=== PATIENT | female | born 1965 | race Caucasian/White ===

== ENCOUNTER 2016-04-26 06:41 | Outpatient (CLI) | payer MEDICARE ==
[~2016-04-26] VITALS: Ht 167.6 cm; Wt 62.7 kg
--- NOTE | ~2016-04-26 | HEMODYNAMI ---
PATIENT:BRENDA LUZ MEDICAL RECORD: [id number] : 61 LOCATION:D.CAT ADMISSION DATE: 04/26/16 Generatedon:04/26/20169:27 Patient name: BRENDA LUZ Patient #: [id number] SSN: : 1965 Date of study: 04/26/2016 Page: Of Hemodynamic Procedure Report Patient Data Patient Demographics Procedure consent was obtained First Name: BRENDA Gender: Female Last Name: NATTY : 1965 [facility] Initial: D Age: 51 year(s) Patient #: [id number] Race: Additional ID: [id number] Contact details [address]: [address] [place] [address] [place] State: [place] City: [place] Zip code: [address] Past Medical History History of disease Date Diagnosis Comments CAD Allergies Allergen Reaction Date Comments Reported Other allergy 04/21/2015 Morphine, PCN, Stadol Other allergy 04/26/2016 stadol,pcn,morphine Admission Admission Data Admission Date: 04/26/2016 Admission Time: 6:41 Height (in.): 66 BSA: 1.71 (m2) Height (cm.): 167.64 BMI: 22.43 (kg/m2) Weight (lbs.): 139 Weight (kg.): 63.05 Current Diagnosis Diagnosis Description Stable angina Lab Results Lab Result Date: 04/26/2016 Lab Result Time: 0:00 Biochemistry Name Units Result Min Max BUN mg/dl 6 -*(----)-- 7 18 Creatinine mg/dl 1.1 --(--*-)-- 0.6 1.3 CBC Name Units Result Min Max Hemoglobin g/dl 15.3 --(-*--)-- 13.5 17.5 Procedure Procedure Types Cath Procedure Diagnostic Procedure [facility] w/Coronaries FFR/IVUS Intra-Coronary IVUS Initial PCI Procedure Coronary Stent Initial x2 Miscellaneous Procedures Moderate Sedation up to 30 minutes Procedure Description Procedure Date Procedure Date: 04/26/2016 Procedure Start Time: 8:59 Procedure End Time: 9:27 Procedure Staff Name Function Jc Rice MD Performing Physician Carly Leon RT Scrub Liv Landry RN Nurse Claudia Quinones RT Monitor Saqib Juárez RT Photo Journalist Procedure Data Cath Procedure Fluoroscopy Diagnostic fluoroscopy Total fluoroscopy Time: 8.3 time: 8.3 min min Diagnostic fluoroscopy Total fluoroscopy dose: 534 dose: 534 mGy mGy Contrast Material Contrast Material Type Amount (ml) Isovue 300 128 Entry Location Entry Primary Successful Side Size Upsize Upsize Entry Closure Succes sful Closure Location (Fr) 1 (Fr) 2 (Fr) Remarks Device Remarks Femoral Right 5 Fr Exoseal artery Estimated blood loss: 10 ml Diagnostic catheters Device Type Used For End Catheter Placement Cordis 5Fr Pigtail LV Angiography Catheter (MP) Cordis 5Fr JL 4.0 Left Coronary Catheter (MP) Angiography Cordis 5Fr 3DRC Catheter Right Coronary (MP) Angiography Diagnostic Infinity 5Fr Right Coronary AR 2 MOD catheter Angiography Diagnostic Infinity 5Fr Right Coronary AL 1 catheter Angiography Procedure Complications No complications Procedure Medications Medication Administration Route Dosage Oxygen NC 2 l/min Lidocaine 2% added to field 20 Heparin Flush Bag added to field 2 bags (1000units/500ml NS) 0.9% NaCl I.V. 100 ml/hr Zofran I.V. 4 mg Versed I.V. 1 mg Fentanyl I.V. 50 mcg Versed I.V. 1 mg Fentanyl I.V. 50 mcg Versed I.V. 1 mg Fentanyl I.V. 50 mcg Heparin Bolus I.V. 4000 units Versed I.V. 1 mg Fentanyl I.V. 50 mcg Versed I.V. 1 mg Fentanyl I.V. 50 mcg 0.9% NaCl I.V. bolus 500 ml Fentanyl I.V. 50 mcg Hemodynamics Rest BSA: 1.71 (m2) HGB: 15.3 (g/dl) O2 Consumption: Estimated: 170.11 (ml/min) O2 Co nsumption indexed: Estimated:99.48 (ml/min/m) Heart Rate: 77 (bpm) Snapshots Pre Cath Intra NCS Post Cath Vital Signs Time Heart Resp SPO2 etCO2 TH0uoic NIBP (mmHg) Rhythm Pain Sedation Rate (ipm) (%) (mmHg) (mmHg) Status Level (bpm) 8:42:25 74 19 100 0 0 116/74(100) NSR 0 (11) 10(A) , No pain 8:46:31 73 16 100 0 0 106/73(94) NSR 0 (11) 10(A) , No pain 8:50:35 78 16 100 0 0 115/70(102) NSR 0 (11) 10(A) , No pain 8:54:45 73 17 100 0 0 98/62(80) NSR 0 (11) 10(A) , No pain 8:58:50 73 15 99 0 0 91/55(76) NSR 0 (11) 10(A) , No pain 9:02:50 71 17 98 0 0 108/67(89) NSR 0 (11) 10(A) , No pain 9:06:58 81 17 95 0 0 99/61(75) NSR 0 (11) 10(A) , No pain 9:11:04 79 16 95 0 0 91/53(69) NSR 0 (11) 10(A) , No pain 9:15:09 83 16 97 0 0 85/49(65) NSR 0 (11) 10(A) , No pain 9:19:11 80 15 99 0 0 89/50(68) NSR 0 (11) 10(A) , No pain 9:23:15 80 17 100 0 0 89/54(72) NSR 0 (11) 10(A) , No pain 9:27:17 76 11 99 0 0 84/56(68) NSR 0 (11) 10(A) , No pain Medications Time Medication Route Dose Verified Delivered Reason Notes Effectiveness by by 8:44:59 Oxygen NC 2 Jc Peck used for l/min Krystal Landry RN procedure 8:45:05 Lidocaine 2% added 20ml Jc Jc for local to vial Krystal Rice MD anesthetic field 8:45:12 Heparin Flush added 2 Jc Greene used for Bag to bags Krystal Rice MD procedure (1000units/500ml field NS) 8:45:20 Zofran I.V. 4 mg Jc Peck Per physician pt Krystal Landry RN states nausea 8:45:20 0.9% NaCl I.V. 100 Jc Buffie Per physician ml/hr Krystal Landry RN 8:56:35 Versed I.V. 1 mg Jc Buffie for sedation Krystal Landry RN 8:56:41 Fentanyl I.V. 50 Jc Buffie for sedation mcg Krystal Landry RN 9:00:58 Versed I.V. 1 mg Jc Buffie for sedation Krystal Landry RN 9:01:02 Fentanyl I.V. 50 Jc Buffie for sedation mcg Krystal Landry RN 9:03:53 Versed I.V. 1 mg Jc Buffie for sedation Krystal Landry RN 9:03:57 Fentanyl I.V. 50 Jc Buffie for sedation mcg Krystal Landry RN 9:07:00 Fentanyl I.V. 50 Jc Buffie for sedation mcg Krystal Landry RN 9:07:56 Versed I.V. 1 mg Jc Buffie for sedation Krystal Landry RN 9:11:47 Heparin Bolus I.V. 4000 Jc Buffie for verifie d units Krystal Landry RN anticoagulation rodrigo rice 9:12:28 Versed I.V. 1 mg Jc Buffie for sedation Krystal Landry RN 9:12:32 Fentanyl I.V. 50 Jc Buffie for sedation mcg Krystal Landry RN 9:15:29 0.9% NaCl I.V. 500 Jc Leviie Per physician bolus ml Krystal Landry RN 9:18:21 Fentanyl I.V. 50 Jc Buffie for sedation mcg Krystal Landry RN Procedure Log Time Note 8:29:42 ACC Patient presents with Stable Angina CCS Anginal Class 2--Slight limitation of ordinary activity. 8:29:44 Diagnostic Cath status Elective 8:29:47 Jan Fairbanks RT(R) sent for patient. Start room use. 8:29:51 Time tracking: Regular hours 8:29:56 Plan of Care:Hemodynamics will remain stable., Cardiac rhythm will remain stable., Comfort level will be maintained., Respiratory function will remain adequate., Patient/ family verbilizes understanding of procedure., Procedure tolerated without complication., Recovers from procedure without complications.. 8:30:46 Lab Result : Hemoglobin 15.3 g/dl 8:30:46 Lab Result : Creatinine 1.1 mg/dl 8:30:46 Lab Result : BUN 6 mg/dl 8:34:47 Patient Height : 66 inches 8:34:50 Patient Weight : 139 lbs 8:34:54 Current Diagnosis : Stable angina 8:35:36 Patient received from Pre/Post Procedure Room to CCL 1 Alert and oriented. Tansferred to table in Supine position. 8:35:37 Warm blankets applied, and terese hugger turned on for patient comfort. 8:35:38 Correct patient and procedure confirmed by team. 8:35:39 Signed procedure consent form obtained from patient. 8:35:40 ECG and BP/O2 sat monitors applied to patient. 8:41:25 Vital chart was started 8:42:17 Full Disclosure recording started 8:42:20 Rhythm: sinus rhythm 8:42:26 H&P Date Dictated: 04/24/2016 Within 30 days and on chart., H&P Addendum completed by physician on day of procedure. (MUST COMPLETE FOR ALL OUTPATIENTS). 8:42:27 Pre-procedure instructions explained to patient. 8:42:27 Pre-op teaching completed and patient verbalized understanding. 8:42:28 Family in waiting room. 8:42:32 Patient NPO since Midnight. 8:43:20 Patient allergic to Other allergystadol,pcn,morphine 8:43:22 Is the patient allergic to Iodine/contrast media? No. 8:43:28 Is patient on blood thinner?Yes 8:43:30 ACC The patient was administered the following blood thiners within the last 24 hours: ACCPlavix 8:43:54 Patient diabetic? No. 8:43:56 Previous problem with sedation/anesthesia? No ? 8:44:08 Snore? Yes 8:44:09 Sleep apnea? No 8:44:10 Deviated septum? No 8:44:10 Opens mouth fully? Yes 8:44:11 Sticks out tongue? Yes 8:44:13 Airway obstruction? No ? 8:44:15 Dentures? No ? 8:44:22 Pre procedure: right dorsailis pedis pulse 2+ Normal; easily identifiable; not easily obliterated 8:44:24 Patient pain scale 0/10 ?. 8:44:38 IV patent on arrival in left hand with 0.9% NaCl at O. 8:44:51 Lab results completed and on chart. 8:44:56 Right groin area was prepped with chlora-prep and draped in sterile fashion 8:44:57 Alarms reviewed by R. N. 8:44:57 Sharps counted by scrub and verified by R.N. 8:44:59 Oxygen 2 l/min NC was given by Liv Landry RN; used for procedure; 8:45:05 Lidocaine 2% 20ml vial added to field was given by Jc Rice MD; for local anesthetic; 8:45:12 Heparin Flush Bag (1000units/500ml NS) 2 bags added to field was given by Jc Rice MD; used for procedure; 8:45:20 Zofran 4 mg I.V. was given by Liv Landry RN; Per physician; pt states nausea 8:45:20 0.9% NaCl 100 ml/hr I.V. was given by Liv Landry RN; Per physician; 8:46:25 Use device set Femoral Dx 8:46:26 Acist Syringe opened to sterile field. 8:46:27 Bag Decanter opened to sterile field. 8:46:28 Medline Cath Pack opened to sterile field. 8:46:28 Terumo 5Fr [place] Sheath opened to sterile field. 8:46:29 St Lamine 260cm J .035 wire opened to sterile field. 8:46:30 Acist Hand Control opened to sterile field. 8:46:31 Acist Manifold opened to sterile field. 8:46:32 Diagnostic Infinity 5Fr Multipack catheter opened to sterile field. 8:46:33 Tegaderm 4 x 4 opened to sterile field. 8:50:51 Baseline sample Acquired. 8:52:46 Physician paged 8:54:00 Zero performed for pressure channel P1 8:55:31 Final Timeout: patient, procedure, and site verified with staff and physician. All members of the team are in agreement. 8:55:33 Right groin site verified by team. 8:55:37 Physical assessment completed. ASA score P 2 - A patient with mild systemic disease as per Jc Rice MD. 8:55:40 Sedation plan: IV Moderate Sedation Versed, Fentanyl 8:56:35 Versed 1 mg I.V. was given by Liv Landry RN; for sedation; 8:56:41 Fentanyl 50 mcg I.V. was given by Liv Landry RN; for sedation; 8:58:26 Procedure started. 8:59:45 Local anesthetic to right femoral artery with Lidocaine 2% by Jc Rice MD.INITIAL ACCESS ONLY 9:00:37 A 5 Fr sheath was inserted into the Right Femoral artery 9:00:58 Versed 1 mg I.V. was given by Liv Landry RN; for sedation; 9:01:02 Fentanyl 50 mcg I.V. was given by Liv Landry RN; for sedation; 9:01:35 A Cordis 5Fr Pigtail Catheter (MP) was advanced over the wire and used for LV Angiography. 9:01:38 Catheter removed. 9:02:11 A Cordis 5Fr JL 4.0 Catheter (MP) was advanced over the wire and used for Left Coronary Angiography. 9:02:45 Curtis Whisper J 300cm 0.014 guide wire opened to sterile field. 9:02:46 Comuto BasixCompak Inflation Kit opened to sterile field. 9:02:59 Terumo 6Fr [place] Sheath opened to sterile field. 9:03:43 Catheter removed. 9:03:48 A Cordis 5Fr 3DRC Catheter (MP) was advanced over the wire and used for Right Coronary Angiography.removed; unable to cannulate. 9:03:53 Versed 1 mg I.V. was given by Liv Landry RN; for sedation; 9:03:57 Fentanyl 50 mcg I.V. was given by Liv Landry RN; for sedation; 9:04:58 A Diagnostic Infinity 5Fr AR 2 MOD catheter was advanced over the wire and used for Right Coronary Angiography.removed; unable to cannulate. 9:06:36 Palringotronic Launcher 6Fr HS I guide catheter opened to sterile field. 9:06:47 6 Fr HS 1 guide catheter was inserted over the wire 9:07:00 Fentanyl 50 mcg I.V. was given by Liv Landry RN; for sedation; 9:07:56 Versed 1 mg I.V. was given by Liv Landry RN; for sedation; 9:09:11 Guide Catheter removed. unable to cannulate vessel. 9:09:40 A Diagnostic Infinity 5Fr AL 1 catheter was advanced over the wire and used for Right Coronary Angiography. 9:10:56 Catheter removed. 9:11:08 [place] IVUS Catheter opened to sterile field. 9:11:47 Heparin Bolus 4000 units I.V. was given by Liv Landry RN; for anticoagulation; verified rodrigo rice 9:11:57 Cordis 6FR XBLAD 3.5 guide catheter opened to sterile field. 9:12:10 6 Fr XBLAD 3.5 guide catheter was inserted over the wire 9:12:18 Whisper wire advanced. 9:12:28 Versed 1 mg I.V. was given by Liv Landry RN; for sedation; 9:12:31 IVUS catheter advanced over wire. 9:12:32 Fentanyl 50 mcg I.V. was given by Liv Landry RN; for sedation; 9:13:36 IVUS pass to Circ lesion performed. 9:15:23 IVUS catheter removed over wire. 9:15:29 0.9% NaCl 500 ml I.V. bolus was given by Liv Landry RN; Per physician; 9:17:01 Inflation Number: 1 A Medtronic Resolute 3.0 X 15 stent was prepped and advanced across the Mid CX. The stent was deployed at 13 SHERRI for 0:09 (min:sec). 9:17:19 Wire redirected to LAD. 9:17:47 Inflation number: 1 The stent balloon was then re-inflated across the Prox LAD to 21 SHERRI for 0:11 (min:sec). 9:18:05 Stent catheter was removed intact over wire. 9:18:21 Fentanyl 50 mcg I.V. was given by Liv Landry RN; for sedation; 9:19:50 Inflation Number: 2 A Medtronic Resolute 3.5 X 12 stent was prepped and advanced across the Prox LAD. The stent was deployed at 17 SHERRI for 0:07 (min:sec). 9:20:23 Stent catheter was removed intact over wire. 9:20:24 Wire removed. 9:20:24 Guide catheter removed. 9:20:31 Sheath removed intact; hemostasis achieved with Exoseal to the Right Femoral artery. 9:20:35 Procedure ended.(Physican Out) 9:21:12 Fluoroscopy time 08.30 minutes. 9:21:15 Fluoroscopy dose: 534 mGy 9:21:15 Flurop Dose total: 534 9:21:19 Contrast amount:Isovue 300 128ml. 9:21:20 Sharps counted by scrub and verified by R.N. 9:21:28 Insertion/operative site no bleeding no hematoma. 9:21:35 Post-op/insertion site Right Femoral artery dressed using a 4 x 4 and Tegaderm. 9:21:39 Post right femoral artery:stable, clean and dry 9:21:40 Post Procedure Pulses reassessed and unchanged 9:21:44 Post-procedure physical assessment completed. ASA score P 2 - A patient with mild systemic disease as per Jc Rice MD. 9:21:46 Post procedure rhythm: unchanged. 9:22:02 Estimated blood loss: 10 ml 9:22:04 Post procedure instruction explained to patient.Patient verbalizes understanding. 9:22:04 Patient needs reinforcement of post procedure teaching. 9:22:18 Procedure type changed to Cath procedure, Diagnostic procedure, LHC, LHC w/Coronaries, FFR/IVUS, Intra-Coronary IVUS Initial, PCI procedure, Coronary Stent Initial x2, Miscellaneous Procedures, Moderate Sedation up to 30 minutes 9:22:24 Procedure Complication : No complications 9:22:36 See physician's report for complete and final results. 9:23:51 Cordis 6Fr Exoseal opened to sterile field. 9:24:20 Procedure and supply charges have been captured, reviewed, submitted and are correct. 9:26:54 Vital chart was stopped 9:26:55 Report given to Pre/Post Procedure Room. 9:26:58 Patient transfered to Pre/Post Procedure Room with Stretcher. 9:27:06 Procedure ended. 9:27:06 Full Disclosure recording stopped 9:27:37 End room use (Document Last) Intervention Summary Intervention Notes Time ActionType Lesion and Equipment Action# Pressure Duration Attributes Used 9:17:01 Place stent Mid CX Medtronic 1 13 00:09 Resolute 3.0 X 15 stent 9:17:47 Reinflate Prox LAD Medtronic 1 21 00:11 stent Resolute balloon 3.0 X 15 stent 9:19:50 [address] stent Prox LAD Medtronic 2 17 00:07 Resolute 3.5 X 12 stent Device Usage Item Name Manufacture Quantity Catalog Hospital Part Current Minimal Lot# / Number Charge Number Stock Stock Serial# Code Donte Kent 1 16265 [id number] 979681 062034 20 Syringe Medical [employer] Bag Microtek 1 2002S 135107 45200 123572 5 Retention Education. Medline Cardinal 1 [id number] 177278 69224 630583 5 Cath Pack Health Terumo 5Fr Terumo 1 KPC162 206404 052261 086014 [address] Lamine St Lamine 1 536576 383929 885320 424760 30 260cm J .035 wire Acist Hand Acist 1 66318 744384 321538 745630 5 Control Medical Systems Inc Acist Acist 1 34376 806489 069028 408786 5 [facility] Medical Systems Inc Diagnostic Cardinal 1 RA0100 438224 [address] Labs Health 5Fr Multipack catheter Tegaderm 4 3M 1 1626W 200212 008733 080640 5 x 4 Cordis 5Fr Cardinal 1 856819 5 Pigtail Health Catheter (MP) Cordis 5Fr Cardinal 1 010684 5 JL 4.0 Health Catheter (MP) Curtis Curtis 1 [id number] 765589 061651 101866 5 Whisper J Vascular 300cm 0.014 guide wire Merit Merit 1 [id number] 258628 853375 949041 15 InstallMonetizer Medical Inflation Kit Terumo 6Fr Terumo 1 CAY360 988082 708382 617136 40 [place] Sheath Cordis 5Fr Cardinal 1 540924 5 3DRC Health Catheter (MP) Diagnostic Cardinal 1 [id number] 813476 590594 963830 20 ePAC Technologies 5Fr AR 2 MOD catheter Medtronic Medtronic 1 [id number] 425957 34571 283169 1 Launcher 6Fr HS I guide catheter Diagnostic Cardinal 1 [id number] 265822 801982 062369 15 ePAC Technologies 5Fr AL 1 catheter [place] 1 [id number] 621495 532581 734371 8 [place] Eagleye IVUS Catheter Cordis 6FR Cardinal 1 [id number] 423833 333111 342235 10 XBLAD 3.5 Health guide catheter Medtronic Medtronic 1 [id number] 189442 185917 1 [id number] Resolute 3.0 X 15 stent Medtronic Medtronic 1 [id number] 249280 780581 6 [id number] Resolute 3.5 X 12 stent Cordis 6Fr Cardinal 1 EX600 519052 308775 703632 10 INBEP Signature Audit [place] Stage Time Signature Unsigned Intra-Procedure 04/26/2016 Claudia 9:27:48 AM Counts RT(R) Signatures Monitor : Claudia Signature : Counts RT Date : Time : [facility] [address] [facility] [place] [address]
[~2016-04-26 06:41] MED LIST: ARMOUR THYROID30 MG PO; ASPIRIN 81 MG E81 MG PO; NORCO 10/325 TA1 TA1 PO; NUCYNTA100 MG PO; PLAVIX75 MG PO; PRAVACHOL40 MG PO; VITAMIN D250000 UNIT; VIVELLE-DO1 PATCH.B1 TD; XANAX0.5 MG PO; ZIAC 5/6.25 MG1 TAB PO; ZOCOR20 MG PO
[2016-04-26 07:00] VITALS: BP 113/75; Ht 167.6 cm; Wt 62.7 kg
[2016-04-26 07:22] LABS: BASOPHILS 0.1 % (0.0-2.0); EOSINOPHILS 0.5 % (0-7); HEMATOCRIT 44.3 % (36.0-48.0); HEMOGLOBIN 15.3 g/dL (12-16); IMMATURE GRANULOCYTES 0.1 % (0-5); LYMPHOCYTES 33.2 % (15-50); MCH 32.9 pg (26.0-34.0); MCHC 34.5 g/dL (31.0-37.0); MCV 95.3 fL (80.0-100.0); MEAN PLATELET VOLUME 10.4 fL (7.4-10.4); MONOCYTES 5.4 % (2-11); NEUTROPHILS 60.7 % (40-80); PLATELET COUNT 183 10x3/uL (130-400); RBC 4.65 10x6/uL (4.00-5.40); RDW 12.8 % (11.5-14.5); WBC 7.3 10x3/uL (4.8-10.8)
[2016-04-26 07:23] LABS: ANION GAP 13.5 mmol/L (8-16); CALCIUM 9.1 mg/dL (8.5-10.1); CARBON DIOXIDE 27.5 mmol/L (21.0-32.0); CREATININE - SERUM 1.1 mg/dL (0.6-1.3)
--- NOTE | 2016-04-26 09:55 | NUR ---
PATIENT C/O BACK PAIN. NORCO 10MG/325PO GIVEN PER ORDER. 20MG ORDERED PER DR. HIRSCH BUT PATIENT REQUESTED ON LY 10MG. ALL VITALS REMAIN WNL. NSR RATE 67 W NO C/O CHEST PAIN. PULSES PALP X 4. R GROIN 6F EXOSEAL C/D/I WITH NO HEMATOMA OR BLEEDING. BROTHER AT BEDSIDE.
--- NOTE | 2016-04-26 11:21 | NUR ---
PATIENT C/O BACK PAIN 10/17, WILL NOT TAKE ANOTHER NORCO STATES "ITS LIKE TAKING WATER!" CALLED JOYCELYN IN LAB. T/O FOR DILAUDID 2MG IV NOW. WILL MONITOR FOR EFFECTIVENESS. R GROIN REMAINS C/D/I WITH NO HEMATOMA OR BLEEDING.
--- NOTE | 2016-04-26 12:03 | NUR ---
DILAUDID AND ZOFRAN BOTH GIVEN IV PER ORDER. WILL MONITOR FOR EFFECTIVENESS. ALL VITALS WNL. R GROIN REMAINS C/D/I WITH NO HEMATOMA OR BLEEDING.
--- NOTE | 2016-04-26 12:27 | NUR ---
VSS WITH CHEST PAIN DENIED HR 68 6FR EXOSEAL R/GROIN CDI NO BLEEDING NO HEMATOMA NOTED WILL MONITOR
--- NOTE | 2016-04-26 12:53 | NUR ---
HOB ELEVATED, WILL MONITOR R GROIN FOR BLEEDING.
--- NOTE | 2016-04-26 13:23 | NUR ---
PIV REMOVED FROM LEFT ARM WITH DRESSING APPLIED CHEST PAIN IS DENIED WITH VSS. DRESSING TO R GROIN CHANGED. TEGADERM AND 2X2 APPLIED. UP FROM BED TO DRESS.
--- NOTE | 2016-04-26 13:30 | NUR ---
AMBULATED TO BATHROOM TO VOID. D/C INSTRUCTIONS DISCUSSED WITH PATIENT AND FAMILY AT BEDSIDE. WHEELED OUT BY GARBAGE COLLECTOR DRIVER TEAM. R GROIN REMAINS C/D/I WITH NO HEMATOMA OR BLEEDING.
--- NOTE | 2016-05-03 08:46 | OP ---
PATIENT NAME: BRENDA LUZ MEDICAL RECORD: [id number] :61 LOCATION:D.CAT ADMISSION DATE: SURGEON: LAURA HIRSCH MD DATE OF OPERATION: 04/26/2016 PROCEDURES: 1. PTCA stent of the LAD. 2. PTCA stent of the left circumflex. 3. Intravascular ultrasound ____ circumflex. 4. Left heart catheterization. 5. Selective coronary angiography. 6. Left ventriculogram. INDICATION: Angina and coronary artery disease. DESCRIPTION OF THE PROCEDURE: After informed consent was obtained, after detailed explanation of risks, benefits as well as alternative therapies, the patient elected to proceed with angiogram and angioplasty. The right femoral area was prepped and draped in a normal sterile fashion. Right femoral artery was cannulated via modified Seldinger technique with placement of 6-Welsh sheath. All catheters exchanged through this sheath. FINDINGS: The left ventriculogram was performed in the standard 30-degree AMANDA view reveals good cardiac wall motion throughout all segments. Overall ejection fraction estimated 50%. SELECTIVE CORONARY ANGIOGRAPHY: 1. Left main showed no significant angiographic disease. 2. Left anterior descending has previously placed stent with greater than 70% in-stent restenosis proximally, otherwise the LAD and its branches have mild irregularities, but no flow-limiting stenosis. 3. The left circumflex has a 65% to 70% stenosis proximally confirmed by intravascular ultrasound. 4. The right coronary has previously placed stent. This is widely patent. There is no disease elsewise throughout the RCA or its branches throughout. PERCUTANEOUS TRANSLUMINAL CORONARY ANGIOPLASTY STENT OF THE LEFT ANTERIOR DESCENDING AND CIRCUMFLEX: The circumflex was addressed with a 3.0 x 15 mm Resolute, the LAD with a 3.5 x 12 mm Resolute. Result was 0% residual stenosis. OVERALL IMPRESSION: Successful percutaneous transluminal coronary angioplasty stent of the left anterior descending and circumflex, both going from 65% to 70% initial stenosis to 0% residual. TRANSINT:[id number] Voice Confirmation ID: [id number] DOCUMENT ID: [id number] LAURA HIRSCH MD at 0846 CC: [id number] DICTATION DATE: 04/26/16 0924 MEDICAL BILLER CODER: 04/26/16 1810 DEP CLI 04/26/16 [facility] [address] [place] [address]
== END 2016-04-26 13:34 | disposition home or self-care (01) ==
LOC: D.CATH 06:41
PROVIDERS: Internal Medicine Interventional Cardiology
DX: I25.119 Atherosclerotic heart disease of native coronary artery with unspecified angina pectoris (principal); T82.855A Stenosis of coronary artery stent, initial encounter
CPT/HCPCS: 92978; 93458; C9600 ×2

== ENCOUNTER 2016-06-25 15:32 | Emergency (ER) | payer MEDICARE ==
[2016-04-26 07:00] VITALS: BMI 22.3
[2016-06-25 16:27] LABS: BASOPHILS 0.1 % (0.0-2.0); EOSINOPHILS 0.2 % (0-7); HEMATOCRIT 42.4 % (36.0-48.0); HEMOGLOBIN 14.3 g/dL (12-16); LYMPHOCYTES 29.7 % (15-50); MCH 33.3 pg (26.0-34.0); MCHC 33.7 g/dL (31.0-37.0); MCV 98.8 fL (80.0-100.0); MEAN PLATELET VOLUME 10.2 fL (7.4-10.4); MONOCYTES 3.4 % (2-11); NEUTROPHILS 66.6 % (40-80); PLATELET COUNT 211 10x3/uL (130-400); RBC 4.29 10x6/uL (4.00-5.40); RDW 13.1 % (11.5-14.5)
[2016-06-25 16:34] LABS: APPEARANCE CLEAR (CLEAR); BILIRUBIN NEGATIVE (NEGATIVE); COLOR YELLOW (YELLOW); GLUCOSE NEGATIVE (NEGATIVE); KETONE NEGATIVE (NEGATIVE); LEUKOCYTE ESTERASE NEGATIVE (NEGATIVE); NITRITE NEGATIVE (NEGATIVE); PROTEIN NEGATIVE (NEGATIVE); UROBILINOGEN NORMAL (NORMAL)
[2016-06-25 16:43] LABS: ALBUMIN 3.7 g/dL (3.4-5.0); BILIRUBIN - TOTAL 0.35 mg/dL (0.2-1.3); CARBON DIOXIDE 33.6 mmol/L (21.0-32.0); CREATININE - SERUM 1.2 mg/dL (0.6-1.3); POTASSIUM - SERUM 3.6 mmol/L (3.5-5.1); PROTEIN - SERUM 7.7 g/dL (6.4-8.2)
== END 2016-06-25 19:06 | disposition home or self-care (01) ==
LOC: D.ER 15:32
PROVIDERS: Emergency Medicine
DX: R10.9 Unspecified abdominal pain (principal); I25.10 Atherosclerotic heart disease of native coronary artery without angina pectoris

== ENCOUNTER 2016-11-08 07:44 | Outpatient (CLI) | payer MEDICARE ==
[~2016-11-08] VITALS: Ht 167.6 cm; Wt 60.9 kg
--- NOTE | ~2016-11-08 | HEMODYNAMI ---
PATIENT:BRENDA LUZ MEDICAL RECORD: [id number] : 61 LOCATION:D.CAT ADMISSION DATE: 11/08/16 Generatedon:11/08/201610:31 Patient name: BRENDA LUZ Patient #: [id number] SSN: : 1965 Date of study: 11/08/2016 Page: Of Hemodynamic Procedure Report Patient Data Patient Demographics Procedure consent was obtained First Name: BRENDA Gender: Female Last Name: NATTY : 1965 [facility] Initial: D Age: 51 year(s) Patient #: [id number] Race: Additional ID: [id number] Contact details [address]: [address] [place] [address] [place] State: [place] City: [place] Zip code: [address] Past Medical History History of disease Date Diagnosis Comments CAD Allergies Allergen Reaction Date Comments Reported Other allergy 04/21/2015 Morphine, PCN, Stadol Other allergy 04/26/2016 stadol,pcn,morphine Penicillins 11/08/2016 Morphine 11/08/2016 Admission Admission Data Admission Date: 11/08/2016 Admission Time: 7:44 Lab Results Lab Result Date: 11/08/2016 Lab Result Time: 0:00 Biochemistry Name Units Result Min Max Creatinine mg/dl 1.3 --(---*)-- 0.6 1.3 CBC Name Units Result Min Max Hemoglobin g/dl 14.1 --(*---)-- 13.5 17.5 Procedure Procedure Types Cath Procedure Diagnostic Procedure LHC LHC w/Coronaries PCI Procedure PTCA Initial Miscellaneous Procedures Moderate Sedation up to 30 minutes Procedure Description Procedure Date Procedure Date: 11/08/2016 Procedure Start Time: 10:01 Procedure End Time: 10:31 Procedure Staff Name Function Jc Rice MD Performing Physician Liv Landry RN Nurse Claudia Quinones RT Monitor Jan Fairbanks RT Scrub Regina Butler RT Scrub Procedure Data Cath Procedure Fluoroscopy Diagnostic fluoroscopy Total fluoroscopy Time: 9.4 time: 9.4 min min Diagnostic fluoroscopy Total fluoroscopy dose: 368 dose: 368 mGy mGy Contrast Material Contrast Material Type Amount (ml) Isovue 300 131 Entry Location Entry Primary Successful Side Size Upsize Upsize Entry Closure Succes sful Closure Location (Fr) 1 (Fr) 2 (Fr) Remarks Device Remarks Femoral Right 5 Fr 6 Fr artery Short Estimated blood loss: 10 ml Diagnostic catheters Device Type Used For End Catheter Placement Cordis 5Fr Pigtail LV Angiography Catheter (MP) Cordis 5Fr JL 4.0 Left Coronary Catheter (MP) Angiography Cordis 5Fr 3DRC Catheter Right Coronary (MP) Angiography Procedure Complications No complications Procedure Medications Medication Administration Route Dosage Oxygen NC 2 l/min Lidocaine 2% added to field 20 Heparin Flush Bag added to field 2 bags (1000units/500ml NS) 0.9% NaCl I.V. 100 ml/hr Versed I.V. 2 mg Fentanyl I.V. 100 mcg Heparin Bolus I.V. 4000 units Versed I.V. 2 mg Fentanyl I.V. 100 mcg Versed I.V. 2 mg Fentanyl I.V. 100 mcg Hemodynamics Rest HGB: 14.1 (g/dl) Heart Rate: 71 (bpm) Snapshots Pre Cath Intra NCS Post Cath Vital Signs Time Heart Resp SPO2 etCO2 [id number] NIBP Rhythm Pain Sedation Rate (ipm) (%) (mmHg) (mmHg) (mmHg) Status Level (bpm) 9:27:17 65 20 99 0 0 112/70(83) NSR 0 (11) 10(A) , No pain 9:31:24 62 20 100 0 0 104/64(79) NSR 0 (11) 10(A) , No pain 9:35:28 66 17 99 0 0 107/68(93) NSR 0 (11) 10(A) , No pain 9:39:36 65 15 99 0 0 90/61(73) NSR 0 (11) 10(A) , No pain 9:43:40 66 15 97 0 0 88/56(67) NSR 0 (11) 10(A) , No pain 9:47:42 70 17 97 0 0 90/56(70) NSR 0 (11) 10(A) , No pain 9:51:43 71 14 97 0 0 88/56(66) NSR 0 (11) 10(A) , No pain 9:55:45 72 15 98 0 0 90/53(69) NSR 0 (11) 10(A) , No pain 9:59:47 76 16 96 0 0 88/63(73) NSR 0 (11) 10(A) , No pain 10:03:48 76 16 93 0 0 77/58(66) NSR 0 (11) 10(A) , No pain 10:07:48 79 15 94 0 0 82/52(60) NSR 0 (11) 9(A) , No pain 10:11:52 82 15 94 0 0 79/44(58) NSR 0 (11) 9(A) , No pain 10:15:51 82 15 94 0 0 92/53(67) NSR 0 (11) 9(A) , No pain 10:19:55 82 14 93 0 0 84/54(65) NSR 0 (11) 9(A) , No pain 10:23:57 83 15 93 0 0 85/47(65) NSR 0 (11) 9(A) , No pain 10:27:56 80 15 97 0 0 89/56(67) NSR 0 (11) 10(A) , No pain Medications Time Medication Route Dose Verified Delivered Reason Notes Effectiveness by by 9:35:28 Oxygen NC 2 Jc Buffie used for l/min Krystal Landry RN procedure 9:35:39 Lidocaine 2% added 20ml Jc Jc for local to vial Krystal Rice MD anesthetic field 9:35:45 Heparin Flush added 2 Jc Jc used for Bag to bags Krystal Rice MD procedure (1000units/500ml field NS) 9:35:54 0.9% NaCl I.V. 100 Jc Buffie Per physician ml/hr Krystal Landry RN 10:00:39 Versed I.V. 2 mg Jc Buffie for sedation Krystal Landry RN 10:00:54 Fentanyl I.V. 100 Jc Buffie for sedation mcg Krystal Landry RN 10:05:31 Versed I.V. 2 mg Jc Buffie for sedation Krystal Landry RN 10:05:36 Fentanyl I.V. 100 Jc Buffie for sedation mcg Krystal Landry RN 10:07:24 Heparin Bolus I.V. 4000 Jc Buffie for verifi ed units Krystal Landry RN anticoagulation with dr rice 10:14:25 Versed I.V. 2 mg Jc Peck for sedation Krystal Landry RN 10:14:32 Fentanyl I.V. 100 cJ Peck for sedation mcg Krystal Landry RN Procedure Log Time Note 9:15:15 Liv Landry RN sent for patient. Start room use. 9:19:16 Time tracking: Regular hours 9:19:22 Plan of Care:Hemodynamics will remain stable., Cardiac rhythm will remain stable., Comfort level will be maintained., Respiratory function will remain adequate., Patient/ family verbilizes understanding of procedure., Procedure tolerated without complication., Recovers from procedure without complications.. 9:21:27 Patient received from Pre/Post Procedure Room to CCL 1 Alert and oriented. Tansferred to table in Supine position. 9:21:28 Warm blankets applied, and terese hugger turned on for patient comfort. 9:21:29 Correct patient and procedure confirmed by team. 9:21:30 Signed procedure consent form obtained from patient. 9:21:31 ECG and BP/O2 sat monitors applied to patient. 9:21:32 Full Disclosure recording started 9:26:14 Vital chart was started 9:26:53 Rhythm: sinus rhythm 9:27:59 H&P Date Dictated: 11/04/2016 Within 30 days and on chart., H&P Addendum completed by physician on day of procedure. (MUST COMPLETE FOR ALL OUTPATIENTS). 9:28:01 Pre-procedure instructions explained to patient. 9:28:01 Pre-op teaching completed and patient verbalized understanding. 9:28:04 Family in patients room. 9:28:06 Patient NPO since Midnight. 9:28:20 Patient allergic to Penicillins 9:28:27 Patient allergic to Morphine 9:28:30 Is the patient allergic to Iodine/contrast media? No. 9:28:32 Is patient on blood thinner?Yes 9:28:34 ACC The patient was administered the following blood thiners within the last 24 hours: ACCPlavix 9:28:50 Patient diabetic? No. 9:28:54 Previous problem with sedation/anesthesia? No ? 9:28:56 Snore? Yes 9:28:57 Sleep apnea? No 9:28:59 Deviated septum? No 9:28:59 Opens mouth fully? Yes 9:29:00 Sticks out tongue? Yes 9:29:02 Airway obstruction? No ? 9:29:05 Dentures? No ? 9:30:35 Pre procedure: right dorsailis pedis pulse 2+ Normal; easily identifiable; not easily obliterated 9:30:37 Patient pain scale 0/10 ?. 9:30:44 IV patent on arrival in left hand with 0.9% NaCl at [facility]. 9::48 Lab Result : Creatinine 1.3 mg/dl 9::48 Lab Result : Hemoglobin 14.1 g/dl 9:31:52 Lab results completed and on chart. 9::55 Right groin area was prepped with chlora-prep and draped in sterile fashion 9::56 Alarms reviewed by R. N. 9::56 Sharps counted by scrub and verified by R.N. 9:32:01 Use device set Femoral Dx 9:32:02 Acist Syringe opened to sterile field. 9:32:03 Bag Decanter opened to sterile field. 9:32:03 Medline Cath Pack opened to sterile field. 9:32:04 Terumo 5Fr [place] Sheath opened to sterile field. 9:32:04 St Lamine 260cm J .035 wire opened to sterile field. 9:32:05 Acist Hand Control opened to sterile field. 9:32:06 Acist Manifold opened to sterile field. 9:32:06 Diagnostic Infinity 5Fr Multipack catheter opened to sterile field. 9:32:07 Tegaderm 4 x 4 opened to sterile field. 9:35:02 Baseline sample Acquired. 9:35:28 Oxygen 2 l/min NC was administered by Liv Landry RN; used for procedure; 9:35:39 Lidocaine 2% 20ml vial added to field was administered by Jc Rice MD; for local anesthetic; 9:35:45 Heparin Flush Bag (1000units/500ml NS) 2 bags added to field was administered by Jc Rice MD; used for procedure; 9:35:54 0.9% NaCl 100 ml/hr I.V. was administered by Liv Landry RN; Per physician; 9:37:41 Zero performed for pressure channel P1 9:38:08 Physician paged 9:59:25 Final Timeout: patient, procedure, and site verified with staff and physician. All members of the team are in agreement. 9:59:31 Right groin site verified by team. 9:59:34 Physical assessment completed. ASA score P 2 - A patient with mild systemic disease as per Jc Rice MD. 9:59:37 Sedation plan: IV Moderate Sedation Versed, Fentanyl 10:00:36 Procedure started. 10:00:39 Versed 2 mg I.V. was administered by Liv Landry RN; for sedation; 10:00:54 Fentanyl 100 mcg I.V. was administered by Liv Landry RN; for sedation; 10:01:48 Local anesthetic to right femoral artery with Lidocaine 2% by Jc Rice MD.INITIAL ACCESS ONLY 10:02:23 A 5 Fr sheath was inserted into the Right Femoral artery 10:03:00 A Cordis 5Fr Pigtail Catheter (MP) was advanced over the wire and used for LV Angiography. 10:03:21 LV gram done using AMANDA 10:03:25 Injector settings: Ml/sec: 10, Volume: 20, 10:03:33 EF : 50 % 10:04:02 Catheter removed. 10:04:17 A Cordis 5Fr JL 4.0 Catheter (MP) was advanced over the wire and used for Left Coronary Angiography. 10:05:09 Quanttus BasixCompak Inflation Kit opened to sterile field. 10:05:10 Curtis Whisper J 300cm 0.014 guide wire opened to sterile field. 10:05:11 Terumo 6Fr [place] Sheath opened to sterile field. 10:05:13 Catheter removed. 10:05:21 A Cordis 5Fr 3DRC Catheter (MP) was advanced over the wire and used for Right Coronary Angiography.removed, unable to cannulate. 10:05:31 Versed 2 mg I.V. was administered by Liv Landry RN; for sedation; 10:05:36 Fentanyl 100 mcg I.V. was administered by Liv Landry RN; for sedation; 10:07:06 Catheter removed. 10:07:24 Heparin Bolus 4000 units I.V. was administered by Liv Landry RN; for anticoagulation; verified with dr rice 10:07:26 Threat Stacktronic Launcher 6Fr AR 2.0 guide catheter opened to sterile field. 10:08:33 Sheath upsized to a 6 Fr Short. 10:08:39 6 Fr AR 2.0 guide catheter was inserted over the wire 10:08:45 Guide Catheter removed. unable to cannulate vessel. 10:08:58 Medtronic Launcher 6Fr HS I guide catheter opened to sterile field. 10:09:07 6 Fr HS I guide catheter was inserted over the wire 10:10:08 RCA angiography performed. 10:11:50 Medtronic Launcher 6Fr 3DRIGHT guide catheter opened to sterile field. 10:12:25 Guide Catheter removed. unable to cannulate vessel. 10:12:34 6 Fr 3DRIGHT guide catheter was inserted over the wire 10:12:44 Cordis 6FR XBLAD 3.5 guide catheter opened to sterile field. 10:14:25 Versed 2 mg I.V. was administered by Liv Landry RN; for sedation; 10:14:32 Fentanyl 100 mcg I.V. was administered by Liv Landry RN; for sedation; 10:15:01 Guide Catheter removed. unable to cannulate vessel. 10:15:33 6 Fr XBLAD 3.5 guide catheter was inserted over the wire 10:16:32 Whisper wire advanced. 10:18:17 Inflation number: 1 A Mozec Rx 3.5 x 20 balloon was prepped and advanced across the Mid LAD, then inflated to 5 SHERRI for 0:10 (min:sec). 10:18:37 Inflation number: 2 The Mozec Rx 3.5 x 20 balloon was reinflated across the Mid LAD, to 6 SHERRI for 0:13 (min:sec). 10:19:04 Balloon removed over the wire. 10:23:12 Inflation number: 3 A [place] Sci Flextome Cutting 3.5 x 10 balloon was prepped and advanced across the Mid LAD, then inflated to 13 SHERRI for 1:57 (min:sec). 10:25:28 Inflation number: 4 The [place] Sci Flextome Cutting 3.5 x 10 balloon was reinflated across the Mid LAD, to 13 SHERRI for 2:04 (min:sec). 10:25:52 Balloon removed over the wire. 10:25:53 Wire removed. 10:25:53 Guide catheter removed. 10:26:08 Cordis 6Fr Exoseal opened to sterile field. 10:26:11 Procedure ended.(Physican Out) 10:26:21 Fluoroscopy time 09.40 minutes. 10:26:25 Flurop Dose total: 368 10:: Fluoroscopy dose: 368 mGy 10::28 Contrast amount:Isovue 300 131ml. 10::29 Sharps counted by scrub and verified by R.N. 10::31 Insertion/operative site no bleeding no hematoma. 10:26:34 Post-op/insertion site Right Femoral artery dressed using a 4 x 4 and Tegaderm. 10::38 Post right femoral artery:stable, clean and dry 10::40 Post Procedure Pulses reassessed and unchanged 10:28:06 Post-procedure physical assessment completed. ASA score P 2 - A patient with mild systemic disease as per Jc Rice MD. 10:28:09 Post procedure rhythm: unchanged. 10::19 Estimated blood loss: 10 ml 10:28:20 Post procedure instruction explained to patient.Patient verbalizes understanding. 10:28:21 Patient needs reinforcement of post procedure teaching. 10::33 Procedure type changed to Cath procedure, Diagnostic procedure, LHC, LHC w/Coronaries, PCI procedure, PTCA Initial, Miscellaneous Procedures, Moderate Sedation up to 30 minutes 10::38 Procedure Complication : No complications 10::39 See physician's report for complete and final results. 10:29:39 Procedure and supply charges have been captured, reviewed, submitted and are correct. 10:31:13 Vital chart was stopped 10::14 Report given to Pre/Post Procedure Room. 10::33 Patient transfered to Pre/Post Procedure Room with Stretcher. 10::40 Procedure ended. 10::40 Full Disclosure recording stopped 10::44 End room use (Document Last) Intervention Summary Intervention Notes Time ActionType Lesion and Equipment Action# Pressure Duration Attributes Used 10:18:17 Inflate Mid LAD Mozec Rx 1 5 00:10 balloon 3.5 x 20 balloon 10:18:37 Reinflate Mid LAD Mozec Rx 2 6 00:13 balloon 3.5 x 20 balloon 10:23:12 Inflate Mid LAD [place] 3 13 01:57 balloon Sci Flextome Cutting 3.5 x 10 balloon 10:25:28 Reinflate Mid LAD [place] 4 13 02:04 balloon Sci Flextome Cutting 3.5 x 10 balloon Device Usage Item Name Manufacture Quantity Catalog Number Hospital Part Current Mini mal Lot# / Charge Number Stock Stock Serial# Code Acist Acist 1 [id number] 165524 791435 010042 20 Syringe Medical Systems Inc Bag Microtek 1 [id number] 257079 88850 387613 5 Atieva Inc. Medline Cardinal 1 [id number] 335267 70904 276240 5 Cath Pack Health Terumo 5Fr Terumo 1 [id number] 588209 932953 101781 [address] Lamine St Lamine 1 100906 649162 104808 369695 30 260cm J .035 wire Acist Hand Acist 1 48512 728636 818461 936475 5 Control Medical Systems Inc Acist Acist 1 41765 110132 212211 700328 5 Fabkids Medical Systems Inc Diagnostic Cardinal 1 [id number] 565038 41083 171305 30 Infinity Health 5Fr Multipack catheter Tegaderm 4 3M 1 1626W 477976 841004 772035 5 x 4 Cordis 5Fr Cardinal 1 730896 5 Pigtail Health Catheter (MP) Cordis 5Fr Cardinal 1 348422 5 JL 4.0 Health Catheter (MP) [facility] Merit 1 [id number] 622262 365731 608899 15 BasixCompak Medical Inflation Kit Curtis Curtis 1 [id number] 036114 679873 837115 5 Whisper J Vascular 300cm 0.014 guide wire Terumo 6Fr Terumo 1 [id number] 666273 863098 641098 40 [place] Sheath Cordis 5Fr Cardinal 1 244012 5 3DRC Health Catheter (MP) Medtronic Medtronic 1 [id number] 209340 00011 788770 1 Launcher 6Fr AR 2.0 guide catheter Medtronic Medtronic 1 [id number] 114288 09391 935805 1 Launcher 6Fr HS I guide catheter Medtronic Medtronic 1 [id number] 289743 026172 086144 1 Launcher 6Fr 3DRIGHT guide catheter Cordis 6FR Cardinal 1 [id number] 209192 397821 414870 10 XBLAD 3.5 Health guide catheter Mozec Rx Cardinal 1 [id number] 245942 80244 632440 5 UMOA76 3.5 x 20 Health balloon [place] Sci [place] 1 [id number] 464817 485212 7586575 1 Flextome Scientific Cutting 3.5 x 10 balloon Cordis 6Fr Cardinal 1 EX600 885526 529417 484924 10 [facility] Health Signature Audit [place] Stage Time Signature Unsigned Intra-Procedure 11/08/2016 Claudia 10:31:54 AM Counts RT(R) Signatures Monitor : Claudia Signature : Counts RT Date : Time : [id number] [place] [address]
[2016-11-08 08:07] VITALS: BP 103/68; Ht 167.6 cm; Wt 60.9 kg
[2016-11-08] MEDS ORDERED: NAC600 MG PO (08:12)
[2016-11-08 08:13] LABS: BASOPHILS 0.1 % (0-2); EOSINOPHILS 0.6 % (0-7); HEMATOCRIT 41.3 % (36.0-48.0); HEMOGLOBIN 14.1 g/dL (12-16); IMMATURE GRANULOCYTES 0.1 % (0-5); LYMPHOCYTES 30.9 % (15-50); MCH 32.6 pg (26.0-34.0); MCHC 34.1 g/dL (31.0-37.0); MCV 95.6 fL (80.0-100.0); MONOCYTES 5.6 % (2-11); NEUTROPHILS 62.7 % (40-80); PLATELET COUNT 178 10x3/uL (130-400); RBC 4.32 10x6/uL (4.00-5.40); RDW 13.2 % (11.5-14.5); WBC 6.8 10x3/uL (4.8-10.8)
[2016-11-08 08:21] LABS: ANION GAP 10.4 mmol/L (8-16); CALCIUM 8.6 mg/dL (8.5-10.1); CARBON DIOXIDE 28.2 mmol/L (21.0-32.0); CREATININE - SERUM 1.3 mg/dL (0.6-1.3); POTASSIUM - SERUM 3.6 mmol/L (3.5-5.1)
--- NOTE | 2016-11-08 10:45 | NUR ---
1045 RECIEVED TO ROOM VIA STRETCHER FROM CHANNEL PROCESS PLANT OPERATOR WITH 6 FR EXOSEAL R/GROIN CDI NO BLEEDING NO HEMATOMA NOTED. PULSES PRESENT AND MARKED. CHEST PAIN IS DENIED VSS AT THIS TIME. INSTRUCTED PATIENT TO KEEP HEAD FLAT ON PILLOW WITH RLE STRAIGHT
--- NOTE | 2016-11-08 11:03 | NUR ---
6 FR EXOSEAL R/GROIN CDI NO BLEEDING NO HEMATOMA NOTED INSTRUCTED PATIENT TO KEEP HEAD FLAT ON PILLOW WITH RLE STRAIGHT
--- NOTE | 2016-11-08 11:38 | NUR ---
RESTING QUIETLY WITH NO DISTRESS. 6 FR EXOSEAL R/GROIN CDI NO BLEEDING NO HEMATOMA NOTED. FAMILY AT SIDE
--- NOTE | 2016-11-08 12:03 | NUR ---
NO CHANGE IN ASSESSMENT RESTING QUIETLY
--- NOTE | 2016-11-08 12:22 | NUR ---
6 FR EXOSEAL R/GROIN CDI NO BLEEDING NO HEMATOMA NOTED. VSS WITH CHEST PAIN DENIED
--- NOTE | 2016-11-08 12:47 | NUR ---
PATIENT COMPLAINS OF BACK PAIN AND REQUEST PAIN MEDICATION DR HIRSCH NOTIFIED WITH ORDERS RECIEVED FOR DILUADID 1 MG X ONE. MEDICATION GIVEN ORDERED
--- NOTE | 2016-11-08 13:08 | NUR ---
PATIENT SLEEPING QUIETLY NO DISTRESS NOTED VSS
--- NOTE | 2016-11-08 13:52 | OP ---
PATIENT NAME: BRENDA LUZ MEDICAL RECORD: [id number] :61 LOCATION:D.CAT ADMISSION DATE: SURGEON: LAURA HIRSCH MD DATE OF OPERATION: 11/08/2016 PROCEDURES: 1. PTCA, LAD. 2. Cutting balloon LAD. 3. Left heart catheterization. 4. Selective coronary angiography. 5. Left ventriculogram. INDICATION: Angina and coronary artery disease. PROCEDURE IN DETAIL: After informed consent was obtained and after a detailed explanation of risks, benefits as well as alternative therapies, the patient elected to proceed with angiogram and angioplasty. The right femoral area is prepped and draped in normal sterile fashion. The right femoral artery was cannulated via modified Seldinger technique with placement of 6-Somali sheath. All catheters exchanged through this sheath. FINDINGS: The left ventriculogram was performed in standard 30-degree AMANDA view, reveals good cardiac wall motion throughout all segments. Overall ejection fraction estimated at 60%. SELECTIVE CORONARY ANGIOGRAPHY: 1. Left main showed no significant angiographic disease. 2. Left anterior descending has previously placed stents. There is 80% in-stent restenosis in the mid vessel. 3. The left circumflex has moderate irregularities, but no flow-limiting stenosis. 4. The right coronary has previously placed stent. This is widely patent with no significant restenosis. No disease elsewise throughout the RCA or its branches. PTCA STENT OF THE LAD: There were already two stents in this area, we addressed it with a 3.5 balloon and then a 3.5 cutting balloon. Result was 0% residual stenosis. OVERALL IMPRESSION: Successful cutting balloon and percutaneous transluminal coronary angioplasty for in-stent restenosis of the left anterior descending going from 80% initial stenosis to 0% residual stenosis. TRANSINT:[id number] Voice Confirmation ID: [id number] DOCUMENT ID: [id number] LAURA HIRSCH MD at 1352 CC: [id number] DICTATION DATE: 11/08/16 1029 CAUSE ANALYST: 11/08/16 1154 [facility] [address] [id number]
--- NOTE | 2016-11-08 14:00 | NUR ---
PIV REMOVED WITH DRESSING APPLIED. 6 FR EXOSEAL R/GROIN CDI NO BLEEDING NO HEMATOMA NOTED. CHEST PAIN IS DENIED. PATIENT UP TO GET DRESSED FOR DISCHARGE HOME
--- NOTE | 2016-11-08 14:13 | NUR ---
DISCHARGE INSTRUCTIONS GONE OVER WITH PATIENT R/GROIN CDI NO BLEEDING NOTED. CHEST PAIN IS DENIED. LEFT VIA WC TO [facility] FOR TRANSPORT HOME
== END 2016-11-08 14:14 ==
LOC: D.CATH 07:44
PROVIDERS: Internal Medicine Interventional Cardiology
DX: I25.119 Atherosclerotic heart disease of native coronary artery with unspecified angina pectoris (principal); R00.2 Palpitations; I10 Essential (primary) hypertension; E78.5 Hyperlipidemia, unspecified; F17.200 Nicotine dependence, unspecified, uncomplicated; Z01.812 Encounter for preprocedural laboratory examination

== ENCOUNTER 2017-01-20 07:33 | Outpatient (CLI) | payer MEDICARE ==
[~2017-01-20] VITALS: Ht 167.6 cm; Wt 59.5 kg
--- NOTE | ~2017-01-20 | HEMODYNAMI ---
PATIENT:BRENDA LUZ MEDICAL RECORD: [id number] : 61 LOCATION:D.CAT ADMISSION DATE: 01/20/17 Generatedon:01/20/201712:08 Patient name: BRENDA LUZ Patient #: [id number] SSN: : 1965 Date of study: 01/20/2017 Page: Of Hemodynamic Procedure Report Patient Data Patient Demographics Procedure consent was obtained First Name: BRENDA Gender: Female Last Name: NATTY : 1965 [facility] Initial: D Age: 51 year(s) Patient #: [id number] Race: Additional ID: [id number] Contact details Address: [address] [place] [address] [place] State: [place] City: [place] Zip code: [address] Past Medical History History of disease Date Diagnosis Comments CAD Allergies Allergen Reaction Date Comments Reported Other allergy 04/21/2015 Morphine, PCN, Stadol Other allergy 04/26/2016 stadol,pcn,morphine Penicillins 11/08/2016 Morphine 11/08/2016 Other allergy 01/20/2017 morphine, pcn, stadol Admission Admission Data Admission Date: 01/20/2017 Admission Time: 7:33 Lab Results Lab Result Date: 01/20/2017 Lab Result Time: 7:55 Biochemistry Name Units Result Min Max BUN mg/dl 12 --(-*--)-- 7 18 Creatinine mg/dl 1.3 --(---*)-- 0.6 1.3 CBC Name Units Result Min Max Hematocrit % 44.6 --(*---)-- 42 54 Hemoglobin g/dl 15.3 --(-*--)-- 13.5 17.5 Procedure Procedure Types Cath Procedure Diagnostic Procedure LHC LHC w/Coronaries Miscellaneous Procedures Moderate Sedation up to 15 minutes Procedure Description Procedure Date Procedure Date: 01/20/2017 Procedure Start Time: 11:52 Procedure End Time: 12:06 Procedure Staff Name Function Jc Rice MD Performing Physician Claudia Quinones RT Scrub Christofer Sanchez RT Monitor Akil Hicks RN Monitor Procedure Data Cath Procedure Fluoroscopy Diagnostic fluoroscopy Total fluoroscopy Time: 2.3 time: 2.3 min min Diagnostic fluoroscopy Total fluoroscopy dose: dose: 151.08 mGy 151.08 mGy Contrast Material Contrast Material Type Amount (ml) Isovue 300 110 Entry Location Entry Primary Successful Side Size Upsize Upsize Entry Closure Succes sful Closure Location (Fr) 1 (Fr) 2 (Fr) Remarks Device Remarks Femoral Right 6 Fr Exoseal artery Short Estimated blood loss: 5 ml Diagnostic catheters Device Type Used For End Catheter Placement Diagnostic Infinity 5Fr Procedure Pigtail catheter Diagnostic Infinity 5Fr Procedure JL 4.0 catheter Procedure Complications No complications Procedure Medications Medication Administration Route Dosage Oxygen NC 2 l/min Heparin Flush Bag added to field 2 bags (1000units/500ml NS) 0.9% NaCl I.V. 100 ml/hr Fentanyl I.V. 100 mcg Versed I.V. 2 mg Fentanyl I.V. 100 mcg Versed I.V. 2 mg Fentanyl I.V. 50 mcg Hemodynamics Rest HGB: 15.3 (g/dl) Heart Rate: 81 (bpm) Snapshots Pre Cath Intra NCS Post Cath Vital Signs Time Heart Resp SPO2 etCO2 NIBP (mmHg) Rhythm Pain Sedation Rate (ipm) (%) (mmHg) Status Level (bpm) 11:38:51 76 18 98 0 128/80(112) NSR 0 (11) 10(A) , No pain 11:43:38 77 18 98 0 133/78(116) NSR 0 (11) 10(A) , No pain 11:47:50 79 16 88 0 119/76(98) NSR 0 (11) 10(A) , No pain 11:52:01 75 16 98 0 104/64(90) NSR 0 (11) 9(A) , No pain 11:56:09 82 16 87 0 110/66(91) NSR 0 (11) 9(A) , No pain 12:00:15 82 19 97 0 105/70(91) NSR 0 (11) 9(A) , No pain 12:04:25 84 8 97 0 102/67(85) NSR 0 (11) 9(A) , No pain Medications Time Medication Route Dose Verified Delivered Reason Notes Effec tiveness by by 11:44:18 Oxygen NC 2 Jc Akil Per l/min Krystal Hicks RN physician 11:44:26 Heparin Flush added 2 Jc Akil used for Bag to bags Krystal Hicks crawler tractor operator (1000units/500ml field NS) 11:44:35 0.9% NaCl I.V. 100 Jc Rebollary Per ml/hr Krystal Hicks RN physician 11:46:57 Fentanyl I.V. 100 Jc Akil for mcg Krystal Hicks RN sedation 11:47:02 Versed I.V. 2 mg Jc Akil for Krystal Hicks RN sedation 11:49:22 Fentanyl I.V. 100 Jc Akil for mcg Krystal Hicks RN sedation 11:49:27 Versed I.V. 2 mg Jc Akil for Krystal Hicks RN sedation 11:53:43 Fentanyl I.V. 50 Jc Akil for courtney Hicks RN sedation Procedure Log Time Note 11:17:06 Informed consent obtained and on chart 11:17:11 Diagnostic Cath Status : Elective 11:18:25 Christofer Sanchez RT(R) sent for patient. Start room use. 11:18:27 Time tracking: Regular hours 11:18:32 Plan of Care:Hemodynamics will remain stable., Cardiac rhythm will remain stable., Comfort level will be maintained., Respiratory function will remain adequate., Patient/ family verbilizes understanding of procedure., Procedure tolerated without complication., Recovers from procedure without complications.. 11:30:15 Patient received from Pre/Post Procedure Room to [facility] 3 Alert and oriented. Tansferred to table in Supine position. 11:30:17 Warm blankets applied, and terese hugger turned on for patient comfort. 11:30:17 Correct patient and procedure confirmed by team. 11:30:18 ECG and BP/O2 sat monitors applied to patient. 11:37:48 Vital chart was started 11:37:49 Full Disclosure recording started 11:43:08 Baseline sample Acquired. 11:43:10 Rhythm: sinus rhythm 11:43:22 H&P Date Dictated: 01/02/2017 Within 30 days and on chart., H&P Addendum completed by physician on day of procedure. (MUST COMPLETE FOR ALL OUTPATIENTS). 11:43:23 Pre-procedure instructions explained to patient. 11:43:23 Pre-op teaching completed and patient verbalized understanding. 11:43:24 Family in patients room. 11:43:25 Patient NPO since Midnight. 11:43:38 Patient allergic to Other allergymorphine, pcn, stadol 11:43:40 Is the patient allergic to Iodine/contrast media? No. 11:43:41 Is patient on blood thinner?Yes 11:43:43 ACC The patient was administered the following blood thiners within the last 24 hours: ACCPlavix 11:43:44 Patient diabetic? No. 11:43:47 Previous problem with sedation/anesthesia? No ? 11:43:47 Snore? Yes 11:44:05 Patient not . Patient has had hysterectomy. 11:44:06 Sleep apnea? No 11:44:07 Deviated septum? No 11:44:08 Opens mouth fully? Yes 11:44:09 Sticks out tongue? Yes 11:44:10 Airway obstruction? No ? 11:44:12 Dentures? No ? 11:44:14 Pre procedure: right dorsailis pedis pulse 2+ Normal; easily identifiable; not easily obliterated 11:44:16 Patient pain scale 0/10 ?. 11:44:18 Oxygen 2 l/min NC was administered by Akil Hicks RN; Per physician; 11:44:23 Patient pain scale 3/10 Left arm paain. 11:44:26 Heparin Flush Bag (1000units/500ml NS) 2 bags added to field was administered by Akil Hicks RN; used for procedure; 11:44:33 IV patent on arrival in left wrist with 0.9% NaCl at O. 11:44:35 0.9% NaCl 100 ml/hr I.V. was administered by Akil Hicks RN; Per physician; 11:45:10 Lab results completed and on chart. 11:45:13 Right groin area was prepped with chlora-prep and draped in sterile fashion 11:45:14 Alarms reviewed by R. N. 11:45:14 Sharps counted by scrub and verified by R.N. 11:45:16 Use device set Femoral Dx 11:45:18 Tegaderm 4 x 4 opened to sterile field. 11:45:18 Acist Manifold opened to sterile field. 11:45:18 Acist Hand Control opened to sterile field. 11:45:19 Acist Syringe opened to sterile field. 11:45:20 Bag Decanter opened to sterile field. 11:45:20 Medline Cath Pack opened to sterile field. 11:45:21 Terumo 5Fr [place] Sheath opened to sterile field. 11:45:22 St Lamine 260cm J .035 wire opened to sterile field. 11:46:10 Lab Result : Hemoglobin 15.3 g/dl 11:46:10 Lab Result : Creatinine 1.3 mg/dl 11:46:10 Lab Result : BUN 12 mg/dl 11:46:10 Lab Result : Hematocrit 44.6 % 11:46:15 Physician arrived 11:46:15 --------ALL STOP TIME OUT------ 11:46:15 Final Timeout: patient, procedure, and site verified with staff and physician. All members of the team are in agreement. 11:46:17 Right groin site verified by team. 11:46:19 Physical assessment completed. ASA score P 2 - A patient with mild systemic disease as per Jc Rice MD. 11:46:21 Sedation plan: IV Moderate Sedation Versed, Fentanyl 11:46:57 Fentanyl 100 mcg I.V. was administered by Akil Hicks RN; for sedation; 11:47:02 Versed 2 mg I.V. was administered by Akil Hicks RN; for sedation; 11:49:22 Fentanyl 100 mcg I.V. was administered by Akil Hicks RN; for sedation; 11:49:27 Versed 2 mg I.V. was administered by Akil Hicks RN; for sedation; 11:49:49 Terumo 6Fr [place] Sheath opened to sterile field. 11:49:54 Procedure started. 11:49:56 Zero performed for pressure channel P1 11:50:36 PERCUTANEOUS ENTRY 19GA needle opened to sterile field. 11:52:11 Local anesthetic to right femoral artery with Lidocaine 2% by Jc Rice MD.INITIAL ACCESS ONLY 11:52:17 A 6 Fr Short sheath was inserted into the Right Femoral artery 11:52:30 A Diagnostic Infinity 5Fr Pigtail catheter was advanced over the wire and used for Procedure. 11:52:36 LV gram done using AMANDA 11:52:40 Injector settings: Ml/sec: 10, Volume: 20, 11:52:50 EF : 50 % 11:53:00 Catheter removed. 11:53:07 A Diagnostic Infinity 5Fr JL 4.0 catheter was advanced over the wire and used for Procedure. 11:53:35 LCA angiography performed. 11:53:43 Fentanyl 50 mcg I.V. was administered by Akil Hicks RN; for sedation; 11:54:22 Medtronic Launcher 6Fr HS II guide catheter opened to sterile field. 11:54:28 Catheter removed. 11:54:40 6 Fr HS II guide catheter was inserted over the wire 11:55:44 RCA angiography performed. 11:56:41 Medtronic Launcher 6Fr HS I guide catheter opened to sterile field. 11:56:44 Catheter removed. 11:56:55 6 Fr HS 1 guide catheter was inserted over the wire 11:58:39 RCA angiography performed. 11:58:45 Cordis 6Fr Exoseal opened to sterile field. 11:58:52 Sheath removed intact; hemostasis achieved with Exoseal to the Right Femoral artery. 11:58:53 Procedure ended.(Physican Out) 12:00:54 Fluoroscopy time 02.30 minutes. 12:03:54 Fluoroscopy dose: 151.08 mGy 12:03:54 Flurop Dose total: 151.08 12:03:59 Contrast amount:Isovue 300 110ml. 12:04:00 Sharps counted by scrub and verified by R.N. 12:04:01 Insertion/operative site no bleeding no hematoma. 12:04:03 Post-op/insertion site Right Femoral artery dressed using a 4 x 4 and Tegaderm. 12:04:07 Post right femoral artery:stable, soft, clean and dry 12:04:08 Post Procedure Pulses reassessed and unchanged 12:04:10 Post-procedure physical assessment completed. ASA score P 2 - A patient with mild systemic disease as per Jc Rice MD. 12:04:12 Post procedure rhythm: unchanged. 12:04:14 Estimated blood loss: 5 ml 12:04:15 Post procedure instruction explained to patient.Patient verbalizes understanding. 12:04:15 Patient needs reinforcement of post procedure teaching. 12:04:55 Procedure type changed to Cath procedure, Diagnostic procedure, LHC, LHC w/Coronaries, Miscellaneous Procedures, Moderate Sedation up to 15 minutes 12:05:19 Procedure and supply charges have been captured, reviewed, submitted and are correct. 12:05:21 Procedure Complication : No complications 12:05:22 Vital chart was stopped 12:05:56 See physician's report for complete and final results. 12:05:57 Report given to Pre/Post Procedure Room. 12:05:59 Patient transfered to Pre/Post Procedure Room with Stretcher. 12:06:02 Procedure ended. 12:06:02 Full Disclosure recording stopped 12:06:11 End room use (Document Last) Device Usage Item Name Manufacture Quantity Catalog Hospital Part Current Minimal Lot# / Number Charge Number Stock Stock Serial# Code Tegaderm 4 x 3M 1 [id number] [id number] 074723 394241 5 4 Acist Acist 1 39646 285585 803181 000277 5 Manifold Medical Systems [place] Acist Hand Acist 1 51531 350917 703141 349352 5 Control Medical Systems [place] Acist Acist 1 86875 336578 743315 104079 20 Syringe Medical Systems Inc Bag Decanter Microtek 1 2002S 332607 07888 720241 5 Medical Inc. Medline Cath Cardinal 1 [id number] 290622 80566 450917 5 Pack Health Terumo 5Fr Terumo 1 [id number] 627358 055717 032935 [address] Lamine St Lamine 1 660523 794699 494861 559594 30 260cm J .035 wire Terumo 6Fr Terumo 1 [id number] 389478 395107 992058 40 [place] Sheath PERCUTANEOUS [employer] 1 Y93990 535796 620806 5 ENTRY 19GA needle Diagnostic Cardinal 1 [id number] 245167 332325 459957 5 Infinity 5Fr Health Pigtail catheter Diagnostic Cardinal 1 [id number] 021652 322999 799916 10 Infinity 5Fr Health JL 4.0 catheter Medtronic Medtronic 1 [id number] 450756 94209 386272 1 Launcher 6Fr HS II guide catheter Medtronic Medtronic 1 [id number] 943913 85151 038273 1 Launcher 6Fr HS I guide catheter Cordis 6Fr Cardinal 1 EX600 946653 540763 334407 10 Booklr Signature Audit [place] Stage Time Signature Unsigned Intra-Procedure 01/20/2017 Christofer Sanchez 12:08:10 PM RT(R) Signatures Monitor : Christofer Sanchez RT Signature : Date : Time : Monitor : Akil Hicks Signature : RN Date : Time : [place] [address] [place] [address]
[~2017-01-20 07:33] MED LIST changes: +NAC600 MG PO
[2017-01-20] MEDS ORDERED: FOLIC ACID1 MG PO (07:47)
[2017-01-20 08:03] VITALS: BP 127/80; Ht 167.6 cm; Wt 59.5 kg
[2017-01-20 08:15] LABS: ANION GAP 11.5 mmol/L (8-16); CALCIUM 8.9 mg/dL (8.5-10.1); CREATININE - SERUM 1.3 mg/dL (0.6-1.3); POTASSIUM - SERUM 3.5 mmol/L (3.5-5.1)
[2017-01-20 09:19] LABS: BASOPHILS 0.1 % (0-2); EOSINOPHILS 0.3 % (0-7); HEMATOCRIT 44.6 % (36.0-48.0); HEMOGLOBIN 15.3 g/dL (12-16); IMMATURE GRANULOCYTES 0.1 % (0-5); LYMPHOCYTES 27.8 % (15-50); MCH 33.4 pg (26.0-34.0); MCHC 34.3 g/dL (31.0-37.0); MCV 97.4 fL (80.0-100.0); MEAN PLATELET VOLUME 10.7 fL (7.4-10.4); MONOCYTES 4.5 % (2-11); NEUTROPHILS 67.2 % (40-80); RBC 4.58 10x6/uL (4.00-5.40); RDW 12.6 % (11.5-14.5); WBC 7.5 10x3/uL (4.8-10.8)
[2017-01-20 09:20] LABS: PLATELET COUNT 214 10x3/uL (130-400)
--- NOTE | 2017-01-20 10:35 | NUR ---
1035 DILAUDID 1 MG VGIVEN IV PER ORDERS, ASKED PT TO RATE PAIN ON 1-10 SCALE AND PT STATES "HONESTLY, IT IS A 27. I LIVE THERE, IN SEVERE PAIN ALL THE TIME."
--- NOTE | 2017-01-20 10:42 | NUR ---
1030 PT STATES HER CHRONIC BACK PAIN IS A 10/10, REQUESTS PAIN MEDICATION. STATES SHE DOES NOT WANT PAIN MEDICATION BY MOUTH 'IT IS A WASTE FOR ME, I WANT THE IV MEDICATION". STATES TOOK HER HOME PAIN MED OF [place] AT [address] HIRSCH NOTIFIED AND ORDER FOR DILAUDID IV RECEIVED.
--- NOTE | 2017-01-20 10:56 | NUR ---
1055 PAIN REASSESSMENT. PT RATES PAIN A 5-6/10. STATES IS TOLERABLE AND STATES "NO MATTER WHAT I GET, ITS NEVER GOING TO BE GONE COMPLETELY." IS SITTING UP IN BED, USING PHONE. DENIES ANY OTHER C/O AT THIS TIME. FAMILY AT BEDSIDE AND CALL LIGHT IN REACH.
--- NOTE | 2017-01-20 12:30 | NUR ---
1220 RECEIVED PT FROM [facility] COMMISSIONER. PT IS DROWSY. DENIES ANY C/O CHEST PAIN OR NAUSEA. EXOSEAL TO RIGHT GROIN IS CDI, AREA IS SOFT AND NONTENDER. PEDAL PULSES PALPABLE. FOOT WARM, CAP REFILL IS BRISK. IV PATENT AND INFUSING PER ORDERS. NSR, RATE OF 77. CALL LIGHT IN REACH. PT INSTRUCTED TO KEEP RIGHT LEG STRAIGHT AND HEAD TO PILLOW AND VERBALIZES UNDERSTANDING.
--- NOTE | 2017-01-20 12:34 | NUR ---
1235 DR HIRCSH HAS ROUNDED ON PT. DRESSING TO RIGHT GROIN IS CDI, AREA IS SOFT AND NONTENDER. PEDAL PULSES PALPABLE. DENIES ANY C/O CHEST PAIN. FRIEND AT BEDSIDE, CALL LIGHT IN REACH. VSS.
--- NOTE | 2017-01-20 13:00 | NUR ---
1300 KEELEY PO FLUIDS WITH NO C/O NAUSEA. DRESSING CDI RIGHT GROIN, PEDAL PULSES PALPABLE. CALL LIGHT IN REACH.
--- NOTE | 2017-01-20 13:30 | NUR ---
1330 PT DENIES ANY C/O. VSS, DRESSING RIGHT GROIN IS CDI, PEDAL PULSES PALPABLE. CALL LIGHT IN REACH.
--- NOTE | 2017-01-20 13:58 | NUR ---
1350 VANCE OFFERED, PT REFUESES. IS KEELEY PO FLUIDS WITH NO C/O NAUSEA. DRESSING R GROIN IS CDI. HOB ELEVATED. IV DC'D WITH CATH INTACT.
--- NOTE | 2017-01-20 14:00 | NUR ---
ESCORTED PT TO THE BATHROOM, PT VOIDED QS. DC INSTRUCTIONS HAVE BEEN REVIEWED AND PT VERBALIZES UNDERSTANDING. PT DENIES ANY C/O UPON DC. PT ESCORTED TO PRIVATE AUTO VIA WC BY NURSE WTIH FRIEND DRIVING HER HOME. PT HAS DC INSTRUCTIONS AND ALL PERSONAL BELONGINGS FROM ROOM.
--- NOTE | 2017-01-24 14:14 | OP ---
PATIENT NAME: BRENDA LUZ MEDICAL RECORD: [id number] :61 LOCATION:D.CAT ADMISSION DATE: SURGEON: LAURA HIRSCH MD DATE OF OPERATION: 01/20/2017 PROCEDURES: 1. Left heart catheterization. 2. Selective coronary angiography. 3. Left ventriculogram. PROCEDURE IN DETAIL: After informed consent was obtained and after a detailed explanation of risks, benefits as well as alternative therapies, the patient elected to proceed with angiogram and angioplasty. The right femoral area was prepped and draped in normal sterile fashion. Right femoral artery was cannulated via modified Seldinger technique with placement of 5-Citizen Of [place] sheath. All catheters exchanged through this sheath. FINDINGS: The left ventriculogram was performed in the standard 30-degree AMANDA view reveals preserved cardiac wall motion, ejection fraction 50%. SELECTIVE CORONARY ANGIOGRAPHY: 1. Left main showed no significant angiographic disease. 2. Left anterior descending has multiple previously placed stents. There is a greater than 70% in-stent restenosis. 3. Left circumflex has mild irregularities, no flow-limiting stenosis. Previously placed stent is widely patent. 4. The right coronary has previously placed stent and the ostium has greater than 70% in-stent restenosis. OVERALL IMPRESSION: Aggressive restenosis of the LAD and RCA, evaluate for coronary bypass graft surgery. TRANSINT:[id number] Voice Confirmation ID: [id number] DOCUMENT ID: [id number] LAURA HIRSCH MD at 1414 CC: [id number] DICTATION DATE: 01/20/17 1205 STUDENT SUPPORT SERVICES DIRECTOR: 01/20/17 1253 DEP CLI 01/20/[address] [address]
== END 2017-01-20 14:00 | disposition home or self-care (01) ==
LOC: D.CATH 07:33
PROVIDERS: Internal Medicine Interventional Cardiology
DX: I25.119 Atherosclerotic heart disease of native coronary artery with unspecified angina pectoris (principal); R00.2 Palpitations; R06.09 Other forms of dyspnea; F17.200 Nicotine dependence, unspecified, uncomplicated; E78.5 Hyperlipidemia, unspecified; Z01.812 Encounter for preprocedural laboratory examination

== ENCOUNTER 2017-01-24 08:35 | Inpatient (IN) | payer MEDICARE ==
[~2017-01-24] VITALS: Ht 167.6 cm; Wt 70.0 kg
[2017-01-24] VITALS (17 sets, daily range): BP systolic 111–136; BP diastolic 65–98; BMI 21.1
[~2017-01-24 08:35] MED LIST changes: +FOLIC ACID1 MG PO
[2017-01-24 09:49] LABS: HEMOGLOBIN 13.6 g/dL (12-16); MCH 32.9 pg (26.0-34.0); MCV 96.6 fL (80.0-100.0); MEAN PLATELET VOLUME 9.9 fL (7.4-10.4); RBC 4.14 10x6/uL (4.00-5.40); RDW 12.6 % (11.5-14.5); WBC 7.2 10x3/uL (4.8-10.8)
[2017-01-24 09:58] LABS: APTT 28.9 SECONDS (22.8-39.4); INR 0.95 (0.85-1.17); PROTIME 12.5 SECONDS (11.6-15.0)
[2017-01-24 10:00] LABS: ANION GAP 11.5 mmol/L (8-16); CALCIUM 8.6 mg/dL (8.5-10.1); CARBON DIOXIDE 28.9 mmol/L (21.0-32.0); CREATININE - SERUM 1.1 mg/dL (0.6-1.3); POTASSIUM - SERUM 3.4 mmol/L (3.5-5.1)
[2017-01-24] MEDS ORDERED: VITAMIN D250000 UNIT PO (10:23)
[2017-01-24] MEDS ORDERED: ZOFRAN ODT4 MG/UDTAB PO (10:24)
--- NOTE | 2017-01-24 16:22 | HP ---
PATIENT: BRENDA LUZ MEDICAL RECORD: [id number] ACCOUNT: [id number] LOCATION:[facility].CV02 : 61 ADMISSION DATE: 01/24/17 HISTORY AND PHYSICAL EXAMINATION NameBRENDA LUZ (51yo, F) ID# [id number]. Date/Time01/21/2017 03:76EAAFO[address] Dept.NP_[facility] ClinicProviderEDBARI LUIS MDInsuranceMed Primary: [place] Insurance # : [id number] Referring Provider Name : PEE SMITH Employer Name : [employer] Secondary: [place]) Insurance # : [id number] Employer Name : [id number] [employer] [employer] [address] Prescription: ESI1 - Member is eligible. Prescription: [facility] MEDICAID ADMINISTRATION - Member is eligible. Chief Complaint Coronary artery disease eval for CABG Patient's Care Team Referring Provider (): PEE SMITH: [address] [place] [address] [place] [phone], , Referring Provider: YO FREDERICK JR MD: [address] [place] [address], , Patient's Pharmacies [id number] ([place]): [address] [facility] [address], , Vitals BP:120/80 sitting R arm 01/21/2017 03:41 pmBP Cuff Size:adult 01/21/2017 03:41 pmHR:88,reg 01/21/2017 03:41 pmHt:5 ft 6 in 01/21/2017 03:40 pmWt:131 lbs 01/21/2017 03:42 pmNotes:3 week hx of chest/arm/jaw pain 01/21/2017 03:42 pmBMI:21.1 01/21/2017 03:42 pmAllergies Reviewed Allergies MORPHINEPENICILLINSSTADOLMedications Reviewed Medications ALPRAZolam 0.5 mg tablet Take 1 tablet(s) 3 times a day by oral route.01/21/17 [facility],delayed release Take 1 tablet(s) every day by oral route.01/21/17 [facility] Huybisoprolol 2.5 mg-hydrochlorothiazide 6.25 mg akzllq27/06/17 filledMEDCOclopidogrel 75 mg qyvuvt62/06/17 filledMEDCOestradiol 0.1 mg/24 hr semiweekly transdermal patch01/18/17 filledMEDCOfolic acid01/21/17 [facility] HuyHYDROcodone 10 mg-acetaminophen 325 mg tablet start [facility] HuyNucynta 100 mg jiexau37/11/17 filledMEDCOsimvastatin 20 mg dvntia03/06/17 filledMEDCOtriamcinolone acetonide 0.1 % topical cream02/14/16 filledMEDCOProblems Reviewed Problems Chronic kidney disease stage 3 - Onset: 01/21/2017 Chronic pain syndrome - Onset: 01/21/2017 Coronary arteriosclerosis - Onset: 01/21/2017 Family History Discussed Family History Father- Diabetes mellitus - Coronary atherosclerosis - Stented artery - Coronary HISTORY AND PHYSICAL [id number] BRENDA LUZ artery bypass graft - Kidney disease ( age: 67)Mother- Cerebrovascular accidentSocial History Discussed Social History Cardiology Family history of heart disease?: Y Smoking Status: Current every day smoker Smoker (1/2 PPD) High Cholesterol: Y High blood pressure: Y Overweight: Y Diabetes: Y Alcohol intake: None Occupation: disabled Surgical History Reviewed Surgical History Angioplasty cardiac cath PTCA/stenting 06/25/12, 10/14/12, 04/15/14, 04/21/15, 11/08/16 breast 2009, gallbladder, hysterectomy, botello glands, 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 HPI Coronary Artery Disease F/U Reported by patient. Severity: chest discomfort with household activities/yard work Context: smoker Associated Symptoms: chest pain with exertion; neck pain with exertion; left arm pain with exertion; dyspnea with exertion in-stent restenosis coronary artery ROS Patient reports exercise intolerance but reports no fever, no night sweats, no significant weight gain, and no significant weight loss. She reports chest pain on exertion, arm pain on exertion, and shortness of breath when walking but reports no shortness of breath when lying down, no palpitations, and no known heart murmur. She HISTORY AND PHYSICAL [id number] BRENDA LUZ reports shortness of breath but reports no cough, no wheezing, and no coughing up blood. She reports muscle aches, muscle weakness, and back pain (severe) but reports no arthralgias/joint pain and no swelling in the extremities. She reports no dry eyes, no irritation, and no vision change. She reports no difficulty hearing and no ear pain. She reports no frequent nosebleeds an d no nose/sinus problems. She reports no sore throat, no bleeding gums, no snoring, no dry mouth, no mouth ulcers, no oral abnormalities, and no teeth problems. She reports no jugular vein distension and no swollen glands. She reports no abdominal pain, n o vomiting, normal appetite, no diarrhea, not vomiting blood, no nausea, and no constipation. She reports no incontinence, no difficulty urinating, no hematuria, and no increased frequency. She reports no abnormal mole, no jaundice, and no rashes. She repo r ts no loss of consciousness, no weakness, no numbness, no seizures, no dizziness, and no headaches. She reports no depression, no sleep disturbances, feeling safe in relationship, and no alcohol abuse. She reports no fatigue. She reports no swollen glands and no bruising. She reports no runny nose, no sinus pressure, no itching, no hives, and no frequent sneezing. ROS as noted in the HPI Physical Exam Patient is a 51-year-old female. Constitutional: General Appearance healthy-appearing and thin. Level of Distress chronically ill. Ambulation limited ambulation. Cardiovascular: Apical Impulse not displaced or no thrill. Heart Auscultation normal s1 and s2; no murmurs, rubs, or gallops; and RRR. Arterial Pulses no abdominal aorta bruits, femoral bruits, or popliteal bruits and 2+ bilateral, carotid 2+ bilateral, femoral 2+ bilateral, popliteal 2+ bilateral, and dorsalis pedis 2+ bilateral. Edema no edema or varicosities. Lungs: Repiratory Effort no dyspnea. Percussion no dullness or flatness and hyperresonance . Auscultation no wheezing, rhonchi, or rales / crackles and breathing sounds normal, good air movement, and CTA except as noted. Abdomen: Bowl Sounds normal. Inspection and Palpation no ten derness, guarding, masses, or rebound tenderness and soft and non-distended. Liver non-tender and no hepatomegaly. Spleen non-tender and no splenomegaly. Hernia none palpable. Musculoskeletal System: Gait And Stance irregular gait and stance. Digits and Nails normal nails and no cyanosis. Joints, Bones, and Muscles limited ROM. Neurologic: Cranial Nerves grossly intact. Reflexes DTRs 2+ bilaterally throughout. Sensation grossly intact. Lymph Nodes: Lymph Nodes no cervical LAD, supraclavicular LAD, axillary LAD, or inguinal LAD. Eyes: Lids and Conjunctivae no discharge or pallor and non-injected. Pupils PERRLA. Cornea grossly intact. EOM EOMI. Lens clear. Sclera non-icteric. Neck: Neck no masses, enlarged lymph nodes, or carotid bruits and supple and trachea midline. Thyroid no enlargement or nodules and non-tender. Skin: Inspection and Palpation no rash, lesions, ulcers, jaundice, or abnormal nevi. Assessment / Plan severe occlusive coronary disease with in-stent restenosis HISTORY AND PHYSICAL [id number] BRENDA LUZ 1. Coronary arteriosclerosis I25.118: Atherosclerotic heart disease of [place] coronary artery with other forms of angina pectoris 2. Chronic pain syndrome G89.4: Chronic pain syndrome 3. Chronic kidney disease stage 3 N18.3: Chronic kidney disease, stage 3 (moderate) Discussion Notes severe in-stent restenosis in 6 weeks. I have discussed her disease process with her and her in detail as well as the alternative of treatment. We discussed coronary artery bypass including the expected benefits and risks which include bleeding, infection, stroke, , and the imponderables. We also discussed chronic pain syndrome and pain postoperatively. pain is difficult to control postoperatively when she has used significant pain medications preo perative. She understands all of the above and wishes to proceed with planned surgery She will need a heparin bridge to surgery due to Plavix and severe in-stent restenosis. 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
--- NOTE | 2017-01-24 17:40 | NUR ---
0845-ADMITTED TO CV2-L PERIPHERAL IV WITH 20G STARTED -LAB DRAWN - ORDERED AND SITE SALINE LOCKED-NOTED SKIN TO BACK-SHOWN TO Gerson CORTEZ-Jeff GROIN SITE SOFT TO TOUCH-NO HEMATOMA 6195-TYX-ZNSNVYFT-HEP 2000UNITS IV PUSH AND HEP GTT 800UNIS/H STARTED IN L IV SITE 1330-NO CHANGE TO SKIN ON BACK-PT STATES FROM HEATING PAD-REQUIRES CHRONIC-FOR SEVERE BACK PAIN-NYCUNTA TABLETS PT OWN SUPPLY SENT TO PHARMACY-31 TABS-FOR BAR CODING 1600-PTT DRAWN [id number] FOR 30MIN- 1715-HEPARIN INFUSING AT 700UNITS /H PT AMBULATING AT [facility]
--- NOTE | 2017-01-24 18:35 | NUR ---
1800-PT CALLED NURSE STATED NTG OINT CAUSING PALPITATIONS-INSISTED TO BE REMOVED-WOULD NOT ACCEPT PURPOSE OF NTG OINT TO DILATE ARTERIES TO HEART RESPIRATORY THERAPY REVIEWED INTUBATION AND EXTUBATION PROCESS WITH PT-PT EXPRESSING STRONG APREHENSION REGARDING TUBES IN MOUTH- REASSURED PT WILL NOT BE ALONE DURING THIS TIME.-PT RECALLED TIME WHEN OWN FATHER REQUIRED THIS SURGERY AND HAD NO MEMORY OF ET TUBE AND OGT- 1830-FURTHER TEACHING AND ENCOURAGEMENT BY HEART TEAM NURSE FOR BEST COMPLIANCE FOR BEST RESULTS
--- NOTE | 2017-01-24 19:00 | NUR ---
SHIFT ASSESSMENT COMPLETE, PATIENT SITTING UP IN BED, A&O X4. DENIES PAIN AT THIS TIME. NSR ON MONITOR WITH RATE OF 65. BP STABLE. ROOM AIR WITH O2 SAT 95%. RR EVEN AND NON-LABORED, DENIES SOB. BOWEL SOUNDS ACTIVE X4. GETS UP TO BATHROOM WHEN NEEDING TO VOID. AMBULATES INDEPENDENTLY, INSTRUCTED TO CALL NURSE FOR HELP AMBULATING. REPORTS UNDERSTANDING. SCD'S ON, PERIPHERAL PULSES +2, BILATERAL. R AC PIV INFUSING HEPARIN. SEE FLOWSHEET. LOWER/MID BACK HAS BRUISES/CAPPS, PATIENT REPORTS FROM CHRONIC USE OF HEATING PAD FOR BACK. ALSO HAD PREVIOUS STENT PLACEMENT FRIDAY. ENTERED R GROIN, SITE IS WNL AND WITHOUT HEMATOMA FORMATION. PATIENT STATES SHE'S ANXIOUS ABOUT UPCOMING CABG FRIDAY, SPOKE AT LENGTH WITH HER AND STATES SHE HAS A BETTER FEELING ABOUT IT. VSS. CL IN REACH. WILL MONITOR.
--- NOTE | 2017-01-24 20:00 | NUR ---
DAUGHTER HERE FOR VISITATION. QUESTIONS ANSWERED.
--- NOTE | 2017-01-24 20:30 | NUR ---
NIGHT MEDS GIVEN, DENIES PAIN AT THIS TIME.
--- NOTE | 2017-01-24 21:30 | NUR ---
LAB AT BEDSIDE TO DRAW PTT.
--- NOTE | 2017-01-24 22:00 | NUR ---
EKG COMPLETE PER RT, PLACED ON CHART.
--- NOTE | 2017-01-24 22:31 | NUR ---
PTT LAB RECEIVED, 71.7, REQUIRES NO CHANGE.
--- NOTE | 2017-01-24 23:00 | NUR ---
REASSESSMENT COMPLETE, NO ACUTE CHANGES. VSS. DENIES NEED AT THIS TIME. CL IN REACH.
[2017-01-25] VITALS (24 sets, daily range): BP systolic 100–128; BP diastolic 40–83
--- NOTE | 2017-01-25 01:00 | NUR ---
RESTING WITH EYES CLOSED. VSS.
--- NOTE | 2017-01-25 03:00 | NUR ---
REASSESSMENT COMPLETE, NO CHANGE. VSS.
--- NOTE | 2017-01-25 03:45 | NUR ---
PATIENT REFUSING NITRO TREATMENT. EDUCATION TAUGHT, PATIENT VERBALIZES UNDERSTANDING AND KNOWS SHE NEEDS TO TAKE IT, BUT STATES "IT CAUSES PALPATATIONS, AND MAKES ME FEEL LIKE I DID WHEN I FLATLINED FOR 9 MINUTES". VSS, WILL MONITOR.
[2017-01-25 05:14] LABS: HEMATOCRIT 39.6 % (36.0-48.0); HEMOGLOBIN 13.3 g/dL (12-16); MCH 32.4 pg (26.0-34.0); MCHC 33.6 g/dL (31.0-37.0); MCV 96.6 fL (80.0-100.0); MEAN PLATELET VOLUME 9.8 fL (7.4-10.4); RBC 4.1 10x6/uL (4.00-5.40); RDW 12.8 % (11.5-14.5); WBC 6.5 10x3/uL (4.8-10.8)
--- NOTE | 2017-01-25 05:31 | NUR ---
PTT REVEIWED, REQUIRES NO CHANGE. WILL CONTINUE @ 700 U/HR
--- NOTE | 2017-01-25 08:00 | NUR ---
PATIENT STATES SHE IS A LITTLE NAUSEATED AND REQUESTING SOMETHING FOR IT. ZOFRAN GIVEN PO PER ORDER.
--- NOTE | 2017-01-25 08:57 | NUR ---
PATIENT STATES HER BACK IS HURTING AND IS REQUESTING PAIN MED. PATIENT STATES PAIN IS 27 ON PAIN SCALE OF 1-10. PATIENTS OWN PAIN MED GIVEN PER MD ORDER.
--- NOTE | 2017-01-25 09:45 | NUR ---
DR. LUIS IN TO SEE PATIENT.
--- NOTE | 2017-01-25 09:55 | NUR ---
DR. LUIS IN TO SEE PATIENT.
[2017-01-25 12:10] LABS: HEPATITIS C ANTIBODY <0.1 (0.0-0.9)
--- NOTE | 2017-01-25 12:48 | NUR ---
PTT LAB RESULTS IS 74.1 NO CHANGES IN HEPARIN WILL REPEAT PTT AT SPECIFIED TIME.
--- NOTE | 2017-01-25 13:12 | NUR ---
PATIENT SITTING UP IN BED PLAYING GAMES ON PHONE. PATIENT DENIES ANY NEEDS AT THIS TIME. CALL LIGHT WITHIN REACH, BED IN LOW POSITION.
--- NOTE | 2017-01-25 14:42 | NUR ---
PATIENT IS COMPLAINING OF PAIN IN BACK AND REQUESTING PAIN MED AT THIS TIME. PAIN MED GIVEN PER ORDERS.
--- NOTE | 2017-01-25 15:16 | NUR ---
PATIENT REFUSES NTG PATCH. STATES IT MAKES HER HEART RACE AND SHE WILL LET THE NURSES KNOW IF SHE STARTS TO HAVE PAIN.
--- NOTE | 2017-01-25 17:40 | NUR ---
PATIENT RESTING QUIETLY AT THIS TIME. CALL LIGHT WITHIN REACH, BED IN LOW POSITION.
--- NOTE | 2017-01-25 19:00 | NUR ---
SHIFT ASSESSMENT COMPLETE, PATIENT LAYING IN BED PLAYING ON HER PHONE. STATES SHE HAS HAD A GOOD DAY. DENIES PAIN AT THIS TIME. S1S2, NSR ON MONITOR WITH HR OF 60. RR EVEN AND NON LABORED. O2 SAT 95% ON ROOM AIR. BOWEL SOUNDS ACTIVE. DENIES DIFFICULTY VOIDING. PERIPHERAL PULSES +2. LAC PIV INFUSING HEPARIN @ 700U/HR. SITE WITHOUT SWELLING/REDNESS. PATIENT USING HEATING PAD FOR BACK PAIN. COKE GIVEN PER REQUESTS. DENIES FURTHER NEED. CL IN REACH.
--- NOTE | 2017-01-25 19:45 | NUR ---
ASSISSTED TO BATHROOM, VOIDED 600CC OF URINE.
--- NOTE | 2017-01-25 21:00 | NUR ---
DAUGHTER AT BEDSIDE.
--- NOTE | 2017-01-25 23:00 | NUR ---
REASSESSMENT COMPLETE, NO ACUTE CHANGE. SEE FLOWSHEET FOR COMPLETE DETAILS. DENIES NEED. CL IN REACH.
[2017-01-26] VITALS (25 sets, daily range): BP systolic 98–129; BP diastolic 58–76
--- NOTE | 2017-01-26 | NUR ---
URINE SAMPLE CUP PLACED IN ROOM. PATIENT STATES UNDERSTANDING OF CLEAN CATCH URINE SAMPLE.
--- NOTE | 2017-01-26 03:00 | NUR ---
REASSESSMENT COMPLETE, SEE FLOWSHEET. DENIES NEED AT THIS TIME.
--- NOTE | 2017-01-26 03:50 | NUR ---
LAB BEING DRAWN, APTT WITHIN THERAPEUTIC RANGE. NO CHANGES NEEDED.
[2017-01-26 04:01] LABS: HEMATOCRIT 37.5 % (36.0-48.0); HEMOGLOBIN 12.7 g/dL (12-16); MCH 32.8 pg (26.0-34.0); MCHC 33.9 g/dL (31.0-37.0); MCV 96.9 fL (80.0-100.0); MEAN PLATELET VOLUME 9.8 fL (7.4-10.4); RBC 3.87 10x6/uL (4.00-5.40); RDW 12.6 % (11.5-14.5); WBC 6.8 10x3/uL (4.8-10.8)
--- NOTE | 2017-01-26 05:00 | NUR ---
BACK FROM XRAY, TOLERATED WELL. PLACED ON MONITOR, NSR, VSS.
[2017-01-26 06:11] LABS: APPEARANCE CLEAR (CLEAR); BILIRUBIN NEGATIVE (NEGATIVE); COLOR STRAW (YELLOW); GLUCOSE NEGATIVE (NEGATIVE); KETONE NEGATIVE (NEGATIVE); NITRITE NEGATIVE (NEGATIVE); PROTEIN NEGATIVE (NEGATIVE); UROBILINOGEN NORMAL (NORMAL)
[2017-01-26 08:13] LABS: BASOPHILS 0.3 % (0-2); EOSINOPHILS 0.4 % (0-7); HEMATOCRIT 40.8 % (36.0-48.0); HEMOGLOBIN 13.8 g/dL (12-16); IMMATURE GRANULOCYTES 0.1 % (0-5); MCH 32.9 pg (26.0-34.0); MCHC 33.8 g/dL (31.0-37.0); MCV 97.1 fL (80.0-100.0); MONOCYTES 4.2 % (2-11); PLATELET COUNT 217 10x3/uL (130-400); RDW 12.7 % (11.5-14.5); WBC 6.7 10x3/uL (4.8-10.8)
[2017-01-26 08:22] LABS: PLT FUNCT.(P2Y12) PLAVIX 207 PRU (194-418)
[2017-01-26 08:24] LABS: HEMOGLOBIN A1C 5.2 % (4.8-6.0)
[2017-01-26 08:33] LABS: ALBUMIN 3.3 g/dL (3.4-5.0); BILIRUBIN - TOTAL 0.24 mg/dL (0.2-1.3); CALCIUM 8.8 mg/dL (8.5-10.1); CARBON DIOXIDE 31.9 mmol/L (21.0-32.0); CREATININE - SERUM 1.1 mg/dL (0.6-1.3); PHOSPHOROUS 3.7 mg/dL (2.5-4.9); POTASSIUM - SERUM 3.9 mmol/L (3.5-5.1); PROTEIN - SERUM 7.1 g/dL (6.4-8.2); T4 THYROXIN - FREE 1.03 ng/dL (0.76-1.46); THYROID STIMULATING HORMONE 1.77 uIU/mL (0.36-3.74); URIC ACID 4.5 mg/dL (2.6-7.2)
--- NOTE | 2017-01-26 09:31 | NUR ---
PATIENT DENIES ANY NEEDS AT THIS TIME. CALL LIGHT WITHIN REACH, BED IN LOW POSITION.
[2017-01-26 10:51] LABS: COLD SCREEN ROOM TEMP NEGATIVE (NEGATIVE)
[2017-01-26 10:52] LABS: COLD SCREEN @ 4 DEGREES 2+ (NEGATIVE)
--- NOTE | 2017-01-26 10:58 | NUR ---
PTT IS 76.6 NO CHANGES IN HEPARIN PER PROTOCOL AT THIS TIME.
--- NOTE | 2017-01-26 12:45 | NUR ---
DR. LUIS HERE IN TO SEE PATIENT.
--- NOTE | 2017-01-26 14:49 | NUR ---
PATIENT IS REQUESTING PAIN MED FOR HER BACK PAIN. 10 ON PAIN SCALE OF 1-10. PATIENT STATES IT IS ACHING.
--- NOTE | 2017-01-26 15:55 | NUR ---
PATIENT RESTING QUIETLY AT THIS TIME, DENIES ANY NEEDS, AND STATES PAIN IS BETTER.
[2017-01-26 16:44] LABS: INR 0.97 (0.85-1.17); PROTIME 12.7 SECONDS (11.6-15.0)
[2017-01-26 16:45] LABS: APTT 68.2 SECONDS (22.8-39.4)
--- NOTE | 2017-01-26 16:47 | NUR ---
PATIENT STATES SHE IS NAUSEATED AND DOES NOT WANT HER MEAL AT THIS TIME. ZOFRAN 4MG GIVEN PER ORDER. CALL LIGHT WITHIN REACH, BED IN LOW POSITION.
--- NOTE | 2017-01-26 17:56 | NUR ---
PATIENT WALKED 2 LAPS AROUND ICU AND DELI BAKERY CLERK WAITING, TOLERATED WELL. CALL LIGHT WITHIN REACH, BED IN LOW POSITION.
--- NOTE | 2017-01-26 19:00 | NUR ---
REPORT RECIEVED, SHIFT ASSESSMENT COMPLETE, PLEASE SEE FLOW SHEETS FOR DETAILS. AWAKE AND LAERT, ORIENTED X4. DENIES PAIN ATT. LUNG SOUNDS CLEAR, RR EVEN AND UNLABORED, ON ROOM AIR AND SPO2 95%. S1S2 HEARD AND NSR NOTED ON MONITOR AT 66, PPP +2. BOWEL SOUNDS ACTIVE X4 QUADRANTS. DISCOLORATIONS ON BACK NOTED, PATIENT STATED IT WAS FROM HER HEATING PAD USE FOR SO MANY YEARS. MOVES EXTREMEMTIES WITH NO WEAKNESS NOTED. GETS UP OOB AD.NIESHA.. L AC PIV INFUSING HEPARIN @ 700 UNITS/HR, SITE TENDER TO TOUCH WITH NO SIGNS OF REDNESS OR SWELLING NOTED, DRESSING CDI. REQUESTED A COKE WITH CUP OF ICE, THIS WAS PROVIDED. DEVELOPED PLAN FOR HIBICLEANSE BATH BEFORE SHE GOES TO SLEEP TONIGHT AND THIS WAS AGREED UPON. BED LOW AND LOCKED, CALL LIGHT IN REACH. WILL CPOC.
--- NOTE | 2017-01-26 21:00 | NUR ---
TOLERATED MEDS WELL, DENIES PAIN/NEEDS ATT. BED LOW AND LOCKED, CALL LIGHT IN REACH. VSS, WILL CPOC.
--- NOTE | 2017-01-26 22:40 | NUR ---
PT CLIPPED AND HIBICLEANSE BATH GIVEN PER PRE-OP ORDERS. PT TOLERATED WELL. FULL LINEN CHANGE PROVIDED. VSS, BED LOW AND LOCKED, CALL LIGHT IN REACH. WILL CPOC.
--- NOTE | 2017-01-26 22:57 | NUR ---
REASSESSMENT COMPLETE, PLEASE SEE FLOW SHEETS FOR COMPLETE DETAILS. C/O PAIN IN BACK, GAVE HOME MED PER REQUEST AND PER ORDERS. NO OTHER NEEDS ATT. BED LOW AND LOCKED, CALL LIGHT IN REACH. WILL CPOC.
--- NOTE | 2017-01-26 23:04 | NUR ---
APPT 62.4, INCREASED HEPARIN 100 UNITS/HR FROM 700 UNITS/HR TO 800 UNITS/HR PER ORDERS.
[2017-01-27] VITALS (51 sets, daily range): BP systolic 98–138; BP diastolic 55–75; Ht 167.6 cm; Wt 70.0 kg
--- NOTE | 2017-01-27 01:00 | NUR ---
RESTING ATT, NO S&S OF ACUTE DISTRESS NOTED. VSS, BED LOW AND LOCKED, CALL LIGHT IN REACH. WILL CPOC.
[2017-01-27 01:52] LABS: HEMATOCRIT 37.3 % (36.0-48.0); HEMOGLOBIN 12.5 g/dL (12-16); MCH 32.7 pg (26.0-34.0); MCHC 33.5 g/dL (31.0-37.0); MCV 97.6 fL (80.0-100.0); MEAN PLATELET VOLUME 9.9 fL (7.4-10.4); RBC 3.82 10x6/uL (4.00-5.40); RDW 12.8 % (11.5-14.5)
[2017-01-27 01:55] LABS: WBC 8.6 10x3/uL (4.8-10.8)
--- NOTE | 2017-01-27 03:00 | NUR ---
REASSESSMENT COMPLETE, PLEASE SEE FLOW SHEETS FOR DETAILS. DENIES PAIN/NEEDS ATT. NO CHANGES FROM PREVIOUS ASSESSMENTS. DC'D HEPARIN PER ORDERS, STARTED NS @ 10ML/HR (KVO). VSS, BED LOW AND LOCKED, CALL LIGHT IN REACH. WILL CPOC.
--- NOTE | 2017-01-27 05:00 | NUR ---
RESTING, DENIES PAIN/NEEDS ATT, BED LOW AND LOCKED, CALL LIGHT IN REACH. WILL CPOC.
--- NOTE | 2017-01-27 06:35 | NUR ---
PREOP COMPLETE. PT COMPLAINED OF NAUSEA, DR BRITTNY SAHNI.
--- NOTE | 2017-01-27 06:39 | NUR ---
FAMILY TAKING PHONE WITH EQUIPMENT MAN AND TABLET WHILE PT GOES TO OR. PT WANTS FAMILY TO TAKE GLASSESS RIGHT BEFORE SHE LEAVES FOR OR WELL.
--- NOTE | 2017-01-27 06:45 | NUR ---
PATIENT WAS ESCORTED TO OR BY HOSPITAL STAFF VIA BED.
[2017-01-27 08:17] LABS: PLT FUNCT.(P2Y12) PLAVIX 273 PRU (194-418)
--- NOTE | 2017-01-27 13:29 | NUR ---
1304 ARRIVED TO CVICU VIA BED WITH HEART TEAM AT BEDSIDE. APPLIED TO REFERENCE SERVICES HEAD, VENTILATOR APPLIED AT 60%. ALL VITALS WNL. ERIC HUGGER APPLIED FOR TEMPERATURE. OGT AUSCULATED FOR PLACEMENT AND ATTACHED TO LIS. CHEST TUBES ATTATCHED TO SUCTION. RESTRAINTS APPLIED AND HEELS BRIDGED. WILL MONITOR CLOSELY. 1334 DR. LUIS AT BEDSIDE TO DISCUSS SURGERY WITH FAMILY.
--- NOTE | 2017-01-27 13:50 | NUR ---
FI02 DECREASED TO 40% PER RT.
--- NOTE | 2017-01-27 14:34 | NUR ---
PT PLACED ON SIMV PER RT.
--- NOTE | 2017-01-27 15:05 | NUR ---
PT WAKING FROM ANESTHESIA, KICKING FEET. NODS HEAD APPROPRIATELY IN RESPONSE TO QUESTIONS, DRIFTS BACK TO SLEEP WHEN STIMULATION IS REMOVED. VSS, ST ON CM. 1:1 NURSING CARE IN PROGRESS.
--- NOTE | 2017-01-27 15:30 | NUR ---
REASSESSMENT VIA FLOWSHEET, SEE FOR DETAILS.
--- NOTE | 2017-01-27 16:05 | NUR ---
PT'S FAMILY AT BEDSIDE, UPDATE PROVIDED.
--- NOTE | 2017-01-27 16:35 | NUR ---
DR LUIS AT BEDSIDE, NEW ORDERS RECEIVED. TPM CHANGED TO VVI 70.
--- NOTE | 2017-01-27 16:44 | NUR ---
VENT CHANGE TO RATE OF 8 PER RT.
--- NOTE | 2017-01-27 17:22 | NUR ---
VENT RATE DECREASED TO 6 PER RT.
--- NOTE | 2017-01-27 18:23 | NUR ---
PT ANXIOUS, TAPPING SIDE RAILS WITH HANDS AND KICKING FEET. PT INFORMED SHE IS OUT OF OR AND DOING WELL. RESPONDS TO DIRECTION TO TAKE SLOW DEEP BREATHS. 1:1 CARE.
[2017-01-27 18:29] LABS: MCH 31.9 pg (26.0-34.0); MCV 96.8 fL (80.0-100.0); MEAN PLATELET VOLUME 9.7 fL (7.4-10.4); RDW 12.8 % (11.5-14.5)
[2017-01-27 18:32] LABS: WBC 11.7 10x3/uL (4.8-10.8)
[2017-01-27 18:34] LABS: HEMATOCRIT 17.9 % (36.0-48.0); HEMOGLOBIN 5.9 g/dL (12-16); RBC 1.85 10x6/uL (4.00-5.40)
--- NOTE | 2017-01-27 18:40 | NUR ---
DR LUIS UPDATED REGARDING PT STATUS.
--- NOTE | 2017-01-27 18:45 | NUR ---
INITIATED INFUSION #1 UNIT OF 2 PRBC PER STANDING ORDER.
--- NOTE | 2017-01-27 19:20 | NUR ---
REC'D PT ON VENT VIA 8.0 ETT TAPED SECURELY AT 21CM LIPLINE, SEE FLOW SHEET FOR VENT SETTINGS, PT AWAKE AND ALERT ON VENT, FOLLOWING COMMANDS AND NODDING APPROPRIATELY TO [place], DARSHAN HERNANDEZ SITTING AT APPROX 45CM, DRSG CDI WITH MANNIFOLD TO PROXIMAL INFUSION WITH PLASMALYTE @ 100CC/HR, DOPAMINE @ 3MCG/KG/MIN, INSULIN AT 0.5 UNITS/HR TO DISTAL LUMEN, LDLSCL DRSG CDI WITH BURETROL INFUSING @ 40CC/HR AND NITROGLYCERIN ON HOLD, MIDSTERNAL DRSG CDI, LEFT RADIAL SAEED WITH FLEXION BOARD IN USE, LINES LEVELED AND ZEROED WITH RETURN OF APPROPRIATE WAVEFORM NOTED, SUBSTERNAL DRSG CDI, CT'S X 3 TO 20CM H2O SUCTION, NO AIR LEAK NOTED, DRSG CDI, EXTERNAL P/M VVI 70 VMA 10 CM-ST @ 103, P/M SENSING, RIGHT LEG COBAN DRSG CDI, HASMUKH DRAIN COMPRESSED WITH BLOODY DRAINAGE, CRITICORE GAMEZ PATENT DRAINING CLEAR YELLOW URINE, SCD AND LAYSIA TO LEFT LEG, PPP, BILAT SOFT WRIST RESTRAINTS INTACT, SR UP X 2, 1:1 NURSE AT BS.
--- NOTE | 2017-01-27 19:25 | NUR ---
PT EXTUBATED TO 4L NC, BILAT SOFT WRIST RESTRAINTS REMOVED AFTER INSTRUCTIONS GIVEN TO NOT PULL AT LINES OR TUBES, PT NODDING IN UNDERSTANDING, OGT DC'D, ORAL CARE PROVIDE AND FACE WASHED, O2 SAT 100%.
--- NOTE | 2017-01-27 19:55 | NUR ---
DEMEROL TRAINING SPECIALIST SET UP AND INSTRUCTIONS FOR USE GIVEN, DEMEROL 1OMG Q10MIN WITH 240MG Q4HR LOCKOUT, PT RATING PAIN "10" ON 0-10 PAIN SCALE AT THIS TIME, PT REPOSITIONED IN BED FOR COMFORT
--- NOTE | 2017-01-27 20:00 | NUR ---
FAMILY AT BS, UPDATE GIVEN AND QUESTIONS ANSWERED, PT COMPLAINS OF DRY MOUTH, FEW ICE CHIPS GIVEN AT THIS TIME
--- NOTE | 2017-01-27 22:30 | NUR ---
RT AT BS FOR BREATHING TX, PART OF SUBSTERNAL DRSG SATURATED WITH SANGUINOUS DRAINAGE, DRSG REMOVED, ALL CT'S PATENT, SM AMOUNT OF BLEEDING NOTED AROUND ANTERIOR INSERTION SITE, SITE CLEANED WITH CHLORAPREP AND BETADINE, 4X4'S APPLIED AND COVERED WITH LARGE TEGADERM, PARTIAL BATH GIVEN WITH CHOLRAHEXIDINE WIPES, PT REPOSITIONED UP IN BED FOR COMFORT.
--- NOTE | 2017-01-27 23:00 | NUR ---
REASSESSMENT COMPLETED, PT CONTINUES TO COMPLAIN OF PAIN REMINDED PT OF TECHNOLOGY INTERNSHIP BUTTON AND INSTRUCTIONS FOR USE, 120CC SANGUINOUS DRAINAGE FROM ANTERIOR CT, SANGUINOUS DRAINAGE NOTED TO SUBSTERNAL DRSG, WILL MONITOR CLOSELY FOR CHANGES.
[2017-01-28] VITALS (84 sets, daily range): BP systolic 90–117; BP diastolic 40–66
--- NOTE | 2017-01-28 01:20 | NUR ---
180CC DRAINAGE FROM ANTERIOR CT, SATURATED WITH SANGUINOUS DRAINAGE, HEMOGRAM, PT AND PTT ORDERED AT THIS TIME.
[2017-01-28 01:31] LABS: HEMATOCRIT 25.4 % (36.0-48.0); HEMOGLOBIN 8.7 g/dL (12-16); MCHC 34.3 g/dL (31.0-37.0); MCV 93.4 fL (80.0-100.0); RBC 2.72 10x6/uL (4.00-5.40); RDW 13.9 % (11.5-14.5); WBC 11.7 10x3/uL (4.8-10.8)
[2017-01-28 01:41] LABS: INR 1.34 (0.85-1.17); PROTIME 16.5 SECONDS (11.6-15.0)
[2017-01-28 01:42] LABS: APTT 38.1 SECONDS (22.8-39.4)
--- NOTE | 2017-01-28 02:00 | NUR ---
DR LUIS CALLED REGARDING OUTPUT FROM CHEST TUBE, LAB VALUES PROVIDED, NO NEW ORDERS AT THIS TIME.
--- NOTE | 2017-01-28 03:30 | NUR ---
PT CONTINUES TO COMPLAIN OF PAIN, PT USING VINYL INSTALLER FREQUENTLY, SBP TRENDING LOW 90'S, SUBSTERNAL DRSG SATURATED WITH SANGUINOUS DRAINAGE, DRSG CHANGED AT THIS TIME, PT COMPLAINS OF CT SITES BURNING AND STINGING, AREAS BELOW CT INSERTION SITES CLEANED WITH CHLORIHEXIDINE WIPES, COVERED WITH 4X4'S AND TEGADERMS, PARTIAL LINEN CHANGE GIVEN, PT REPOSITIONED FOR COMFORT, ICE WATER PROVIDED, NO COMPLAINTS OF NAUSEA.
--- NOTE | 2017-01-28 05:30 | NUR ---
SBP MID 80'S, PT RESTING EYES CLOSED, RESP EVEN AND UNLABORED, RT NOTIFIED OF NEED FOR ABG.
--- NOTE | 2017-01-28 05:45 | NUR ---
HGB 7.1 AND HCT 21, 1ST OF 2 UNITS PRBC BEGUN AT THIS TIME, WILL MONITOR FOR CHANGES.
--- NOTE | 2017-01-28 06:37 | NUR ---
ORAL CARE DONE WITH PERIDEX
--- NOTE | 2017-01-28 06:40 | NUR ---
PRBC'S COMPLETED, AM LAB DRAWN AND SENT TO LAB, NO VISITORS IN AT THIS TIME.
[2017-01-28 07:00] LABS: HEMATOCRIT 29.5 % (36.0-48.0); MCH 31.4 pg (26.0-34.0); MCHC 33.9 g/dL (31.0-37.0); MCV 92.8 fL (80.0-100.0); MEAN PLATELET VOLUME 10.3 fL (7.4-10.4); RBC 3.18 10x6/uL (4.00-5.40); RDW 13.7 % (11.5-14.5); WBC 13.2 10x3/uL (4.8-10.8)
[2017-01-28 07:03] LABS: PLATELET COUNT 62 10x3/uL (130-400)
[2017-01-28 07:20] LABS: PLATELET ESTIMATE DECREASED
[2017-01-28 07:24] LABS: ALBUMIN 3.2 g/dL (3.4-5.0); BILIRUBIN - TOTAL 1.3 mg/dL (0.2-1.3); CALCIUM 7.8 mg/dL (8.5-10.1); CARBON DIOXIDE 27.6 mmol/L (21.0-32.0)
[2017-01-28 07:26] LABS: ANION GAP 12.3 mmol/L (8-16); POTASSIUM - SERUM 4.9 mmol/L (3.5-5.1); PROTEIN - SERUM 4.9 g/dL (6.4-8.2)
--- NOTE | 2017-01-28 07:50 | NUR ---
DR. LUIS AT BEDSIDE. CT DRESSING SATURATED WITH BLOODY DRAINAGE. DRESSING REMOVED AND DR. LUIS INJECTED ANTERIOR CT SITE (MIDDLE) WITH LIDOCAINE WITH EPI. PT TOLERATED WELL. NEW DRESSING APPLIED PER MD ORDERS. PACER WIRES INTACT AND SECURED. NO ACUTE BLEEDING NOTED AT MIDDLE CT SITE. WILL CONTINUE TO MONITOR.
[2017-01-28 08:07] LABS: INR 1.5 (0.85-1.17)
[2017-01-28 08:08] LABS: APTT 38.5 SECONDS (22.8-39.4)
--- NOTE | 2017-01-28 08:59 | NUR ---
PRESSURE BAGS CHANGED OUT TO NS AND HEPARIN BAGS REMOVED PER ORDER.
--- NOTE | 2017-01-28 09:29 | NUR ---
PLATELETS STARTED TO RIGHT IJ CORDIS.
--- NOTE | 2017-01-28 09:34 | NUR ---
FIRST OF 2 UNITS FFP STARTED TO RIGHT IJ CORDIS. PT TOLERATING WELL. NO S/S OF DISTRESS NOTED. VSS AT THIS TIME. WILL CONTINUE TO MONITOR.
--- NOTE | 2017-01-28 11:20 | NUR ---
PT RESTING COMFORTABLY. NO NEEDS AT THIS TIME.
--- NOTE | 2017-01-28 13:30 | NUR ---
ENCOURAGED TO DEEP BREATHE/COUGH.
[2017-01-28 13:46] LABS: HEMOGLOBIN 7.6 g/dL (12-16)
--- NOTE | 2017-01-28 14:05 | NUR ---
RECHECKED H & H ON BLOOD DRAW. RESULTS CALLED TO MADELINE CORTEZ RN. COVERING WITH 2 UNITS PRBC PER MD ORDERS. FIRST UNIT PRBC STARTED TO RIGHT IJ CORDIS. PT TOLERATING WELL. NO S/S OF REACTION NOTED. WILL CONTINUE TO MONITOR.
--- NOTE | 2017-01-28 14:50 | NUR ---
ALL BLOOD PRODUCTS HAVE BEEN INFUSED. PT TOLERATED WELL. RIGHT IJ PORT FLUSHED AND SALINE LOCKED. NO S/S OF REACTION NOTED.
--- NOTE | 2017-01-28 15:30 | NUR ---
PT HAD COMPLETE BATH AND LINEN CHANGE. GAMEZ CARE GIVEN WITH SURE STEP GAMEZ WIPES. RIGHT LEG KOBAN DRESSING CHANGED PER MD ORDERS. INCISIONS X 3 INTACT WITH JOSE E. NO S/S OF INFECTION NOTED.
--- NOTE | 2017-01-28 16:44 | NUR ---
PT'S FAMILY AT BEDSIDE. UPDATED ON PT'S STATUS.
--- NOTE | 2017-01-28 18:33 | NUR ---
ORAL CARE PROVIDED WITH PERIDEX
--- NOTE | 2017-01-28 19:15 | NUR ---
REPORT REC'D AND CARE ASSUMED, REC'D PT ON O2 @ 2 LITERS VIA NC, AWAKE, ALERT, AND ORIENTED, RIOscar HERNANDEZ DRSG CDI WITH PLASMALYTE @ 10CC, LDLSCL DRSG CDI WITH BURETROL @ 20CC/HR AND DEMEROL TRAFFIC ATTENDANT 10MG Q10MIN WITH 240MG Q4H LOCKOUT, PT RATING PAIN "5" ON 0-10 PAIN SCALE, MIDSTERNAL DRSG CDI, LEFT RADIAL SAEED WITH FLEXION BOARD IN USE, LEVELED AND ZEROED WITH RETURN OF APPROPRIATE WAVEFORM, SUBSTERNAL DRSG WITH CT'S X 3, ALL TO 20CM H2O SUCTION, NO AIR LEAK NOTED, RIGHT LEG HARVEST SITES DRSGS CDI, HASMUKH COMPERSSED WITH SEROSANGUINOUS DRAINAGE, CRITICORE GAMEZ PATENT DRAINING CLEAR YELLOW URINE, BILAT TEDS AND SCDS OFF FOR A BREAK, PPP, EXTERNAL P/M VVI 70 VMA 10, CM- SR @ 91, P/M SENSING, PT REQUESTING ICE WATER, PROVIDED AT THIS TIME, PT DENIES FURTHER NEEDS.
--- NOTE | 2017-01-28 20:00 | NUR ---
JEAN CLAUDE AT BS, UPDATE GIVE AND QUESTIONS ANSWERED.
--- NOTE | 2017-01-28 20:35 | NUR ---
EVENING MEDS GIVEN ORDERED, PT COMPLAINS OF INCISIONAL DISCOMFORT, RATING PAIN "7-8" ON PAIN SCALE, 15MG TORADOL GIVEN SLOW IVP, VSS.
--- NOTE | 2017-01-28 23:00 | NUR ---
RT AT BS TO PLACE PT ON BREATHING TX, PT PULLED TREATMENT OFF AFTER A FEW MINUTES AND STATES "IT GETTING ME ALL WET", EXPLAINED TO PT IT WAS THE MEDICINE THAT WAS COMING OUT IN THE FORM OF A MIST, PT REFUSES TO PLACE BREATHING TX BACK ON, AGREEABLE TO HOLD MASK IN FRONT OF FACE.
--- NOTE | 2017-01-28 23:15 | NUR ---
BREATHING TX COMPLETED, PT ARGUMENTATIVE NURSE AND RT ABOUT FINISHING BREATHING TX, PT COMPLIANS OF BEING LOPSIDED IN BED AND BACK HURTING TO BAD TO "DO ANYTING ELSE", PT STRAIGHTENED AND PULLED UP IN BED, HOB ELEVATED, PT ABLE TO PULL 1000 X 3 ON IS 750 ON THE REST, PT USING DEMEROL PROVIDER ENGAGEMENT EXECUTIVE FOR PAIN CONTROL.
[2017-01-29] VITALS (33 sets, daily range): BP systolic 99–122; BP diastolic 50–77
--- NOTE | 2017-01-29 01:30 | NUR ---
NO CHANGES IN STATUS, PT RESTING IN BED EYES CLOSED, RESP EVEN AND UNLABORED, VSS.
--- NOTE | 2017-01-29 03:00 | NUR ---
PT ASSISTED TO REPOSITION IN BED, COMPLAINS OF INCISIONAL DISCOMFORT, USING DEMEROL FOREMAN SHIPPING DEPARTMENT, INFORMED PT IT WAS TIME FOR TORADOL IF NEEDED, PT REFUSES AT THIS TIME STATES " I WANT TO WAIT", WILL MONITOR FOR CHANGES.
--- NOTE | 2017-01-29 03:45 | NUR ---
RADIOLOGY AT BS FOR AM CXR
--- NOTE | 2017-01-29 04:20 | NUR ---
LDLSCL DRSG CHANGED PER PROTOCOL, PT RATING PAIN "10" ON 0-10 PAIN SCALE, 15MG TORADOL GIVEN SLOW IVP AT THIS TIME, PILLOWS REPOSITIONED FOR COMFORT, COKE PROVIDED ON REQUEST, PT DENIES FURTHER NEEDS.
--- NOTE | 2017-01-29 06:15 | NUR ---
AM LAB DRAWN FROM CVL AND SENT TO LAB, NO VISITORS IN THIS AM, PT RESTING EYES CLOSED, RESP EVEN AND UNLABORED, VSS.
[2017-01-29 06:58] LABS: MCH 30.7 pg (26.0-34.0); MCHC 33.8 g/dL (31.0-37.0); MCV 90.9 fL (80.0-100.0); MEAN PLATELET VOLUME 10.7 fL (7.4-10.4); RBC 3.39 10x6/uL (4.00-5.40); RDW 15.3 % (11.5-14.5); WBC 10.4 10x3/uL (4.8-10.8)
[2017-01-29 07:12] LABS: BILIRUBIN - TOTAL 0.79 mg/dL (0.2-1.3); CALCIUM 8.3 mg/dL (8.5-10.1); CARBON DIOXIDE 29.4 mmol/L (21.0-32.0); POTASSIUM - SERUM 4.4 mmol/L (3.5-5.1); PROTEIN - SERUM 5.6 g/dL (6.4-8.2)
[2017-01-29 07:26] LABS: HEMATOCRIT 30.8 % (36.0-48.0); HEMOGLOBIN 10.4 g/dL (12-16)
--- NOTE | 2017-01-29 08:30 | NUR ---
DR. LUIS AT BEDSIDE. PULLED BACK SWAN FROM PT'S CORDIS UNTIL REMOVED. PT TOELRATED WELL. PUSHED VERSED 5MG AND D/C'D CT X3. PT TOLERATED WELL. DRESSINGS CHANGED PER MD ORDERS. ALL INCISIONS INTACT. NO S/S OF INFECTION NOTED.
--- NOTE | 2017-01-29 09:00 | NUR ---
RIGHT IJ CORDIS AND LEFT RADIAL A-LINE D/C'D WITH CATH TIP INTACT. RIGHT LEG HASMUKH DRAIN D/C'D. GAMEZ CATH D/C'D PER MD ORDERS. PT TOLERATED WELL.
--- NOTE | 2017-01-29 09:30 | NUR ---
PT HAD COMPLETE BATH AND LINEN CHANGE. TOLERATED WELL. ALL DRESSINGS HAVE BEEN CHANGED PER MD ORDERS. PT UP TO CHAIR WITH MINIMAL ASSIST. CALL LIGHT WITHIN REACH.
--- NOTE | 2017-01-29 10:12 | NUR ---
* Is the patient Alert and Oriented? Yes 0 * How many steps to enter\exit or inside your home? 1 0 * PCP Dr. Shen Rosas 0 * Pharmacy [facility] in [place] 0 * Preadmission Environment Home Alone 0 * ADLs Independent 0 * List name and contact numbers for known caregivers / representatives who currently or will assist patient after discharge: Lenny Betancur [phone] 0 * Additional services required to return to the preadmission environment? No 0 * Can the patient safely return to the preadmission environment? Yes 0 * Has this patient been hospitalized within the prior 30 days at any hospital? No Patient Name: BRENDA LUZ Admission Status: Elective Accout number: [id number] Admission Date: 01-24-2017 : 1965 Admission Diagnosis: Attending: TEJ LUIS Current LOS: 5 Anticipated DC Date: 02-03-2017 Planned Disposition: Home Primary Insurance: MEDICARE A & B Discharge Planning Comments: CM met with patient to assess dc plans/needs. Patient states she lives alone and is independent with all ADL's & IADL's. She denies having DME or having home health services. At dc, she plans to return home. She states her son & other family will help her at home after discharge. No needs identified or verbalized at this time. CM will follow & assist as needed. Marketing Operations Consultant: Emily Turner
--- NOTE | 2017-01-29 10:15 | NUR ---
PT AMBULATED 40 FEET WITH PHYSICAL THERAPY. C/O DIZZYNESS. BP STABLE. HR STABLE. BACK TO CHAIR WITH CALL LIGHT WITHIN REACH.
--- NOTE | 2017-01-29 10:26 | NUR ---
Nutrition Follow Up: Chart reviewed. Pt is POD 1 CABG. Pt is on clear liquid diet. Wt gain noted. +BM 01/26/17. Meds and labs reviewed. Rec advancing NOEMI when medically feasible. RD following.
--- NOTE | 2017-01-29 10:59 | NUR ---
PT'S FAMILY AT BEDSIDE. BROUGHT PT'S GLASSES, CELL PHONE, AND TABLET PER PT'S REQUEST. UPDATED THEM ON PT'S STATUS.
--- NOTE | 2017-01-29 11:42 | NUR ---
PT ASSISTED BACK TO BED. CALL LIGHT WITHIN REACH. STEADY GAIT NOTED.
--- NOTE | 2017-01-29 12:25 | NUR ---
PT C/O NAUSEA. WILL GIVE PROTONIX AND REGLAN ORDERED.
--- NOTE | 2017-01-29 13:46 | NUR ---
PT UP TO RESTROOM. VOIDED WITHOUT DIFFICULTY. AMBULATED BACK TO CHAIR WITHOUT ASSISTANCE. SET UP IN CHAIR. CALL LIGHT WITHIN REACH.
--- NOTE | 2017-01-29 13:54 | NUR ---
PT PULLING [id number] ON INCENTIVE SPIROMETER
--- NOTE | 2017-01-29 14:15 | NUR ---
PT AMBULATED WITH PHSYICAL THERAPY APPOX 125 FT. TOLERATED WELL. PT WALKED ON ROOM AIR. O2 SAT 93%. RESP 13.
--- NOTE | 2017-01-29 16:35 | NUR ---
PT RESTING IN BED WITH EYES CLOSED. RESP EQUAL AND UNLABORED. CALL LIGHT WITHIN REACH.
--- NOTE | 2017-01-29 18:00 | NUR ---
ASSISTED TO BATHROOM. VOIDED 400CC OF CLEAR YELLOW URINE. ASSISTED BACK TO BED WITH NO ISSUES. CALL LIGHT IN REACH. BED IN LOW POSITION.
--- NOTE | 2017-01-29 18:37 | NUR ---
ORAL CARE WITH PERIDEX PROVIDED
--- NOTE | 2017-01-29 19:15 | NUR ---
REPORT RECEIVED CARE ASSUMED. INITIAL SHIFT ASSESSMENT COMPLETED SEE FLOWSHEET. PT CONTINUES TO BE MONITORED PER STANDARD CVICU PROTOCOL WITH ALL ALARMS SET AND VERIFIED. PT DOES HAVE TPM SENSING AT THIS TIME. IVF AND LINES ARE ALL DATED LABELED AND ARE CURRENT AT THIS TIME. PT DENIES NEEDS. CALL LIGHT IN REACH.
--- NOTE | 2017-01-29 20:00 | NUR ---
PT'S NIECE/DAUGHTER HERE TO VISIT. PT ASKED FOR HER SODA IN FRIG, PROVIDED NO FURTHER REQUESTS.
--- NOTE | 2017-01-29 21:30 | NUR ---
HS MEDS GIVEN DOCUMENTED ON MAY. PT WITH NO SWALLOWING DIFFICULTY. PT TEACHING DONE ON INDICATIONS AND EFFECTS OF MEDICATIONS PRIOR TO ADMINISTRATION. PT REFUSED HS SNACK.
--- NOTE | 2017-01-29 22:41 | NUR ---
RT AT BEDSIDE FOR TREATMENT. O2 PUT ON AT 2L/N/C. PT KEEPS DROPPING O2 SATS TO 89-90%. PT ENCOURAGED TO USE HER IMCEMTIVE SPIROMETRY DOING 1000ML
--- NOTE | 2017-01-29 23:00 | NUR ---
SHIFT REASSESSMENT COMPLETED SEE FLOWSHEET. NO SIGNIFICANT CHANGE. PT REMAINS AWAKE. REUFES BATH OR ANY PERSONAL HS CARE STATES SHE WILL TAKE CARE OF THESE THINGS IN THE MORNING. CALL LIGHT LEFT IN REACH
[2017-01-30] VITALS (23 sets, daily range): BP systolic 117–139; BP diastolic 70–91
--- NOTE | 2017-01-30 03:30 | NUR ---
RT AT BEDSIDE FOR TREATMENT
--- NOTE | 2017-01-30 05:00 | NUR ---
PT LEAVING UNIT FOR RADIOLOGY VIA W/C FOR ORDERED PA AND LAT CXR VIA W/C ACCOMPANIED PER STAFF
--- NOTE | 2017-01-30 05:30 | NUR ---
PT RETURNED FROM RADIOLOGY, RECONNECTED TO MONITORS, OFFERED TOILETING AND BATH. PT REFUSED. TRANSFERRED WELL GAIT STEADY.
--- NOTE | 2017-01-30 05:45 | NUR ---
NEW TUBING HUNG WITH PLASMOLYTE
[2017-01-30 06:36] LABS: HEMATOCRIT 31.3 % (36.0-48.0); HEMOGLOBIN 10.5 g/dL (12-16); MCH 30.8 pg (26.0-34.0); MCHC 33.5 g/dL (31.0-37.0); MCV 91.8 fL (80.0-100.0); MEAN PLATELET VOLUME 10.3 fL (7.4-10.4); RBC 3.41 10x6/uL (4.00-5.40); RDW 14.9 % (11.5-14.5); WBC 9.9 10x3/uL (4.8-10.8)
[2017-01-30 07:05] LABS: ALBUMIN 2.7 g/dL (3.4-5.0); ANION GAP 10.7 mmol/L (8-16); BILIRUBIN - TOTAL 0.6 mg/dL (0.2-1.3); CALCIUM 8.2 mg/dL (8.5-10.1); CREATININE - SERUM 1.1 mg/dL (0.6-1.3); PROTEIN - SERUM 5.4 g/dL (6.4-8.2)
[2017-01-30 07:06] LABS: POTASSIUM - SERUM 3.7 mmol/L (3.5-5.1)
--- NOTE | 2017-01-30 07:15 | NUR ---
REPORT RECIEVED FROM DEMOLITION SPECIALIST NURSE. PT RESTING IN BED QUIETLY. SHIFT ASSESSMENT PER FLOWSHEET. REFER FOR DETAILS. CALL LIGHT IN REACH. VSS.
--- NOTE | 2017-01-30 08:00 | NUR ---
CONNECTED TO PORTABLE MONITOR TO AMBULATE WITH PT.
--- NOTE | 2017-01-30 09:15 | NUR ---
MORNING MEDICATIONS ADMINISTERED PER EMAR. RESTING IN RECLINER. FRESH ICE WATER TAKEN. DENIES FURTHER NEEDS. CALL LIGHT IN REACH.
--- NOTE | 2017-01-30 11:00 | NUR ---
REASSESSMENT COMPLETE PER FLOWSHEET. NO CHANGES NOTED AT THIS TIME. VSS. CALL LIGHT IN REACH.
--- NOTE | 2017-01-30 12:37 | OP ---
PATIENT NAME: BRENDA LUZ MEDICAL RECORD: [id number] :61 LOCATION:[facility].CV04 ADMISSION DATE:01/24/17 SURGEON: TEJ CHIANG MD DATE OF OPERATION: 01/27/2017 SURGEON: Tej Chiang MD ANESTHESIA: General endotracheal, Dr. Ruelas. OPERATION PERFORMED: Coronary artery bypass utilizing left internal thoracic, left anterior descending and reverse saphenous vein segment to the distal right coronary artery. PREOPERATIVE DIAGNOSES: Intermediate coronary syndrome, atherosclerosis with in-stent stenosis. POSTOPERATIVE DIAGNOSES: Intermediate coronary syndrome, atherosclerosis with in-stent stenosis. INDICATION FOR OPERATION: Angina pectoris. FINDINGS OF THE OPERATION: The left internal thoracic and right greater saphenous veins were of excellent quality. The target vessels were also of good quality and caliber. ESTIMATED BLOOD LOSS: Cell Saver was used. DESCRIPTION OF PROCEDURE: After informed consent and adequate preoperative medication and evaluation, the patient was brought to the operating room and placed on the table in the supine position. After induction of general endotracheal anesthesia and application of appropriate monitoring devices, the chest, neck, abdomen, and both legs were prepped and draped in a sterile field, utilizing Betadine scrub, alcohol, and Betadine solution. A Betadine-impregnated drape was also used. Saphenous vein was harvested from the right thigh and prepared for reverse saphenous vein grafting. The leg was closed over drains utilizing 3-0 Vicryl and skin chika. A median sternotomy incision was used and dissection carried down to the fascia. Hemostasis was maintained with electrocautery. Sternum was divided. Innominate vein was identified and protected. Left internal thoracic was taken down and prepared for grafting. The patient was given a calculated dose of heparin, cannulated in a standard fashion utilizing 1 aortic, one two-stage cannula in the atrium and inferior vena cava. The patient was placed on cardiopulmonary bypass, cooled to 32 degrees centigrade. A cross clamp was placed just proximal to the aortic cannula and the patient was given cardioplegic solution through the aortic root. The patient was given a cold induction and cold maintenance. The patient was given cold intermittent cardioplegic solution throughout the procedure through the root, through the grafts or a combination of both. The first vessel to be grafted was the distal right coronary artery was grafted end-to-side utilizing a running 7-0 Prolene suture. Grafts were measured back to the aorta and a proximal anastomosis fashioned utilizing running 6-0 Prolene suture. Next, left internal thorax was brought through the hole in pericardium, sutured left anterior descending end-to-side utilizing a running 8-0 Prolene suture. Pedicle was attached to epicardium with 6-0 Prolene suture. All maneuvers to remove trapped air were performed. The patient was given warm cardioplegic reperfusion and controlled reperfusion. The patient rewarmed to 37 degrees centigrade. Two OPERATIVE REPORT [id number] BRENDA LUZ atrial and 2 ventricular pacing wires were placed on the heart and brought out through the epigastric area. The patient was weaned cardiopulmonary bypass. After being stable off bypass, she was given calculated dose of protamine to reverse the heparin. Hemostasis was achieved. A #40 right angle and #36 chest tubes were brought in through the epigastric area and placed in the mediastinum. The chest was again irrigated. Instrument count and sponge count were correct times 2. Chest was closed in layers utilizing #7 wire on the sternum, #2 Vicryl on linea alba and pectoralis fascia. Subcutaneous tissue was approximated with 3-0 Vicryl and skin approximated with 3-0 subcuticular Vicryl. Sterile dressings were applied. The patient tolerated the procedure well and transferred to the CV ICU in satisfactory condition. TRANSINT:[id number] Voice Confirmation ID: [id number] DOCUMENT ID: [id number] TEJ CHIANG MD at 1237 CC: [id number] DICTATION DATE: 01/27/17 1250 FITTER WELDER: 01/27/17 1556 ADM IN [place] [id number] [place] [id number]
--- NOTE | 2017-01-30 15:00 | NUR ---
ASSISTED TO BATHROOM. PT HAD LARGE BM.
--- NOTE | 2017-01-30 16:00 | NUR ---
ASSISTED TO RECLINER FOR DINNER. FRESH ICE WATER AND COKE PER REQUEST. CALL LIGHT IN REACH.
--- NOTE | 2017-01-30 17:30 | NUR ---
PT RESTING IN CHAIR QUIELTY. RESP EQUAL AND UNLABORED. CALL LIGHT WITHIN REACH. WILL CONT TO ASSESS.
--- NOTE | 2017-01-30 18:07 | NUR ---
ORAL CARE PERFORMED WITH PERIDEX ORDERED
--- NOTE | 2017-01-30 19:30 | NUR ---
REPORT RECIEVED. PT REQUESTED TO GO THE RESTROOM. HELPED TO THE RESTRROM AND BACK TO BED. BACK ON ICU MONITORS. ASSESSMENT COMPLETED. SEE FLOW SHEET FOR DEATILS. VSS. PT POSITIONED FOR COMFORT WILL CONTINUE TO MONITOR PT.
--- NOTE | 2017-01-30 21:00 | NUR ---
HS MEDS ADMINISTERED. PT REFUSED THE LOPRESSOR 12.5 MG. EDUCATED HER ON WHAT IT DID AND HOW IT WORKED. PT STILL REFUSED MED. WILL CONTINUE TO MONITOR PT.
--- NOTE | 2017-01-30 23:00 | NUR ---
REASSESSMENT COMPLETED AT THIS TIME. NO ACUTE CHANGES. SEE FLOW SHEET FOR DETAILS. PT AWAKE WATCHING TV. POSITIONED FOR COMFORT, WILL CONTINUE TO MONITOR PT.
[2017-01-31] VITALS (23 sets, daily range): BP systolic 107–134; BP diastolic 62–88
--- NOTE | 2017-01-31 01:00 | NUR ---
PT REQUESTED TO USE THE RESTROOM. HELPED BACK IN BED AND HOOKED BACK TO MONITORS. POSITIONED PT FOR COMFORT WILL CONTINUE TO MONITOR.
--- NOTE | 2017-01-31 03:00 | NUR ---
REASSESSMENT COMPLETED AT THIS TIME. NO ACUTE CHANGES. SEE FLOW SHEET FOR FURTHER DETAILS. WILL CONTINUE TO MONITOR PT.
--- NOTE | 2017-01-31 05:15 | NUR ---
SUBSTERNAL AND RIGHT LEG DRESSING CHANGED PER ORDER. PT IN CHAIR POSITIONED FOR COMFORT. WILL CONTINUE TO MONITOR.
[2017-01-31 06:25] LABS: HEMATOCRIT 29.1 % (36.0-48.0); HEMOGLOBIN 9.7 g/dL (12-16); MCH 31.1 pg (26.0-34.0); MCHC 33.3 g/dL (31.0-37.0); MCV 93.3 fL (80.0-100.0); MEAN PLATELET VOLUME 10.5 fL (7.4-10.4); RBC 3.12 10x6/uL (4.00-5.40); RDW 14.6 % (11.5-14.5); WBC 8.2 10x3/uL (4.8-10.8)
--- NOTE | 2017-01-31 07:15 | NUR ---
REPORT RECIEVED FROM WALKING DRAGLINE OILER NURSE. PT RESTING IN BED QUIETLY. NO S/SX OF ACUTE DISTRESS NOTED AT THIS TIME. SHIFT ASSESSMENT COMPLETE PER FLOWSHEET. REFER FOR DETAILS. CALL LIGHT IN REACH. BED IN LOW POSITION. WILL CONT PLAN OF CARE.
[2017-01-31 07:57] LABS: ALBUMIN 2.6 g/dL (3.4-5.0); ANION GAP 12.9 mmol/L (8-16); BILIRUBIN - TOTAL 0.8 mg/dL (0.2-1.3); CALCIUM 8.2 mg/dL (8.5-10.1); CARBON DIOXIDE 28.6 mmol/L (21.0-32.0); POTASSIUM - SERUM 3.5 mmol/L (3.5-5.1); PROTEIN - SERUM 5.3 g/dL (6.4-8.2)
--- NOTE | 2017-01-31 08:15 | NUR ---
PT AT BEDSIDE TO ASSIST PT WITH A WALK. ATTACHED TO PORTABLE TELE. WILL MONITOR.
--- NOTE | 2017-01-31 08:30 | NUR ---
IN RECLINER FOR BREAKFAST. FRESH ICE WATER AND COKE PROVIDED PER REQUEST. CALL LIGHT IN REACH ALONG WITH MEAL TRAY. DENIES FURTHER NEEDS.
--- NOTE | 2017-01-31 08:44 | NUR ---
NUTRITION F/U PT UP TO CHAIR. NURSING REPORTS PT WITH GOOD PO INTAKE AHA DIET. WILL CONTINUE TO PROVIDE DIET, MONITOR PT PROGRESS. RD FOLLOWING
--- NOTE | 2017-01-31 09:56 | NUR ---
MORNING MEDICATIONS ADMINISTERED PER EMAR.
--- NOTE | 2017-01-31 11:15 | NUR ---
DR. LUIS AT BEDSIDE. SEDATED WITH 5MG OF VERSED. TPM WIRES PULLED. VSS. WILL MONITOR.
--- NOTE | 2017-01-31 12:46 | NUR ---
PT REQUESTED HER NUCYNTA FOR BACK PAIN. ADMINSITERED PER EMAR. WILL REASSESS.
--- NOTE | 2017-01-31 14:00 | NUR ---
FAMILY AT BEDSIDE. UPDATE PROVIDED. VSS.
--- NOTE | 2017-01-31 15:00 | NUR ---
REASSESSMENT COMPLETE PER FLOWSHEET. NO CHANGES NOTED AT THIS TIME. CALL LIGHT IN REACH.
--- NOTE | 2017-01-31 17:10 | NUR ---
NUCYNTA ADMINISTERED FOR PAIN LOCATED IN HER BACK. WILL REASSESS.
--- NOTE | 2017-01-31 18:38 | NUR ---
ORAL CARE PERFORMED WITH PERIDEX ORDERED
--- NOTE | 2017-01-31 19:20 | NUR ---
SHIFT ASSESSMENT COMPLETED. SEE ASSESSMENT FLOWSHEET. EYEGLASSES ON BRIDGE OF NOSE BUT DONE SO NOT STRAIGHT TO SEE HER PHONE. UNABLE TO TELL IF HAVING ANY INCISIONAL PAIN DUE TO CHRONIC BACK PAIN AT THIS TIME. REPORTS SOME RELIEF FROM PAIN MEDS. MIDSTERNAL INCISION CLOSED WITH SKIN GLUE AND OPEN TO AIR WITH MINIMAL BRUISING NOTED. PACER WIRES REMOVED TODAY. REPORTS HAVING AN EPISODE ABOUT AN HOUR AGO WHERE HER O2 SATS DROPPED DID HER B/P. O2 SATS 89-90% CURRENTLY. PLACED BACK ON 2LPM/NC O2. WILL MONITOR.
--- NOTE | 2017-01-31 20:22 | NUR ---
YOUNG WOMAN AT BEDSIDE ASSISTED WITH GETTING UP TO BATHROOM. NOW BACK TO BED AND RECONNECTED CONTINUOUS CARDIAC MONITORING DEVICES. DOES WANT HER PAIN MEDS WITH NIGHT-TIME PILLS. WILL MONITOR.
--- NOTE | 2017-01-31 21:10 | NUR ---
2100 MEDS GIVEN. DID BACTROBAN OINTMENT TO NARES HERSELF. VISITOR AT BEDSIDE. PRN PAIN PILL GIVEN. WILL MONITOR.
--- NOTE | 2017-01-31 21:26 | NUR ---
REPORTING NAUSEA. IV ZOFRAN GIVEN PER REQUEST. WILL MONITOR.
--- NOTE | 2017-01-31 22:30 | NUR ---
REASSESSMENT COMPLETED. SEE ASSESSMENT FLOWSHEET. AWOKEN BY RESP THERAPY TO DO BREATHING TREATMENT AND I.S. ASSISTED WITH DISCONNECTED MONITORS TO GO USE THE BATHROOM. BACK TO BED. RECONNECTED TO MONITORS. DENIES NEEDS AT THIS TIME. WILL MONITOR.
[2017-02-01] VITALS (10 sets, daily range): BP systolic 114–142; BP diastolic 64–93
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
--- NOTE | 2017-02-01 00:40 | NUR ---
IV PROTONIX GIVEN. DOES WANT HER PRN PAIN MEDS WHEN SHE CAN HAVE THEM. REPORTS PAIN A 9/10 TO INCISION, RT LEG AND HER CHRONIC BACK PAIN. WILL GIVE WHEN TIME. WILL MONITOR.
--- NOTE | 2017-02-01 01:01 | NUR ---
PAIN PILL GIVEN. UPON ENTERING EYES CLOSED. AWOKE EASILY. WILL MONITOR.
--- NOTE | 2017-02-01 02:00 | NUR ---
B/P CUFF WOKE HER UP. RETOOK PRESSURE. COKE GIVEN PER REQUEST. INFORMED OF BREATHING TREATMENT TO SOON START. VERBALIZED UNDERSTANDING. WILL MONITOR.
--- NOTE | 2017-02-01 03:09 | NUR ---
REASSESSMENT COMPLETED. SEE ASSESSMENT FLOWSHEET. REPLACED O2 SENSOR ONTO FINGER. NO NEW ACUTE DISTRESS NOTED. WILL MONITOR.
--- NOTE | 2017-02-01 04:20 | NUR ---
PRETTY TECHMahesh AT BEDSIDE TO TAKE TO XRAY DEPT FOR PA & LAT. AMBULATED PER SELF TO WHEELCHAIR. DENIES TO HAVE O2 ON HER AT THIS TIME. LINENS CHANGED TO BEDDING WHILE GONE. ONCE BACK IN ROOM. BACK TO BED AND RECONNECTED TO MONITORING EQUIPMENT. ANOTHER COKE GIVEN PER REQUEST. LEFT ON ROOM AIR BRIEFLY. O2 SATS WAS 87% ON ROOM AIR. PLACED BACK ONTO O2 @ 1LPM/NC. WILL MONITOR.
--- NOTE | 2017-02-01 06:00 | NUR ---
EYES CLOSED. AM LABS DRAWN FROM LEFT SC CVL. HAD TO FLUSH WITH SALINE TO GET IT TO DRAW. ASKED IF I WAS GIVING HER SOMETHING THAT WOULD EFFECT HER HEART. EXPLAINED IT WAS JUST SALINE AND ASKED IF SHE COULD TASTE THE METALLIC TASTE IN HER MOUTH. REPORTED SHE COULD. 0615: OUTPATIENT INTERVIEWING CLERK LIGHT. NEEDING TO GET UP TO USE COMMODE. DISCONNECTED FROM CONTINUOUS CARDIAC MONITORING. BACK FROM BATHROOM AND ATTEMPTED TO RECONNECT AND GOT UP AND SAID " I NEED SOMETHING TO DRINK". ASKED WHAT SHE WOULD LIKE AND CONTINUED TO WALK OUT OF HER PATIENT ROOM INTO THE HALLWAY, FRUSTRATED AND NOT WANTING ME TO TOUCH HER. BACK TO ROOM, WANTING TO GO TO E.R. BECAUSE WE WON'T HELP HER. REPORTS CHEST "CLINCHING". OFFERED EKG. DOES NOT WANT ME TO TOUCH HER. INFORMED HER OF PROTOCOL. NOT HAPPY WITH ANSWER. WILL CALL 911. CHARGE NURSE, ELIZ CALLED FOR REINFORCEMENTS. 0630: SPOKE WITH [id number] AND INFORMED ABOUT CHAIN OF EVENTS. WILL COME UP HERE AFTER GETTING DRESSED. INFORMED PT OF SUCH. ELIZ RN TALKING WITH PATIENT. WANTING PAIN MEDS. PAIN MEDS GIVEN TO ELIZ TO GIVE HER.
[2017-02-01 06:08] LABS: HEMATOCRIT 28.7 % (36.0-48.0); HEMOGLOBIN 9.4 g/dL (12-16); MCH 30.7 pg (26.0-34.0); MCHC 32.8 g/dL (31.0-37.0); MCV 93.8 fL (80.0-100.0); MEAN PLATELET VOLUME 10.4 fL (7.4-10.4); RBC 3.06 10x6/uL (4.00-5.40); RDW 14.6 % (11.5-14.5); WBC 8.6 10x3/uL (4.8-10.8)
[2017-02-01 06:37] LABS: ALBUMIN 2.5 g/dL (3.4-5.0); ANION GAP 7.9 mmol/L (8-16); BILIRUBIN - TOTAL 0.7 mg/dL (0.2-1.3); CALCIUM 8.3 mg/dL (8.5-10.1); CARBON DIOXIDE 32.3 mmol/L (21.0-32.0); CREATININE - SERUM 0.9 mg/dL (0.6-1.3); POTASSIUM - SERUM 3.2 mmol/L (3.5-5.1); PROTEIN - SERUM 5.3 g/dL (6.4-8.2)
--- NOTE | 2017-02-01 07:00 | NUR ---
REPORT GIVEN TO TIMOTHY RECINOS.
--- NOTE | 2017-02-01 07:20 | NUR ---
ORAL CARE DONE WITH PERIDEX
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
[2017-02-01 07:30] LABS: CKMB 3.2 U/L (0.0-3.6); CREATINE KINASE 114 UL (21-215)
[2017-02-01 07:32] LABS: TROPONIN-I 0.425 ng/mL (0.000-0.060)
--- NOTE | 2017-02-01 07:50 | NUR ---
FAMILY AT BEDSIDE REQUESTING UPDATE ON PT. VERBALLY VERIFIED WITH PT CONSENT TO DISCUSS MEDICAL CARE WITH FAMILY. PT AGREES. UPDATE GIVEN.
--- NOTE | 2017-02-01 09:26 | NUR ---
ATTEMPTED TO WEAN PT'S O2 OFF. AT 1L PT O2 SAT 95-96%. WHEN PLACED ON ROOM AIR PT APPEARS TO BE HOLDING HER BREATH UNTIL O2 SAT DECREASES TO 88%. WHEN PT TALKING TO FAMILY ON ROOM AIR O2 SAT IS 92-94% PLACED ON 0.5L O2 NC.
--- NOTE | 2017-02-01 11:10 | NUR ---
PT STARTS YELLING OUT "WHAT DID YOU SAY" WHEN ENTERING ROOM PT PARANOID ABOUT CONVERSATION HAPPENING OUT IN HALLWAY. REASSURED PT THAT CONVERSATION HAS NOTHING TO DO WITH HER.
[2017-02-01] MEDS ORDERED: HEMOCYTE PLUS C1 CAP PO (11:53)
--- NOTE | 2017-02-01 12:11 | NUR ---
PERSONNEL RESEARCH SCIENTIST TRACY DELIVERED HOME PAIN MEDICATION AND RETRIEVED MEDICATIONS FROM [facility]. DR. LUIS WITNESSED DELIVERY OF PT'S HOME MEDICATIONS TO PT.
--- NOTE | 2017-02-01 12:41 | NUR ---
LEFT CVL DC'D PER ORDER. MANUAL PRESSURE APPLIED TIMES 5 MINUTES. CLEAR DRESSING APPLIED. PT INSTRUCTED TO REMAIN WITH HEAD AT 15 DEGREES FOR 15 MINUTES. NO S/SX OF BLEEDING OR HEMATOMA NOTED.
--- NOTE | 2017-02-01 13:10 | NUR ---
DC INSTRUCTIONS REVIEWED WITH PT AND FAMILY. NO QUESTIONS. PAPERWORK SIGNED.
--- NOTE | 2017-02-01 13:15 | NUR ---
PT IN BATHROOM GETTING DRESSED. TAKING HOME PAIN MEDICATIONS WITH ASSISTANCE OF FEMALE FAMILY MEMBER.
--- NOTE | 2017-02-01 13:25 | NUR ---
PT ASSISTED OUT TO CAR VIA WHEELCHAIR WITH ALL PERSONAL BELONGINGS AND ROOM BEING CHECKED BY FAMILY MEMBERS. PT DC'D HOME.
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
== END 2017-02-01 15:16 | disposition home or self-care (01) | DRG 236 ==
LOC: D.CVICU 08:35 → D.SDCHOLD 01-27 07:30 → D.CVICU 01-27 07:51
PROVIDERS: ADMIT Internal Medicine Cardiovascular Disease
PROC: 021009W Bypass Coronary Artery, One Artery from Aorta with Autologous Venous Tissue, Open Approach (ICD-10-PCS; 2017-01-27)
PROC: 06BP0ZZ Excision of Right Saphenous Vein, Open Approach (ICD-10-PCS; 2017-01-27)
PROC: 5A1221Z Performance of Cardiac Output, Continuous (ICD-10-PCS; 2017-01-27)
PROC: B245ZZ4 Ultrasonography of Left Heart, Transesophageal (ICD-10-PCS; 2017-01-27)
PROC: 02100AC Bypass Coronary Artery, One Artery from Thoracic Artery with Autologous Arterial Tissue, Open Approach (ICD-10-PCS; principal; 2017-01-27 07:30)
DX: I25.110 Atherosclerotic heart disease of native coronary artery with unstable angina pectoris (principal); D62 Acute posthemorrhagic anemia; E78.5 Hyperlipidemia, unspecified; G89.4 Chronic pain syndrome; R00.0 Tachycardia, unspecified; N18.3 Chronic kidney disease, stage 3 (moderate); F17.200 Nicotine dependence, unspecified, uncomplicated

== ENCOUNTER 2017-02-05 14:06 | Emergency (ER) | payer MEDICARE ==
[2017-01-27 13:03] VITALS: BMI 22.2
[~2017-02-05 14:06] MED LIST changes: +HEMOCYTE PLUS C1 CAP PO; +VITAMIN D250000 UNIT PO; +ZOFRAN ODT4 MG/UDTAB PO
[2017-02-05 14:41] LABS: BASOPHILS 0.2 % (0-2); EOSINOPHILS 2.6 % (0-7); HEMATOCRIT 31.7 % (36.0-48.0); HEMOGLOBIN 10.6 g/dL (12-16); IMMATURE GRANULOCYTES 0.2 % (0-5); LYMPHOCYTES 19.8 % (15-50); MCH 31.4 pg (26.0-34.0); MCHC 33.4 g/dL (31.0-37.0); MCV 93.8 fL (80.0-100.0); MEAN PLATELET VOLUME 9.6 fL (7.4-10.4); MONOCYTES 7.1 % (2-11); NEUTROPHILS 70.1 % (40-80); RBC 3.38 10x6/uL (4.00-5.40); RDW 14.5 % (11.5-14.5); WBC 8.7 10x3/uL (4.8-10.8)
[2017-02-05 14:46] LABS: PLATELET COUNT 293 10x3/uL (130-400)
[2017-02-05 15:02] LABS: CARBON DIOXIDE 29.7 mmol/L (21.0-32.0); CHLORIDE - SERUM 102 mmol/L (98-107); HDL CHOLESTEROL 34 mg/dL (32-96); SODIUM 139 mmol/L (136-145)
[2017-02-05 15:30] LABS: ALBUMIN 2.4 g/dL (3.4-5.0); ALKALINE PHOSPHATASE 79 U/L (46-116); ALT (SGPT) 23 U/L (10-68); BILIRUBIN - TOTAL 0.45 mg/dL (0.2-1.3); CALC OSMOLALITY 275 mosm/kg (275-300); CALCIUM 7.9 mg/dL (8.5-10.1); CHOL - HDL RATIO 3.4 ratio (2.3-4.1); CHOLESTEROL, TOTAL 117 mg/dL (0-200); CKMB 1.9 U/L (0.0-3.6); CREATINE KINASE 58 UL (21-215); CREATININE - SERUM 0.9 mg/dL (0.6-1.3); GLUCOSE 101 mg/dL (74-106); LDL CHOLESTEROL 65 mg/dL (0-100); LDL-HDL RATIO 1.9 ratio (1.5-3.5); TRIGLYCERIDE 94 mg/dL (30-200); UREA NITROGEN 6 mg/dL (7-18); eGFR NON AFRICAN AMERICAN 69 mL/min (90-120)
[2017-02-05 15:39] LABS: POTASSIUM - SERUM 2.9 mmol/L (3.5-5.1); TROPONIN-I 0.098 ng/mL (0.000-0.060)
== END 2017-02-05 17:44 | disposition home or self-care (01) ==
LOC: D.ER 14:06
PROVIDERS: Emergency Medicine
DX: J18.9 Pneumonia, unspecified organism (principal); D64.9 Anemia, unspecified; E87.6 Hypokalemia; L89.92 Pressure ulcer of unspecified site, stage 2

== ENCOUNTER → 2017-02-20 09:23 | Outpatient (CLI) | payer MEDICARE ==
[2017-01-27 13:03] VITALS: BMI 22.2
[2017-02-20 09:50] LABS: HEMATOCRIT 38.3 % (36.0-48.0); HEMOGLOBIN 12.3 g/dL (12-16); MCHC 32.1 g/dL (31.0-37.0); MCV 96.5 fL (80.0-100.0); MEAN PLATELET VOLUME 10.2 fL (7.4-10.4); RBC 3.97 10x6/uL (4.00-5.40); WBC 7.5 10x3/uL (4.8-10.8)
[2017-02-20 10:16] LABS: ALBUMIN 3.6 g/dL (3.4-5.0); ANION GAP 10.6 mmol/L (8-16); BILIRUBIN - TOTAL 0.3 mg/dL (0.2-1.3); CALCIUM 9.2 mg/dL (8.5-10.1); CARBON DIOXIDE 29.1 mmol/L (21.0-32.0); CREATININE - SERUM 1.2 mg/dL (0.6-1.3); POTASSIUM - SERUM 3.7 mmol/L (3.5-5.1); PROTEIN - SERUM 7.9 g/dL (6.4-8.2)
== END | disposition home or self-care (01) ==
LOC: D.LAB 09:23
PROVIDERS: Internal Medicine Cardiovascular Disease
DX: J91.8 Pleural effusion in other conditions classified elsewhere (principal); D64.9 Anemia, unspecified

== ENCOUNTER → 2017-07-04 08:41 | Outpatient (CLI) | payer MEDICARE ==
[~2017-07-04] VITALS: Ht 167.6 cm; Wt 58.6 kg
--- NOTE | ~2017-07-04 | OP ---
PATIENT NAME: ARTUR LUZ MEDICAL RECORD: [id number] :61 LOCATION:D.CAT ADMISSION DATE: SURGEON: LAURA HIRSCH MD DATE OF OPERATION: 07/04/2017 PROCEDURES: 1. PTCA stent RCA through vein graft. 2. PTCA stent LAD diagonal. 3. Left heart catheterization. 4. Selective coronary angiography. 5. Vein graft angiography. 6. LOW angiography. 7. Intravascular ultrasound. INDICATION: Angina and coronary artery disease. PROCEDURE IN DETAIL: After informed consent was obtained and after detailed explanation of risks, benefits as well as alternative therapies, the patient elected to proceed with angiogram and angioplasty. The right femoral area was prepped and draped in normal sterile fashion. Right femoral artery was cannulated via modified Seldinger technique with placement of 6-Georgian sheath. All catheters exchanged through this sheath. FINDINGS: The left ventriculogram was performed in standard 30-degree AMANDA view, reveals good cardiac wall motion throughout all segments. Overall ejection fraction estimated at 60%. SELECTIVE CORONARY ANGIOGRAPHY: 1. Left main is with no significant angiographic disease. 2. Left anterior descending has previously placed stents, these are widely patent. The diagonal has previously placed stents; however, there is 80% stenosis after the previously placed stents. 3. The left circumflex has moderate irregularities, but no flow-limiting stenosis. 4. Right coronary is totally occluded. 5. Vein graft to the right coronary is widely patent; however, intravascular ultrasound reveals 70% stenosis at the anastomosis which is the distal anastomosis. PTCA stent of the RCA and LAD diagonal: The RCA was addressed with a 3.0 x 12, the LAD diagonal with a 2.5 x 8 both [place] stents. Result was 0% residual stenosis. OVERALL IMPRESSION: Successful PTCA stent of the RCA and LAD diagonal going from 70% to 80% initial stenosis to 0% residual. TRANSINT:[id number] Voice Confirmation ID: [id number] DOCUMENT ID: [id number] OPERATIVE REPORT [id number] LUZARTUR LAURA HIRSCH MD at 1006 CC: [id number] DICTATION DATE: 07/04/17 1325 CABLE SPLICER ASSISTANT: 07/04/17 1353 DEP CLI 07/04/17 [place] [address]
--- NOTE | ~2017-07-04 | HEMODYNAMI ---
PATIENT:ARTUR LUZ MEDICAL RECORD: [id number] : 61 LOCATION:D.CAT ADMISSION DATE: 07/04/17 Generatedon:07/04/201713:16 Patient name: ARTUR LUZ Patient #: [id number] SSN: DO B: 1965 Date of study: 07/04/2017 Page: Of Hemodynamic Procedure Report Patient Data Patient Demographics Procedure consent was obtained First Name: ARTUR Gender: Female Last Name: NATTY : 1965 [facility] Initial: D Age: 52 year(s) Patient #: [id number] Race: Additional ID: [id number] Contact details [address]: [address] [place] [address] [place] State: [place] City: [place] Zip code: [address] Past Medical History History of disease Date Diagnosis Comments CAD Allergies Allergen Reaction Date Comments Reported Other allergy 04/21/2015 Morphine, PCN, Stadol Other allergy 04/26/2016 stadol,pcn,morphine Penicillins 11/08/2016 Morphine 11/08/2016 Other allergy 01/20/2017 morphine, pcn, stadol Other allergy 07/04/2017 MORPHINE, PCN, STADOL Admission Admission Data Admission Date: 07/04/2017 Admission Time: 8:41 Lab Results Lab Result Date: 07/04/2017 Lab Result Time: 0:00 Biochemistry Name Units Result Min Max BUN mg/dl 5 -*(----)-- 7 18 Creatinine mg/dl 1.2 --(---*)-- 0.6 1.3 CBC Name Units Result Min Max Hemoglobin g/dl 14.3 --(*---)-- 13.5 17.5 Procedure Procedure Types Cath Procedure Diagnostic Procedure [facility] w/Coronaries w/Grafts FFR/IVUS Intra-Coronary IVUS Initial PCI Procedure Coronary Stent Coronary Stent Initial AMI/SVG/DATA ENTRY MANAGER PTCA or Stent SVG-BMS/PERI Initial Procedure Description Procedure Date Procedure Date: 07/04/2017 Procedure Start Time: 12:47 Procedure End Time: 13:16 Procedure Staff Name Function Jc Rice MD Performing Physician Jan Fairbanks RT Monitor Regina Butler RT Scrub Tono Bates RN Nurse Procedure Data Cath Procedure Fluoroscopy Diagnostic fluoroscopy Total fluoroscopy Time: 7.4 time: 7.4 min min Diagnostic fluoroscopy Total fluoroscopy dose: 869 dose: 869 mGy mGy Contrast Material Contrast Material Type Amount (ml) Isovue 300 132 Entry Location Entry Primary Successful Side Size Upsize Upsize Entry Closure Succes sful Closure Location (Fr) 1 (Fr) 2 (Fr) Remarks Device Remarks Femoral Right 5 Fr 6 Fr Exoseal artery Short Estimated blood loss: 10 ml Diagnostic catheters Device Type Used For End Catheter Placement MULTIPACK Pigtail 5 Fr Procedure catheter MULTIPACK JL 4.0 5Fr Procedure catheter MULTIPACK 3DRC 5Fr Procedure catheter DIAGNOSTIC AR 2 MOD 5 Fr Procedure catheter ([id number]) Procedure Complications No complications Procedure Medications Medication Administration Route Dosage 0.9% NaCl I.V. 100 ml/hr Oxygen etCO2 Nasal cannula 2 l/min Heparin Flush Bag added to field 2 bags (1000units/500ml NS) Lidocaine 2% added to field 20 Versed I.V. 2 mg Fentanyl I.V. 100 mcg Fentanyl I.V. 100 mcg Versed I.V. 2 mg Versed I.V. 1 mg Heparin Bolus I.V. 4000 units Versed I.V. 1 mg Fentanyl I.V. 50 mcg Plavix P.O. 75 mg Fentanyl I.V. 50 mcg Hemodynamics Rest HGB: 14.3 (g/dl) Heart Rate: 69 (bpm) Pressure Samples Time Site Value (mmHg) Purpose Heart Use Rate(bpm) 12:56 AO 91/44(67) Snapshot 73 Snapshots Pre Cath Intra NCS Post Cath Vital Signs Time Heart Resp SPO2 etCO2 NIBP Rhythm Pain Sedation Rate (ipm) (%) (mmHg) (mmHg) Status Level (bpm) 12:50:16 68 15 96 54 93/57(69) NSR 0 (11) 10(A) , No pain 12:55:23 74 17 97 53.2 93/58(72) NSR 0 (11) 10(A) , No pain 12:59:58 80 18 95 42.8 86/52(63) NSR 0 (11) 10(A) , No pain 13:04:30 74 12 98 47.2 88/47(67) NSR 0 (11) 10(A) , No pain 13:09:03 76 14 98 51 89/52(69) NSR 0 (11) 10(A) , No pain 13:13:33 76 8 98 46.5 101/58(75) NSR 0 (11) 10(A) , No pain Medications Time Medication Route Dose Verified Delivered Reason Notes Effectiveness by by 12:33:53 0.9% NaCl I.V. 100 Tono Tono Per physician ml/hr Jana Bates RN RN 12:34:02 Oxygen etCO2 2 Tono Tono Per physician Nasal l/min Jana Bates cannula RN RN 12:34:14 Heparin Flush added 2 Tono Tono used for Bag to bags Jana Bates procedure (1000units/500ml field RN RN NS) 12:34:25 Lidocaine 2% added 20ml Tono Tono for local to vial Lorigan Jana anesthetic field RN RN 12:44:13 Versed I.V. 2 mg Tono Tono for sedation Jana Bates RN RN 12:44:22 Fentanyl I.V. 100 Tono Tono for sedation mcg Jana Bates RN RN 12:46:09 Fentanyl I.V. 100 Tono Tono for sedation mcg Jana Bates RN RN 12:46:16 Versed I.V. 2 mg Tono Tono for sedation Jana Bates RN RN 12:53:30 Versed I.V. 1 mg Tono Tono for sedation Jana Bates RN RN 12:55:53 Heparin Bolus I.V. 4000 Tono Tono for units Jana Bates anticoagulation RN RN 12:56:03 Versed I.V. 1 mg Tono Tono for sedation Jana Bates RN RN 13:02:32 Fentanyl I.V. 50 Tono Tono for sedation mcg Jana Bates RN RN 13:10:33 Plavix P.O. 75 mg Tono Tono for Jana Bates antiplatelet RN RN therapy 13:10:39 Fentanyl I.V. 50 Tono Tono for sedation mcg Jana Bates RN professor criminal justice Log Time Note 12:12:32 Signed procedure consent form obtained from patient. 12:12:35 Time tracking: Regular hours (M-F 7:00 - 5:00) 12:12:39 Plan of Care:Hemodynamics will remain stable., Cardiac rhythm will remain stable., Comfort level will be maintained., Respiratory function will remain adequate., Patient/ family verbilizes understanding of procedure., Procedure tolerated without complication., Recovers from procedure without complications.. 12:12:57 Patient allergic to Other allergyMORPHINE, PCN, STADOL 12:15:44 Procedure type changed to Cath procedure, Diagnostic procedure, LHC, LHC w/Coronaries w/Grafts, FFR/IVUS, Intra-Coronary IVUS Initial, PCI procedure, Coronary Stent, Coronary Stent Initial, AMI/SVG/DATA ENTRY MANAGER PTCA or Stent, SVG-BMS/PERI Initial 12:17:56 Lab Result : BUN 5 mg/dl 12:17:56 Lab Result : Creatinine 1.2 mg/dl 12:17:56 Lab Result : Hemoglobin 14.3 g/dl 12:21:11 Jan ARRIAGA(R) sent for patient. Start room use. 12:28:41 Patient received from Pre/Post Procedure Room to CCL 1 Alert and oriented. Tansferred to table in Supine position. 12:28:44 Warm blankets applied, and terese hugger turned on for patient comfort. 12:28:45 Correct patient and procedure confirmed by team. 12:28:46 ECG and BP/O2 sat monitors applied to patient. 12:33:53 0.9% NaCl 100 ml/hr I.V. was administered by Tono Bates RN; Per physician; 12:34:02 Oxygen 2 l/min etCO2 Nasal cannula was administered by Tono Bates RN; Per physician; 12:34:14 Heparin Flush Bag (1000units/500ml NS) 2 bags added to field was administered by Tono Bates RN; used for procedure; 12:34:25 Lidocaine 2% 20ml vial added to field was administered by Tono Bates RN; for local anesthetic; 12:40:08 Vital chart was started 12:40:13 Baseline sample Acquired. 12:40:17 Rhythm: sinus rhythm 12:40:19 Full Disclosure recording started 12:41:21 H&P Date Dictated: 07/03/2017 Within 30 days and on chart., H&P Addendum completed by physician on day of procedure. (MUST COMPLETE FOR ALL OUTPATIENTS). 12:41:31 Pre-procedure instructions explained to patient. 12:41:32 Pre-op teaching completed and patient verbalized understanding. 12:41:36 Family in waiting room. 12:41:38 Patient NPO since Midnight. 12:41:40 Is the patient allergic to Iodine/contrast media? No. 12:41:42 Is patient on blood thinner?Yes 12:41:45 ACC The patient was administered the following blood thiners within the last 24 hours: ACCPlavix 12:41:47 Patient diabetic? No. 12:41:57 Previous problem with sedation/anesthesia? No ? 12:41:58 Snore? Yes 12:41:59 Sleep apnea? No 12:42:00 Deviated septum? No 12:42:01 Opens mouth fully? Yes 12:42:02 Sticks out tongue? Yes 12:42:11 Airway obstruction? No ? 12:42:31 Dentures? No ? 12:42:34 Pre procedure: right dorsailis pedis pulse 1+ Palpable, but thready & weak; easily obliterated 12:43:08 Patient pain scale 0/10 ?. 12:43:13 IV patent on arrival in left forearm with 0.9% NaCl at O. 12:43:15 Lab results completed and on chart. 12:43:36 Right groin area was prepped with chlora-prep and draped in sterile fashion 12:43:37 Alarms reviewed by R. N. 12:43:38 Sharps counted by scrub and verified by R.N. 12:43:39 --------ALL STOP TIME OUT------ 12:43:40 Final Timeout: patient, procedure, and site verified with staff and physician. All members of the team are in agreement. 12:43:44 Right groin site verified by team. 12:43:46 Physical assessment completed. ASA score P 2 - A patient with mild systemic disease as per Jc Rice MD. 12:43:50 Sedation plan: IV Moderate Sedation Medication:Versed, Fentanyl 12:44:13 Versed 2 mg I.V. was administered by Tono Bates RN; for sedation; 12:44:22 Fentanyl 100 mcg I.V. was administered by Tono Bates RN; for sedation; 12:45:58 Use device set Femoral Dx 12:46:00 PERCUTANEOUS ENTRY 19GA needle opened to sterile field. 12:46:01 Tegaderm 4 x 4 (1626W) opened to sterile field. 12:46:07 ACIST Manifold (79168) opened to sterile field. 12:46:08 ACIST Hand Control (91226) opened to sterile field. 12:46:09 Fentanyl 100 mcg I.V. was administered by Tono Bates RN; for sedation; 12:46:11 ACIST Syringe (50941) opened to sterile field. 12:46:12 Bag Decanter () opened to sterile field. 12:46:12 Medline Cath Pack ([id number]) opened to sterile field. 12:46:13 DIAGNOSTIC WIRE .035 260cm J wire (629333) opened to sterile field. 12:46:14 DIAGNOSTIC Multipack 5Fr catheter set (AY5428) opened to sterile field. 12:46:16 Versed 2 mg I.V. was administered by Tono Bates RN; for sedation; 12:46:16 SHEATH Prelude 5Fr 0.035 (NSL-4M-09-035) opened to sterile field. 12:47:12 Procedure started. 12:47:16 Local anesthetic to right femoral artery with Lidocaine 2% by Jc Rice MD.INITIAL ACCESS ONLY 12:47:34 A 5 Fr sheath was inserted into the Right Femoral artery 12:47:41 A MULTIPACK Pigtail 5 Fr catheter was advanced over the wire and used for Procedure. 12:48:07 LV angiography performed. 12:48:09 LV gram done using AMANDA 12:48:15 EF : 50 % 12:48:18 Injector settings: Ml/sec: 10, Volume: 20, 12:48:20 Catheter removed. 12:48:25 A MULTIPACK JL 4.0 5Fr catheter was advanced over the wire and used for Procedure. 12:49:07 LCA angiography performed. 12:49:37 Catheter removed. 12:49:42 Use device set TAUTH PCI 12:49:52 SHEATH Prelude 6Fr 0.035 (DOM-2M-65-035) opened to sterile field. 12:49:54 CHOICE PT Extra Support 182cm wire ([id number]) opened to sterile field. 12:49:56 INFLATOR Merit BasixCompak (CW1598) opened to sterile field. 12:50:08 A MULTIPACK 3DRC 5Fr catheter was advanced over the wire and used for Procedure. 12:51:11 LOW closed. 12:51:15 RCA angiography performed. 12:52:26 Catheter removed. 12:52:32 A DIAGNOSTIC AR 2 MOD 5 Fr catheter ([id number]) was advanced over the wire and used for Procedure. 12:52:43 SVG to RCA angiography performed. 12:52:58 Catheter removed. 12:53:30 Versed 1 mg I.V. was administered by Tono Bates RN; for sedation; 12:53:54 Crab Orchard [place] Eagleye IVUS Catheter (37136Q) opened to sterile field. 12:54:04 GUIDE 6FR AR 2.0 catheter ([id number]) opened to sterile field. 12:54:26 Sheath upsized to a 6 Fr Short. 12:54:59 6 Fr AR 2 guide catheter was inserted over the wire 12:55:34 Choice PT XS wire advanced. 12:55:53 Heparin Bolus 4000 units I.V. was administered by Tono Bates RN; for anticoagulation; 12:56:03 Versed 1 mg I.V. was administered by Tono Bates RN; for sedation; 12:56:35 Wire advanced across lesion. 12:56:48 IVUS catheter advanced over wire. 12:57:34 IVUS pass to RCA lesion performed. 12:57:44 IVUS catheter removed over wire. 13:00:54 Place stent Inflation Number: 1 A KATHRYN RX 3.0 x 12 stent ([id number]) was prepped and advanced across the Aorta Right -> Dist RCA. The stent was deployed at 17 SHERRI for 0:10 (min:sec). 13:01:06 Stent catheter was removed intact over wire. 13:01:07 Wire removed. 13:01:08 Guide catheter removed. 13:01:21 GUIDE 6FR XBLAD 3.5 SH catheter ([id number]) opened to sterile field. 13:01:38 6 Fr XBLAD 3.5 SH guide catheter was inserted over the wire 13:01:50 Choice PT XS wire advanced. 13:02:32 Fentanyl 50 mcg I.V. was administered by Tono Bates RN; for sedation; 13:03:06 Wire advanced across lesion. 13:05:24 Inflate balloon Inflation number: 1 A EUPHORA 2.0 x 12 Balloon ([id number]) was prepped and advanced across the 1st Diag, then inflated to 17 SHERRI for 0:10 (min:sec). 13:05:47 Balloon removed over the wire. 13:08:13 Place stent Inflation Number: 2 A KATHRYN RX 2.5 x 08 stent ([id number]) was prepped and advanced across the 1st Diag. The stent was deployed at 11 SHERRI for 0:10 (min:sec). 13:08:34 Stent catheter was removed intact over wire. 13:08:35 Wire removed. 13:08:36 Guide catheter removed. 13:09:00 EXOSEAL 6Fr (EX600) opened to sterile field. 13:09:14 Sheath removed intact; hemostasis achieved with Exoseal to the Right Femoral artery. 13:09:17 Procedure ended.(Physican Out) 13:10:33 Plavix 75 mg P.O. was administered by Tono Bates RN; for antiplatelet therapy; 13:10:39 Fentanyl 50 mcg I.V. was administered by Tono Bates RN; for sedation; 13:10:39 Fluoroscopy time 07.40 minutes. 13:10:43 Fluoroscopy dose: 869 mGy 13:10:43 Flurop Dose total: 869 13:10:48 Contrast amount:Isovue 300 132ml. 13:10:49 Sharps counted by scrub and verified by R.N. 13:10:51 Insertion/operative site no bleeding no hematoma. 13:10:54 Post-op/insertion site Right Femoral artery dressed using a 4 x 4 and Tegaderm. 13:10:56 Post Procedure Pulses reassessed and unchanged 13:10:58 Post-procedure physical assessment completed. ASA score P 2 - A patient with mild systemic disease as per Jc Rice MD. 13:11:01 Post procedure rhythm: unchanged. 13:11:04 Estimated blood loss: 10 ml 13:11:05 Post procedure instruction explained to patient.Patient verbalizes understanding. 13:11:06 Patient needs reinforcement of post procedure teaching. 13:11:41 Procedure and supply charges have been captured, reviewed, submitted and are correct. 13:11:44 Procedure Complication : No complications 13:16:01 Vital chart was stopped 13:16:01 See physician's report for complete and final results. 13:16:05 Report given to Pre/Post Procedure Room. 13:16:07 Patient transfered to Pre/Post Procedure Room with Stretcher. 13:16:09 Procedure ended. 13:16:09 Full Disclosure recording stopped 13:16:18 End room use (Document Last) Intervention Summary Intervention Notes Time ActionType Lesion and Equipment Used Action# Pressure Duration Attributes 13:00:54 Place stent Aorta Right KATHRYN RX 3.0 x 1 17 00:10 -> Dist RCA 12 stent ([id number]) 13:05:24 Inflate 1st Diag EUPHORA 2.0 x 1 17 00:10 balloon 12 Balloon ([id number]) 13:08:13 Place stent 1st Diag KATHRYN RX 2.5 x 2 11 00:10 08 stent ([id number]) Device Usage Item Name Manufacture Quantity Catalog Number Hospital Part Current Minimal Lot# / Charge Number Stock Stock Serial# Code PERCUTANEOUS Cook Medical 1 [id number] 803179 738011 5 ENTRY 19GA needle Tegaderm 4 x 4 3M 1 1626W 179688 338486 662453 5 (1626W) ACIST Manifold Acist 1 79273 001000 256659 190826 5 (00206) Medical Systems Inc ACIST Hand Acist 1 08461 552269 481608 082619 5 Control (11786) [employer] Inc ACIST Syringe Acist 1 33434 377320 179459 432346 20 (91436) Medical Systems Inc Bag Decanter Microtek 1 2002S 613163 45941 142151 5 (2002S) Medical Inc. Medline Cath Cardinal 1 [id number] 288390 27811 592578 5 Pack Health ([id number]) DIAGNOSTIC WIRE St Lamine 1 195150 397011 481848 179404 30 .035 260cm J wire (349323) DIAGNOSTIC Cardinal 1 HH2686 387688 46861 558343 30 Multipack 5Fr Health catheter set (SY2723) SHEATH Prelude Merit 1 IKY-4G-98-035 086941 539528 125208 5 5Fr 0.035 Medical (RME-7A-18-035) MULTIPACK Cardinal 1 840901 5 Pigtail 5 Fr Health catheter MULTIPACK JL Cardinal 1 973005 5 4.0 5Fr Health catheter SHEATH Prelude Merit 1 ZWQ-1H-88-35 118189 3595861 310020 5 6Fr 0.035 Medical (ZMW-3X-57-035) CHOICE PT Extra Elmira 1 [id number] 817886 028984 163710 5 Support 182cm Scientific wire ([id number]) INFLATOR Merit Merit 1 GQ7106 362676 607362 708308 15 BasixRosetta GenomicsohFSV Payment Systems Medical (NZ6019) MULTIPACK 3DRC Cardinal 1 226942 5 5Fr catheter Health DIAGNOSTIC AR 2 Cardinal 1 [id number] 321568 780785 908218 20 MOD 5 Fr Health catheter (413550Z) Cr[place]chard Crab [place]chard 1 [id number] 234586 378040 364344 8 [place] IVUS Catheter (19616Q) GUIDE 6FR AR Medtronic 1 [id number] 273411 67969 905921 1 2.0 catheter (KX2SA31) KATHRYN RX 3.0 x Medtronic 1 [id number] 715701 6438446 195424 5 [id number] 12 stent ([id number]) GUIDE 6FR XBLAD Cardinal 1 [id number] 568695 886440 849685 3 3.5 SH catheter Health (46809692) EUPHORA 2.0 x Medtronic 1 [id number] 580687 475711 150185 5 [id number] 12 Balloon (YVI3578G) KATHRYN RX 2.5 x Medtronic 1 [id number] 551459 5522911 291097 5 [id number] 08 stent ([id number]) EXOSEAL 6Fr Cardinal 1 EX600 323130 093841 772905 10 (EX600) Health Signature Audit Jenkins Stage Time Signature Unsigned Intra-Procedure 07/04/2017 Jan Fairbanks 1:16:38 PM RT(R) Signatures Monitor : Jan Fairbanks RT Signature : Date : Time : [facility] [address] [place] [address]
[2017-07-04 09:18] VITALS: BP 116/67; Ht 167.6 cm; Wt 58.6 kg
[2017-07-04 09:33] LABS: BASOPHILS 0.1 % (0-2); EOSINOPHILS 0.6 % (0-7); HEMATOCRIT 41.9 % (36.0-48.0); HEMOGLOBIN 14.3 g/dL (12-16); LYMPHOCYTES 22.8 % (15-50); MCH 33.2 pg (26.0-34.0); MCHC 34.1 g/dL (31.0-37.0); MCV 97.2 fL (80.0-100.0); MEAN PLATELET VOLUME 9.9 fL (7.4-10.4); MONOCYTES 5.6 % (2-11); NEUTROPHILS 70.9 % (40-80); PLATELET COUNT 208 10x3/uL (130-400); RBC 4.31 10x6/uL (4.00-5.40); RDW 13.2 % (11.5-14.5); WBC 7.1 10x3/uL (4.8-10.8)
[2017-07-04 09:38] LABS: ANION GAP 7.7 mmol/L (8-16); CALCIUM 8.9 mg/dL (8.5-10.1); CARBON DIOXIDE 31.7 mmol/L (21.0-32.0); CREATININE - SERUM 1.2 mg/dL (0.6-1.3); POTASSIUM - SERUM 3.4 mmol/L (3.5-5.1)
== END | disposition home or self-care (01) ==
LOC: D.CATH 08:41
PROVIDERS: Internal Medicine Interventional Cardiology
DX: I25.119 Atherosclerotic heart disease of native coronary artery with unspecified angina pectoris (principal); I10 Essential (primary) hypertension; E78.5 Hyperlipidemia, unspecified; Z01.812 Encounter for preprocedural laboratory examination
CPT/HCPCS: 93459; 92978; C9604; C9600

== ENCOUNTER → 2017-10-31 07:37 | Outpatient (CLI) | payer MEDICARE ==
[~2017-10-31] VITALS: Ht 167.6 cm; Wt 58.6 kg
--- NOTE | ~2017-10-31 | HEMODYNAMI ---
PATIENT:ARTUR LUZ MEDICAL RECORD: [id number] : 61 LOCATION:D.CAT ADMISSION DATE: 10/31/17 Generatedon:10/31/20179:57 Patient name: ARTUR LUZ Patient #: [id number] SSN: B: 1965 Date of study: 10/31/2017 Page: Of Hemodynamic Procedure Report Patient Data Patient Demographics Procedure consent was obtained First Name: ARTUR Gender: Female Last Name: NATTY : 1965 [facility] Initial: D Age: 52 year(s) Patient #: [id number] Race: Additional ID: [id number] Contact details [address]: [address] [place] [address] [place] State: [place] City: [place] Zip code: [address] Past Medical History History of disease Date Diagnosis Comments CAD Allergies Allergen Reaction Date Comments Reported Other allergy 04/21/2015 Morphine, PCN, Stadol Other allergy 04/26/2016 stadol,pcn,morphine Penicillins 11/08/2016 Morphine 11/08/2016 Other allergy 01/20/2017 morphine, pcn, stadol Other allergy 07/04/2017 MORPHINE, PCN, STADOL Other allergy 10/31/2017 MORPHINE, PCN, STADOL Admission Admission Data Admission Date: 10/31/2017 Admission Time: 7:37 Lab Results Lab Result Date: 10/31/2017 Lab Result Time: 0:00 Biochemistry Name Units Result Min Max BUN mg/dl 10 --(-*--)-- 7 18 Creatinine mg/dl 1.3 --(---*)-- 0.6 1.3 CBC Name Units Result Min Max Hemoglobin g/dl 14.4 --(*---)-- 13.5 17.5 Procedure Procedure Types Cath Procedure Diagnostic Procedure [facility] w/Coronaries FFR/IVUS Intra-Coronary IVUS Initial PCI Procedure Coronary Stent Coronary Stent Initial Peripheral Cath Diagnostic Procedure Abd/Extremity Extremities Left Upper Ext. Arteriogram Procedure Description Procedure Date Procedure Date: 10/31/2017 Procedure Start Time: 9:39 Procedure End Time: 9:56 Procedure Staff Name Function Jc Rice MD Performing Physician Aston Juárez RT Monitor Regina Butler RT Scrub Tono Bates RN Nurse Procedure Data Cath Procedure Fluoroscopy Diagnostic fluoroscopy Total fluoroscopy Time: 3.7 time: 3.7 min min Diagnostic fluoroscopy Total fluoroscopy dose: 337 dose: 337 mGy mGy Contrast Material Contrast Material Type Amount (ml) Isovue 300 66 Entry Location Entry Primary Successful Side Size Upsize Upsize Entry Closure Succes sful Closure Location (Fr) 1 (Fr) 2 (Fr) Remarks Device Remarks Femoral Right 5 Fr 6 Fr artery Short Diagnostic catheters Device Type Used For End Catheter Placement MULTIPACK Pigtail 5 Fr LV Angiography catheter MULTIPACK JL 4.0 5Fr Left Coronary catheter Angiography DIAGNOSTIC AR MOD 5Fr SVG Angiography Catheter ([id number]) MULTIPACK 3DRC 5Fr Multi-vessel catheter Angiography Procedure Complications No complications Procedure Medications Medication Administration Route Dosage 0.9% NaCl I.V. 100 ml/hr Oxygen etCO2 Nasal cannula 2 l/min Heparin Flush Bag added to field 2 bags (1000units/500ml NS) Lidocaine 2% added to field 20 Versed I.V. 2 mg Fentanyl I.V. 100 mcg Versed I.V. 2 mg Fentanyl I.V. 100 mcg Heparin Bolus I.V. 4000 units Fentanyl I.V. 100 mcg Hemodynamics Rest HGB: 14.4 (g/dl) Heart Rate: 59 (bpm) Snapshots Pre Cath Intra NCS Post Cath Vital Signs Time Heart Resp SPO2 etCO2 NIBP Rhythm Pain Sedation Rate (ipm) (%) (mmHg) (mmHg) Status Level (bpm) 9:33:16 56 16 100 43.5 108/63(79) NSR 0 (11) 10(A) , No pain 9:37:55 58 19 100 51 104/58(76) NSR 0 (11) 10(A) , No pain 9:42:34 61 17 99 57 89/52(70) NSR 0 (11) 10(A) , No pain 9:47:10 65 18 98 48.8 86/46(62) NSR 0 (11) 10(A) , No pain 9:51:45 65 15 99 53.3 98/55(65) NSR 0 (11) 10(A) , No pain Medications Time Medication Route Dose Verified Delivered Reason Notes Effectiveness by by 9:31:53 0.9% NaCl I.V. 100 Tono Tono Per physician ml/hr Jana Bates RN RN 9:32:03 Oxygen etCO2 2 Tono Tono Per physician Nasal l/min Jana aBtes cannula RN RN 9:32:14 Heparin Flush added 2 Tono Tono used for Bag to bags Lorcally Bates procedure (1000units/500ml field RN RN NS) 9:32:24 Lidocaine 2% added 20ml Tono Tono for local to vial Lorigan Jana anesthetic field RN RN 9:34:22 Versed I.V. 2 mg Tono Tono for sedation Jana Bates RN RN 9:34:31 Fentanyl I.V. 100 Tono Tono for sedation mcg Jana Bates RN RN 9:37:37 Versed I.V. 2 mg Tono Tono for sedation Jana Bates RN RN 9:37:43 Fentanyl I.V. 100 Tono Tono for sedation mcg Jana Bates RN RN 9:44:09 Heparin Bolus I.V. 4000 Tono Tono for units Lorigan Jana anticoagulation RN RN 9:49:18 Fentanyl I.V. 100 Tono Tono for sedation mcg Jana Bates RN program engagement director Log Time Note 9:16:34 Signed procedure consent form obtained from patient. 9:16:36 Time tracking: Regular hours (M-F 7:00 - 5:00) 9:16:39 Plan of Care:Hemodynamics will remain stable., Cardiac rhythm will remain stable., Comfort level will be maintained., Respiratory function will remain adequate., Patient/ family verbilizes understanding of procedure., Procedure tolerated without complication., Recovers from procedure without complications.. 9:16:47 H&P Date Dictated: 10/29/2017 Within 30 days and on chart., H&P Addendum completed by physician on day of procedure. (MUST COMPLETE FOR ALL OUTPATIENTS). 9:17:06 Patient allergic to Other allergyMORPHINE, PCN, STADOL 9:18:10 Regina Butler RT(R) sent for patient. Start room use. 9:31:53 0.9% NaCl 100 ml/hr I.V. was administered by Tono Lorigan RN; Per physician; 9:32:03 Oxygen 2 l/min etCO2 Nasal cannula was administered by Tono Bates RN; Per physician; 9:32:14 Heparin Flush Bag (1000units/500ml NS) 2 bags added to field was administered by Tono Bates RN; used for procedure; 9:32:20 Patient received from Pre/Post Procedure Room to CCL 1 Alert and oriented. Tansferred to table in Supine position. 9:32:21 Warm blankets applied, and terese hugger turned on for patient comfort. 9:32:22 Correct patient and procedure confirmed by team. 9:32:22 ECG and BP/O2 sat monitors applied to patient. 9:32:23 Baseline sample Acquired. 9:32:23 Vital chart was started 9:32:24 Lidocaine 2% 20ml vial added to field was administered by Tono Bates RN; for local anesthetic; 9:32:26 Rhythm: sinus rhythm 9:32:27 Full Disclosure recording started 9:32:28 Pre-procedure instructions explained to patient. 9:32:29 Pre-op teaching completed and patient verbalized understanding. 9:32:31 Family in patients room. 9:32:33 Patient NPO since Midnight. 9:32:36 Is the patient allergic to Iodine/contrast media? No. 9:32:39 Is patient on blood thinner?Yes 9:32:40 Patient diabetic? No. 9:32:42 If diabetic: On Metformin? No 9:32:43 ----Pre-sedation anethsthesia assessment.---- 9:32:45 Previous problem with sedation/anesthesia? No ? 9:32:46 Snore? Yes 9:32:47 Sleep apnea? No 9:32:48 Deviated septum? No 9:32:50 Opens mouth fully? Yes 9:32:51 Sticks out tongue? Yes 9:32:56 Airway obstruction? Yes COPD 9:32:59 Dentures? No ? 9:33:03 Pre procedure: right dorsailis pedis pulse 1+ Palpable, but thready & weak; easily obliterated 9:33:07 Patient pain scale 0/10 ?. 9:33:17 IV patent on arrival in left forearm with 0.9% NaCl at 10ml/hr. 9:33:39 Lab Result : Creatinine 1.3 mg/dl 9:33:39 Lab Result : BUN 10 mg/dl 9:33:39 Lab Result : Hemoglobin 14.4 g/dl 9:33:43 Lab results completed and on chart. 9:33:46 Right groin area was prepped with chlora-prep and draped in sterile fashion 9:33:47 Alarms reviewed by R. N. 9:33:47 Sharps counted by scrub and verified by R.N. 9:33:50 Physician arrived 9:33:51 --------ALL STOP TIME OUT------ 9:33:51 Final Timeout: patient, procedure, and site verified with staff and physician. All members of the team are in agreement. 9:33:54 Right groin site verified by team. 9:33:57 Physical assessment completed. ASA score P 2 - A patient with mild systemic disease as per Jc Rice MD. 9:34:01 Sedation plan: IV Moderate Sedation Medication:Versed, Fentanyl 9:34:22 Versed 2 mg I.V. was administered by Tono Bates RN; for sedation; 9:34:31 Fentanyl 100 mcg I.V. was administered by Tono Bates RN; for sedation; 9:37:37 Versed 2 mg I.V. was administered by Tono Bates RN; for sedation; 9:37:43 Fentanyl 100 mcg I.V. was administered by Tono Bates RN; for sedation; 9:38:04 Zero performed for pressure channel P1 9:38:11 Zero performed for pressure channel P1 9:38:18 Zero performed for pressure channel P1 9:38:25 Use device set Femoral Dx 9:38:29 ACIST Syringe (48750) opened to sterile field. 9:38:30 Bag Decanter () opened to sterile field. 9:38:30 Medline Cath Pack ([id number]) opened to sterile field. 9:38:31 DIAGNOSTIC WIRE .035 260cm J wire (357714) opened to sterile field. 9:38:35 ACIST Hand Control (03961) opened to sterile field. 9:38:35 ACIST Manifold (61134) opened to sterile field. 9:38:36 DIAGNOSTIC Multipack 5Fr catheter set (HY2637) opened to sterile field. 9:38:37 Tegaderm 4 x 4 (1626W) opened to sterile field. 9:38:40 SHEATH Prelude 5Fr 0.035 ([id number]-8G-19-035) opened to sterile field. 9:38:44 Procedure started. 9:39:33 Local anesthetic to right femoral artery with Lidocaine 2% by Jc Rice MD.INITIAL ACCESS ONLY 9:39:41 A 5 Fr sheath was inserted into the Right Femoral artery 9:39:48 A MULTIPACK Pigtail 5 Fr catheter was advanced over the wire and used for LV Angiography. 9:39:55 EF : 50 % 9:40:00 LV angiography performed. 9:40:02 Catheter removed. 9:40:07 A MULTIPACK JL 4.0 5Fr catheter was advanced over the wire and used for Left Coronary Angiography. 9:40:40 LCA angiography performed. 9:41:29 Catheter removed. 9:41:40 A DIAGNOSTIC AR MOD 5Fr Catheter ([id number]) was advanced over the wire and used for SVG Angiography. 9:41:47 SVG to RCA angiography performed. 9:42:07 Catheter removed. 9:43:15 A MULTIPACK 3DRC 5Fr catheter was advanced over the wire and used for Multi-vessel Angiography. 9:43:33 LEFT SUBCLAVIAN ANGIOGRAM 9:43:46 Catheter removed. 9:43:58 GUIDE 6FR XBLAD 3.5 SH catheter ([id number]) opened to sterile field. 9:43:59 [place] IVUS Catheter (91740R) opened to sterile field. 9:44:01 CHOICE PT Extra Support 182cm wire ([id number]) opened to sterile field. 9:44:02 SHEATH 6Fr Prelude ([id number]) opened to sterile field. 9:44:09 Heparin Bolus 4000 units I.V. was administered by Tono Bates RN; for anticoagulation; 9:44:14 Sheath upsized to a 6 Fr Short. 9:44:22 6 Fr XBLAD 3.5 SH guide catheter was inserted over the wire 9:44:27 CPTES wire advanced. 9:44:30 IVUS catheter advanced over wire. 9:44:32 IVUS pass to LAD lesion performed. 9:45:33 Procedure type changed to Cath procedure, Diagnostic procedure, LHC, LHC w/Coronaries, FFR/IVUS, Intra-Coronary IVUS Initial, PCI procedure, Coronary Stent, Coronary Stent Initial, Peripheral Cath Diagnostic Procedure, Abd/Extremity, Extremities, Left Upper Ext. Arteriogram 9:49:10 IVUS catheter removed over wire. 9:49:18 Fentanyl 100 mcg I.V. was administered by Tono Bates RN; for sedation; 9:49:46 Place stent Inflation Number: 1 A KATHRYN RX 2.5 x 08 stent ([id number]) was prepped and advanced across the 1st Diag. The stent was deployed at 11 SHERRI for 0:12 (min:sec). 9:49:57 Inflation number: 2 The stent balloon was then re-inflated across the 1st Diag to 13 SHERRI for 0:10 (min:sec). 9:51:33 EXOSEAL 6Fr (EX600) opened to sterile field. 9:52:22 Stent catheter was removed intact over wire. 9:52:24 Wire removed. 9:52:25 Guide catheter removed. 9:52:28 Procedure ended.(Physican Out) 9:52:37 Contrast amount:Isovue 300 66ml. 9:52:42 Fluoroscopy time 03.70 minutes. 9:52:47 Fluoroscopy dose: 337 mGy 9:52:47 Flurop Dose total: 337 9:52:51 Insertion/operative site no bleeding no hematoma. 9:52:54 Post-op/insertion site Right Femoral artery dressed using a 4 x 4 and Tegaderm. 9:53:00 Post right femoral artery:stable 9:53:02 Post Procedure Pulses reassessed and unchanged 9:53:06 Post procedure: right dorsailis pedis pulse 1+ Palpable, but thready & weak; easily obliterated. 9:53:09 Post procedure rhythm: sinus rhythm 9:53:11 Post procedure instruction explained to patient.Patient verbalizes understanding. 9:53:14 Procedure and supply charges have been captured, reviewed, submitted and are correct. 9:54:08 Procedure Complication : No complications 9:54:10 Vital chart was stopped 9:54:10 See physician's report for complete and final results. 9:54:13 Report given to Pre/Post Procedure Room. 9:54:16 Patient transfered to Pre/Post Procedure Room with Stretcher. 9:56:17 Procedure ended. 9:56:17 Full Disclosure recording stopped 9:56:23 End room use (Document Last) Intervention Summary Intervention Notes Time ActionType Lesion and Equipment Used Action# Pressure Duration Attributes 9:49:46 Place stent 1st Diag KATHRYN RX 2.5 x 1 11 00:12 08 stent ([id number]) 9:49:57 Reinflate 1st Diag KATHRYN RX 2.5 x 2 13 00:10 stent 08 stent balloon ([id number]) Device Usage Item Name Manufacture Quantity Catalog Number Hospital Part Current Minimal Lot# / Charge Number Stock Stock Serial# Code ACIST Syringe Acist 1 76695 664433 761245 482269 20 (89905) [employer] Bag Decanter Microtek 1 2001S 037602 88959 479044 5 () Medical Inc. Medline Cath Cardinal 1 [id number] 395562 64635 242733 5 Pack Health ([id number]) DIAGNOSTIC WIRE St Lamine 1 087525 430828 697808 992303 30 .035 260cm J wire (402084) ACIST Hand Acist 1 87915 793099 904110 597721 5 Control (41178) [employer] Inc ACIST Manifold Acist 1 99681 187383 012085 079783 5 (47230) [employer] Systems Inc DIAGNOSTIC Cardinal 1 UL5636 659359 59346 729090 30 Multipack 5Fr Health catheter set ([id number]) Tegaderm 4 x 4 3M 1 1626W 171553 305207 014565 5 (1626W) SHEATH Prelude Merit 1 XWD-6W-15-035 184639 429594 152453 5 5Fr 0.035 Medical (OXS-5M-36-035) MULTIPACK Cardinal 1 021785 5 Pigtail 5 Fr Health catheter MULTIPACK JL Cardinal 1 845153 5 4.0 5Fr Health catheter DIAGNOSTIC AR Cardinal 1 [id number] 906027 593128 922773 15 MOD 5Fr Health Catheter (153337V) MULTIPACK 3DRC Cardinal 1 558451 5 5Fr catheter Health GUIDE 6FR XBLAD Cardinal 1 [id number] 490513 477021 183361 3 3.5 SH catheter Health ([id number]) [place] 1 47210L 721380 323845 630019 8 [place] IVUS Catheter (31892X) CHOICE PT Extra [place] 1 [id number] 011526 474624 617256 5 Support 182cm Scientific wire (7050975N6) SHEATH 6Fr Merit 1 [id number] 329339 454274 118455 5 Prelude Medical ([id number]) KATHRYN RX 2.5 x Medtronic 1 [id number] 677925 5010869 092088 5 [id number] 08 stent ([id number]) EXOSEAL 6Fr Cardinal 1 EX600 136183 161159 373640 10 (EX600) Health Signature Audit [place] Stage Time Signature Unsigned Intra-Procedure 10/31/2017 Aston Juárez RT(Jeff) 9:57:48 AM Signatures Monitor : Aston Juárez RT Signature : Date : Time : [address] [address]
--- NOTE | ~2017-10-31 | OP ---
PATIENT NAME: ARTUR LUZ MEDICAL RECORD: [id number] :61 LOCATION:D.CAT ADMISSION DATE: SURGEON: LAURA HIRSCH MD DATE OF OPERATION: 10/31/2017 DATE OF SERVICE: 10/31/2017 PROCEDURES: 1. PTCA stent LAD diagonal. 2. Left heart catheterization. 3. Selective coronary angiography. 4. Left ventriculogram. 5. Intravascular ultrasound. 6. Vein graft angiography. 7. Bilateral subclavian angiography. INDICATION: Angina and coronary artery disease, arm pain. PROCEDURE IN DETAIL: After informed consent was obtained and after a detailed description of the risks, benefits as well as alternative therapies, the patient elected to proceed with angiogram and angioplasty. The right femoral area was prepped and draped in normal sterile fashion. Right femoral artery was cannulated via modified Seldinger technique with placement of 6-Mauritanian sheath. FINDINGS: 1. Each subclavian was sub-selectively engaged. There was no disease of the right or left subclavian that would explain arterial insufficiency to the arm. 2. Left ventriculogram was performed in standard 30-degree AMANDA view, reveals good cardiac wall motion throughout all segments. Overall ejection fraction estimated 60%. SELECTIVE CORONARY ANGIOGRAPHY: 1. Left main is with no significant angiographic disease. 2. Left anterior descending has previously placed stents, these are widely patent. Intravascular ultrasound reveals there is no significant stenosis proximal to the stents. 3. The LAD diagonal has previously placed stents, these are widely patent; however, there is 80% stenosis after these stents. 4. The left circumflex has moderate irregularities, but no flow-limiting stenosis. Previously placed stent in the circumflex is widely patent. 5. The right coronary is totally occluded. 6. Vein graft to the right coronary is widely patent. The previously placed stent in this vein graft is widely patent. PTCA STENT OF THE LAD DIAGONAL: The stent used was a 2.5 x 8 mm Moises. Result was 0% residual stenosis. OVERALL IMPRESSION: Successful percutaneous transluminal coronary angioplasty stent of the left anterior descending diagonal going from 80% initial stenosis to 0% residual. TRANSINT:[id number] Voice Confirmation ID: [id number] DOCUMENT ID: [id number] OPERATIVE REPORT [id number] ARTUR LUZ LAURA HIRSCH MD at 2802 CC: [id number] DICTATION DATE: 10/31/17 0957 SCRAP HOIST OPERATOR: 10/31/17 1145 DEP CLI 10/31/17 [place] [id number] [place] [id number]
[~2017-10-31 07:37] MED LIST changes: +OXYCONTIN10 MG PO
[2017-10-31 08:00] VITALS: BP 122/74; Ht 167.6 cm; Wt 58.6 kg
[2017-10-31 08:22] LABS: ANION GAP 6.6 mmol/L (8-16); CALCIUM 8.4 mg/dL (8.5-10.1); CARBON DIOXIDE 33.1 mmol/L (21.0-32.0); CREATININE - SERUM 1.3 mg/dL (0.6-1.3); POTASSIUM - SERUM 3.7 mmol/L (3.5-5.1)
[2017-10-31 08:27] LABS: BASOPHILS 0.1 % (0-2); EOSINOPHILS 0.8 % (0-7); HEMOGLOBIN 14.4 g/dL (12-16); IMMATURE GRANULOCYTES 0.1 % (0-5); LYMPHOCYTES 25.7 % (15-50); MCH 33.6 pg (26.0-34.0); MCHC 33.5 g/dL (31.0-37.0); MCV 100.5 fL (80.0-100.0); MEAN PLATELET VOLUME 10.8 fL (7.4-10.4); MONOCYTES 4.9 % (2-11); NEUTROPHILS 68.4 % (40-80); PLATELET COUNT 181 10x3/uL (130-400); RBC 4.28 10x6/uL (4.00-5.40); RDW 13.2 % (11.5-14.5)
== END | disposition home or self-care (01) ==
LOC: D.CATH 07:37
PROVIDERS: Internal Medicine Interventional Cardiology
DX: I25.119 Atherosclerotic heart disease of native coronary artery with unspecified angina pectoris (principal); Z95.1 Presence of aortocoronary bypass graft; Z01.812 Encounter for preprocedural laboratory examination
CPT/HCPCS: 92978; 93459; 36225; C9600

== ENCOUNTER 2018-05-02 19:52 | Observation (INO) | payer MEDICARE ==
[~2018-05-02] VITALS: Ht 167.6 cm; Wt 55.9 kg
--- NOTE | ~2018-05-02 | HEMODYNAMI ---
PATIENT:ARTUR LUZ MEDICAL RECORD: [id number] : 61 LOCATION:[facility] D.[address] [facility]# [id number] ADMISSION DATE: 05/02/18 Generatedon:05/03/201811:30 Patient name: ARTUR LUZ Patient #: [id number] SSN: DO B: 1965 Date of study: 05/03/2018 Page: Of Hemodynamic Procedure Report Patient Data Patient Demographics Procedure consent was obtained First Name: ARTUR Gender: Female Last Name: NATTY : 1965 Middle Initial: D Age: 53 year(s) Patient #: [id number] Race: Additional ID: [id number] Contact details [address]: [address] [place] [address] circle State: [place] City: [place] Zip code: [address] Past Medical History History of disease Date Diagnosis Comments CAD Allergies Allergen Reaction Date Comments Reported Other allergy 04/21/2015 Morphine, PCN, Stadol Other allergy 04/26/2016 stadol,pcn,morphine Penicillins 11/08/2016 Morphine 11/08/2016 Other allergy 01/20/2017 morphine, pcn, stadol Other allergy 07/04/2017 MORPHINE, PCN, STADOL Other allergy 05/03/2018 butorphanol tartrate Morphine 05/03/2018 Penicillins 05/03/2018 Admission Admission Data Admission Date: 05/02/2018 Admission Time: 20:56 Admit Source: Emergency department Room #: D.2121 Procedure Procedure Types Cath Procedure Diagnostic Procedure LHC LHC w/Coronaries w/Grafts Sedation Charges Moderate Sedation up to 15 minutes PCI Procedure Coronary Stent Coronary Stent Initial PTCA PTCA Additional Procedure Description Procedure Date Procedure Date: 05/03/2018 Procedure Start Time: 11:09 Procedure End Time: 11:29 Procedure Staff Name Function Jc Rice MD Performing Physician Claudia Quinones RT Monitor Christofer Sanchez RT Scrub Tono Bates RN Nurse Procedure Data Cath Procedure Fluoroscopy Diagnostic fluoroscopy Total fluoroscopy Time: 4.6 time: 4.6 min min Diagnostic fluoroscopy Total fluoroscopy dose: 219 dose: 219 mGy mGy Contrast Material Contrast Material Type Amount (ml) Isovue 300 82 Entry Location Entry Primary Successful Side Size Upsize Upsize Entry Closure Succes sful Closure Location (Fr) 1 (Fr) 2 (Fr) Remarks Device Remarks Femoral Right 5 Fr 6 Fr Exoseal artery Short Estimated blood loss: 10 ml Diagnostic catheters Device Type Used For End Catheter Placement MULTIPACK Pigtail 5 Fr LV Angiography catheter MULTIPACK JL 4.0 5Fr Left Coronary catheter Angiography DIAGNOSTIC AR2 MOD 5 Fr SVG Angiography catheter ([id number]) Procedure Complications No complications Procedure Medications Medication Administration Route Dosage 0.9% NaCl I.V. 100 ml/hr Oxygen etCO2 Nasal cannula 2 l/min Heparin Flush Bag added to field 2 bags (1000units/500ml NS) Lidocaine 2% added to field 20 Versed I.V. 2 mg Fentanyl I.V. 100 mcg Versed I.V. 2 mg Fentanyl I.V. 100 mcg Heparin Bolus I.V. 4000 units Versed I.V. 2 mg Nitroglycerin IC/IA I.C. 200 mcg Hemodynamics Rest Heart Rate: 59 (bpm) Snapshots Pre Cath Intra NCS Post Cath Vital Signs Time Heart Resp SPO2 etCO2 NIBP Rhythm Pain Sedation Rate (ipm) (%) (mmHg) (mmHg) Status Level (bpm) 11:02:46 53 16 100 47.7 107/56(81) NSR 0 (11) 10(A) , No pain 11:06:56 53 19 100 47.7 97/53(70) NSR 0 (11) 10(A) , No pain 11:11:00 56 23 100 48.5 91/53(70) NSR 0 (11) 10(A) , No pain 11:15:04 57 11 98 21.2 88/50(62) NSR 0 (11) 10(A) , No pain 11:19:09 60 32 97 12.8 83/41(54) NSR 0 (11) 10(A) , No pain 11:23:13 71 18 97 47.7 73/46(57) NSR 0 (11) 10(A) , No pain 11:27:13 58 19 97 46.2 85/43(59) NSR 0 (11) 10(A) , No pain Medications Time Medication Route Dose Verified Delivered Reason Notes Effectiveness by by 11:03:14 0.9% NaCl I.V. 100 Tono Tono Per physician ml/hr Jana Bates RN RN 11:03:24 Oxygen etCO2 2 Tono Tono for low 02 sats Nasal l/min Jana Bates cannula RN RN 11:03:37 Heparin Flush added 2 Tono Tono used for Bag to bags Jana Bates procedure (1000units/500ml field RN RN NS) 11:03:48 Lidocaine 2% added 20ml Tono Tono for local to vial Lorcally Bates anesthetic field RN RN 11:07:45 Versed I.V. 2 mg Tono Tono for sedation Jana Bates RN RN 11:07:52 Fentanyl I.V. 100 Tono Tono for sedation mcg Jana Bates RN RN 11:10:17 Versed I.V. 2 mg Tono Tono for sedation Jana Bates RN RN 11:10:23 Fentanyl I.V. 100 Tono Tono for sedation mcg Jana Bates RN RN 11:18:18 Heparin Bolus I.V. 4000 Tono Tono for units Jana Bates anticoagulation RN RN 11:20:51 Versed I.V. 2 mg Tono Tono for sedation Jana Bates RN RN 11:21:12 Nitroglycerin I.C. 200 Tono Jc for IC/IA mcg Jana Rice MD vasodilation central office frame wirer Log Time Note 10:33:32 Informed consent obtained and on chart 10:33:35 Admit Source: Emergency department 10:33:48 Diagnostic Cath status Elective 10:33:50 Christofer Sanchez RT(R) sent for patient. Start room use. 10:33:52 Time tracking: Call back (After hours or weekends) 10:33:55 Plan of Care:Hemodynamics will remain stable., Cardiac rhythm will remain stable., Comfort level will be maintained., Respiratory function will remain adequate., Patient/ family verbilizes understanding of procedure., Procedure tolerated without complication., Recovers from procedure without complications.. 10:35:39 H&P Date Dictated: 05/03/2018 Within 30 days and on chart.. 10:53:36 Patient received from PCU to CCL 1 Alert and oriented. Tansferred to table in Supine position. 10:53:37 Warm blankets applied, and terese hugger turned on for patient comfort. 10:53:38 Correct patient and procedure confirmed by team. 10:53:39 ECG and BP/O2 sat monitors applied to patient. 10:53:39 Full Disclosure recording started 11:01:44 Vital chart was started 11:03:14 0.9% NaCl 100 ml/hr I.V. was administered by Tono Bates RN; Per physician; 11:03:24 Oxygen 2 l/min etCO2 Nasal cannula was administered by Tono Bates RN; for low 02 sats; 11:03:37 Heparin Flush Bag (1000units/500ml NS) 2 bags added to field was administered by Tono Bates RN; used for procedure; 11:03:48 Lidocaine 2% 20ml vial added to field was administered by Tono Bates RN; for local anesthetic; 11:04:06 Baseline sample Acquired. 11:04:09 Rhythm: sinus rhythm 11:04:12 Pre-procedure instructions explained to patient. 11:04:12 Pre-op teaching completed and patient verbalized understanding. 11:04:14 Family in patients room. 11:04:15 Patient NPO since Midnight. 11:04:23 Patient allergic to Morphine 11:04:54 Patient allergic to Other allergybutorphanol tartrate 11:04:59 Patient allergic to Penicillins 11:05:04 Is the patient allergic to Iodine/contrast media? No. 11:05:06 Is patient on blood thinner?Yes 11:05:08 ACC The patient was administered the following blood thiners within the last 24 hours: ACCPlavix 11:05:09 Patient diabetic? No. 11:05:13 Previous problem with sedation/anesthesia? No ? 11:05:13 Snore? Yes 11:05:14 Sleep apnea? No 11:05:15 Deviated septum? No 11:05:16 Opens mouth fully? Yes 11:05:16 Sticks out tongue? Yes 11:05:24 Airway obstruction? Yes EMPHYSEMA 11:05:27 Dentures? No ? 11:05:31 Pre procedure: right dorsailis pedis pulse 2+ Normal; easily identifiable; not easily obliterated 11:05:33 Patient pain scale 0/10 ?. 11:05:40 IV patent on arrival in left forearm with 0.9% NaCl at KVO. 11:05:42 Lab results completed and on chart. 11:05:45 Right groin area was prepped with chlora-prep and draped in sterile fashion 11:05:46 Alarms reviewed by R. N. 11:05:46 Sharps counted by scrub and verified by R.N. 11:05:47 Final Timeout: patient, procedure, and site verified with staff and physician. All members of the team are in agreement. 11:05:49 Right groin site verified by team. 11:05:53 Fire Safety Assessment: A--An alcohol-based skin anteseptic being used preoperatively., C--Open oxygen or nitrous oxide is being used., D--An ESU, laser, or fiber-optic light is being used. 11:05:56 Physical assessment completed. ASA score P 2 - A patient with mild systemic disease as per Jc Rice MD. 11:06:00 Sedation plan: IV Moderate Sedation Medication:Versed, Fentanyl 11:06:59 Use device set Femoral Dx 11:07:00 ACIST Syringe (26501) opened to sterile field. 11:07:01 Bag Decanter (2002S) opened to sterile field. 11:07:01 Medline Cath Pack ([id number]) opened to sterile field. 11:07:01 DIAGNOSTIC WIRE .035 260cm J wire (839832) opened to sterile field. 11:07:02 ACIST Hand Control (47388) opened to sterile field. 11:07:03 ACIST Manifold (35817) opened to sterile field. 11:07:03 DIAGNOSTIC Multipack 5Fr catheter set ([id number]) opened to sterile field. 11:07:04 Tegaderm 4 x 4 (1626W) opened to sterile field. 11:07:04 SHEATH 5FR Mingus (XNH812) opened to sterile field. 11:07:45 Versed 2 mg I.V. was administered by Tono Bates RN; for sedation; 11:07:52 Fentanyl 100 mcg I.V. was administered by Tono Bates RN; for sedation; 11:09:31 Zero performed for pressure channel P1 11:09:35 Procedure started. 11:09:38 Local anesthetic to right femoral artery with Lidocaine 2% by Jc Rice MD.INITIAL ACCESS ONLY 11:10:17 Versed 2 mg I.V. was administered by Tono Bates RN; for sedation; 11::23 Fentanyl 100 mcg I.V. was administered by Tono Bates RN; for sedation; 11:10:57 A 5 Fr sheath was inserted into the Right Femoral artery 11:11:02 A MULTIPACK Pigtail 5 Fr catheter was advanced over the wire and used for LV Angiography. 11:12:13 LV gram done using AMANDA 11:12:17 Injector settings: Ml/sec: 10, Volume: 20, 11:12:21 EF : 60 % 11:12:22 Catheter removed. 11:12:30 A MULTIPACK JL 4.0 5Fr catheter was advanced over the wire and used for Left Coronary Angiography. 11:13:05 Use device set TAUTH PCI 11:13:07 SHEATH 6FR [place] (OYU418) opened to sterile field. 11:13:11 INFLATOR Merit BasixCompak (PK6234) opened to sterile field. 11:13:16 CHOICE PT Extra Support 182cm wire ([id number]) opened to sterile field. 11:13:33 Catheter removed. 11:14:12 Sheath upsized to a 6 Fr Short. 11:14:16 A DIAGNOSTIC AR2 MOD 5 Fr catheter ([id number]) was advanced over the wire and used for SVG Angiography. TO RCA 11:15:00 Catheter removed. 11:15:06 GUIDE 6FR XBLAD 4.0 catheter ([id number]) opened to sterile field. 11:16:31 6 Fr XBLAD 4.0 guide catheter was inserted over the wire 11:17:10 CHOICE PT ES wire advanced. 11:18:18 Heparin Bolus 4000 units I.V. was administered by Tono Bates RN; for anticoagulation; 11:19:08 Place stent Inflation Number: 1 A KATHRYN RX 2.0 x 8 stent ([id number]) was prepped and advanced across the 1st Diag. The stent was deployed at 15 SHERRI for 0:04 (min:sec). 11::23 Inflation number: 2 The stent balloon was then re-inflated across the 1st Diag to 21 SHERRI for 0:07 (min:sec). 11:19:39 Inflation number: 3 The stent balloon was then re-inflated across the 1st Diag to 21 SHERRI for 0:04 (min:sec). 11:20:16 Stent catheter was removed intact over wire. 11:20:51 Versed 2 mg I.V. was administered by Tono Bates RN; for sedation; 11:21:07 Wire redirected to LAD. 11:21:12 Nitroglycerin IC/IA 200 mcg I.C. was administered by Jc Rice MD; for vasodilation; 11::44 Inflate balloon Inflation number: 1 A EUPHORA 3.5 x 15 Balloon ([id number]) was prepped and advanced across the Mid LAD, then inflated to 11 SHERRI for 0:10 (min:sec). 11:22:36 Balloon removed over the wire. 11:22:36 Wire removed. 11:22:37 Guide catheter removed. 11::45 Sheath removed intact; hemostasis achieved with Exoseal to the Right Femoral artery. 11:22:47 Procedure ended.(Physican Out) 11:23:00 EXOSEAL 6Fr (EX600) opened to sterile field. 11:23:06 Fluoroscopy time 04.60 minutes. 11:23:10 Flurop Dose total: 219 11:23:10 Fluoroscopy dose: 219 mGy 11:23:19 Contrast amount:Isovue 300 82ml. 11:23:21 Sharps counted by scrub and verified by R.N. 11:23:22 Insertion/operative site no bleeding no hematoma. 11:23:25 Post-op/insertion site Right Femoral artery dressed using a 4 x 4 and Tegaderm. 11:23:36 Post right femoral artery:stable, clean and dry 11:23:37 Post Procedure Pulses reassessed and unchanged 11:23:40 Post-procedure physical assessment completed. ASA score P 2 - A patient with mild systemic disease as per Jc Rice MD. 11:23:43 Post procedure rhythm: unchanged. 11:23:45 Estimated blood loss: 10 ml 11:23:47 Post procedure instruction explained to patient.Patient verbalizes understanding. 11:23:47 Patient needs reinforcement of post procedure teaching. 11:24:26 Procedure type changed to Cath procedure, Diagnostic procedure, LHC, LHC w/Coronaries w/Grafts, Sedation Charges, Moderate Sedation up to 15 minutes, PCI procedure, Coronary Stent, Coronary Stent Initial, PTCA, PTCA Additional 11:24:33 Procedure Complication : No complications 11:24:36 See physician's report for complete and final results. 11:25:33 Procedure and supply charges have been captured, reviewed, submitted and are correct. 11:29:39 Vital chart was stopped 11::41 Report given to PCU. 11:29:44 Patient transfered to PCU with Bed. 11:29:52 Procedure ended. 11:29:52 Full Disclosure recording stopped 11:29:55 End room use (Document Last) Intervention Summary Intervention Notes Time ActionType Lesion and Equipment Used Action# Pressure Duration Attributes 11:19:08 Place stent 1st Diag KATHRYN RX 2.0 x 1 15 00:04 8 stent ([id number]) 11:19:23 Reinflate 1st Diag KATHRYN RX 2.0 x 2 21 00:07 stent 8 stent balloon ([id number]) 11:19:39 Reinflate 1st Diag KATHRYN RX 2.0 x 3 21 00:04 stent 8 stent balloon ([id number]) 11:21:44 Inflate Mid LAD EUPHORA 3.5 x 1 11 00:10 balloon 15 Balloon ([id number]) Device Usage Item Name Manufacture Quantity Catalog Number Hospital Part Current M inimal Lot# / Charge Number Stock Stock Serial# Code ACIST Syringe Acist 1 97280 221197 122198 909151 2 0 (40780) Medical Systems Inc Bag Decanter Microtek 1 347777 33704 811204 5 () Medical Inc. Medline Cath Medline 1 [id number] 995979 36877 988077 5 Pack ([id number]) DIAGNOSTIC St Lamine 1 676872 583310 705900 457858 3 0 WIRE .035 260cm J wire (823764) ACIST Hand Acist 1 85893 179297 571952 251908 5 Control Medical (21313) Systems Inc ACIST Manifold Acist 1 21551 502910 606060 008856 5 (89357) Medical Systems Inc DIAGNOSTIC Cardinal 1 HP8331 856889 64044 699527 3 0 Multipack 5Fr Health catheter set (BA1917) Tegaderm 4 x 4 3M 1 1626W 870926 503084 516285 5 (1626W) SHEATH 5FR Terumo 1 SIP712 267706 546272 557351 5 Mingus (KRG832) MULTIPACK Cardinal 1 245346 5 Pigtail 5 Fr Health catheter MULTIPACK JL Cardinal 1 884938 5 4.0 5Fr Health catheter SHEATH 6FR Terumo 1 XYU305 525115 147057 288902 4 0 Mingus (YFH499) INFLATOR Merit Merit 1 LJ5593 483376 949731 127223 1 5 [facility] (PF9145) CHOICE PT [place] 1 [id number] 202859 881035 419883 5 Extra Support Scientific 182cm wire ([id number]) DIAGNOSTIC AR2 Cardinal 1 [id number] 126469 354811 060668 2 0 MOD 5 Fr Health catheter (382563V) GUIDE 6FR Cardinal 1 [id number] 855807 189313 759333 3 XBLAD 4.0 Health catheter ([id number]) KATHRYN RX 2.0 x Medtronic 1 [id number] 582167 3344396 309632 5 [id number] 8 stent ([id number]) EUPHORA 3.5 x Medtronic 1 [id number] 610181 812077 490120 5 [id number] 15 Balloon ([id number]) EXOSEAL 6Fr Cardinal 1 EX600 157354 568925 380295 1 0 (EX600) Health Signature Audit [place] Stage Time Signature Unsigned Intra-Procedure 05/03/2018 Claudia 11:30:10 AM Counts RT(R) Signatures Monitor : Claudia Signature : Counts RT Date : Time : [facility] [address] [place] [address]
[2018-05-02] MEDS ORDERED: BISOPROLOL-HCT1 EAC1 PO (20:09)
[2018-05-02 20:38] LABS: BASOPHILS 0.2 % (0-2); EOSINOPHILS 0.4 % (0-7); HEMATOCRIT 39.6 % (36.0-48.0); HEMOGLOBIN 13.8 g/dL (12-16); IMMATURE GRANULOCYTES 0.2 % (0-5); LYMPHOCYTES 29.8 % (15-50); MCH 33.4 pg (26.0-34.0); MCHC 34.8 g/dL (31.0-37.0); MCV 95.9 fL (80.0-100.0); MEAN PLATELET VOLUME 10.3 fL (7.4-10.4); NEUTROPHILS 64.4 % (40-80); PLATELET COUNT 174 10x3/uL (130-400); RBC 4.13 10x6/uL (4.00-5.40); RDW 12.4 % (11.5-14.5)
[2018-05-02 20:42] LABS: APTT 29.2 SECONDS (22.8-39.4); INR 1.03 (0.85-1.17)
[2018-05-02 20:51] LABS: ALBUMIN 3.5 g/dL (3.4-5.0); ALKALINE PHOSPHATASE 91 U/L (46-116); ALT (SGPT) 15 U/L (10-68); BILIRUBIN - TOTAL 0.36 mg/dL (0.2-1.3); CALC OSMOLALITY 271 mosm/kg (275-300); CALCIUM 8.9 mg/dL (8.5-10.1); CARBON DIOXIDE 29.5 mmol/L (21.0-32.0); CHLORIDE - SERUM 99 mmol/L (98-107); CREATININE - SERUM 1.1 mg/dL (0.6-1.3); GLUCOSE 95 mg/dL (74-106); POTASSIUM - SERUM 3.8 mmol/L (3.5-5.1); PROTEIN - SERUM 7.4 g/dL (6.4-8.2); SODIUM 137 mmol/L (136-145); UREA NITROGEN 7 mg/dL (7-18); eGFR NON AFRICAN AMERICAN 55 mL/min (90-120)
[2018-05-02 21:00] LABS: CKMB 0.3 U/L (0.0-3.6); CREATINE KINASE 37 UL (21-215); MAGNESIUM - SERUM 1.9 mg/dL (1.8-2.4)
[2018-05-02 21:09] VITALS: BP 115/73
[2018-05-02 21:10] LABS: TROPONIN-I < 0.017 ng/mL (0.000-0.060)
--- NOTE | 2018-05-02 22:15 | NUR ---
PT ARRIVED TO FLOOR BY WHEELCHAIR, REPORT TAKEN FROM PIERO JORDAN RN. VITALS STABLE. INTRODUCED SELF TO PT, PT DENIES FURTHER NEEDS. NO S/S OF DISTRESS NOTED. CALL LIGHT IN REACH. WILL CTM.
--- NOTE | 2018-05-02 22:44 | NUR ---
ADMINISTERED ORDERED ANALGESIC FOR COMPLAINTS OF PAIN IN BACK AND CHEST, PT STATES PAIN OF A 8 ON A SCALE OF 0-10.
--- NOTE | 2018-05-02 22:45 | NUR ---
PT STATED SHE TAKES OXYCONTIN AT HOME, I ADVISED HER I WOULD CALL THE DOCTOR TO GET HER PAIN MEDICINE BUT NOT TO TAKE ANY OF HER MEDICINES FROM HOME WHILE SHE IS IN THE HOSPITAL.
[2018-05-03] VITALS: BP 92/57
[2018-05-03 04:00] VITALS: BP 92/52
--- NOTE | 2018-05-03 04:39 | NUR ---
RESTING IN BED WITH EYES CLOSED.HOB ELEVATED. O2 @ 3.5 LITERS PER N/C. RESP EVEN AND UNLABORED. IV TO LEFT FA SL.. WEARING GLASSES. TELEMETRY IN PLACE AND HR 58 SINUS IAN. NO S/S OF DISTRESS OBSERVED.
[2018-05-03 05:32] VITALS: BP 112/75; Ht 167.6 cm; Wt 55.9 kg
--- NOTE | 2018-05-03 05:48 | NUR ---
ADMINISTERED ORDERED ANALGESIC FOR COMPLAINTS OF PAIN IN BACK AND SHOULDER, PT STATES PAIN OF A 7 ON A SCALE OF 0-10.
--- NOTE | 2018-05-03 10:30 | NUR ---
ASSESSMENT COMPLETED. ALERT AND ORIENTED. TELEMERTY SHOWS SB. 02 AT 2 L/M PER NC. UP AB NIESHA. PRE OP FOR CATH GIVEN. FAMILY AT BED SIDE
--- NOTE | 2018-05-03 12:03 | NUR ---
RN ROUNDING DONE AND I AGREE WITH ASSESSMENT WITH AMINA DHILLON LPN. 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 RIGHT GROIN DRESSING IS C/D/I. FAMILY IS AT BEDSIDE.
--- NOTE | 2018-05-03 12:19 | NUR ---
BACK FROM GAS FITTER APPRENTICE. ALERT AND ALERT. RIGHT GROIN SOFT, WITH DRSG DRY AND INTACT. PPP. B/P 80/47. FAMILY AT BEDSIDE
--- NOTE | 2018-05-03 15:10 | NUR ---
PT DISCHARGED. IV DCD WITH TIP INTACT.RIGHT GROIN DRSG DRY AND INTACT. NO BLEEDING OR SWELLING. INSTRUCTIONS GIVEN
--- NOTE | 2018-05-05 11:18 | OP ---
PATIENT NAME: ARTUR LUZ MEDICAL RECORD: [id number] :61 LOCATION:D.M2 D.1 ADMISSION DATE:05/02/18 SURGEON: LAURA HIRSCH MD DATE OF OPERATION: 05/03/2018 DATE OF SERVICE: 05/03/2018 PROCEDURES: 1. PTCA stent LAD diagonal. 2. PTCA, LAD. 3. Left heart catheterization. 4. Selective coronary angiography. 5. Left ventriculogram. INDICATION: Unstable angina. PROCEDURE IN DETAIL: After informed consent was obtained and after a detailed description of the risks, benefits as well as alternative therapies, the patient elected to proceed with angiogram and angioplasty. The right femoral area was prepped and draped in normal sterile fashion. Right femoral artery was cannulated via modified Seldinger technique with placement of 6-Armenian sheath. All catheters exchanged through this sheath. FINDINGS: The left ventriculogram was performed in standard 30-degree AMANDA view, reveals good cardiac wall motion throughout all segments. Overall ejection fraction estimated at 60%. SELECTIVE CORONARY ANGIOGRAPHY: 1. Left main is with no significant angiographic disease. 2. Left anterior descending has previously placed stents in the LAD and diagonal. The diagonal has 95% in-stent restenosis as well as 95% stenosis after the previously placed stent. 3. The left circumflex has moderate irregularities, but no flow-limiting stenosis. 4. Right coronary is totally occluded. 5. Vein graft to the right coronary is widely patent. PTCA STENT OF THE LAD DIAGONAL: The stent used was a 2.0 x 9 mm [place]. Stent balloon was then used for the in-stent restenosis. The LAD was addressed with a 3.5 balloon. Result was 0% residual throughout. OVERALL IMPRESSION: Successful percutaneous transluminal coronary angioplasty stent of the left anterior descending diagonal going from 95% initial stenosis to 0% residual. TRANSINT:[id number] Voice Confirmation ID: [id number] DOCUMENT ID: [id number] OPERATIVE REPORT [id number] ARTUR LUZ JEFFREY MD at 1118 CC: [id number] DICTATION DATE: 05/03/18 1128 BROACH GRINDER: 05/03/18 1141 DIS IN 05/03/18 [place] [address]
--- NOTE | 2018-05-05 11:18 | DS ---
PATIENT:ARTUR LUZ :61 MEDICAL RECORD: [id number] DISCHARGE SUMMARY ADMISSION DATE: 05/02/18 DISCHARGE DATE: 05/03/18 DATE OF SERVICE: 05/03/2018 DISCHARGE DIAGNOSES: 1. Percutaneous transluminal coronary angioplasty stent left anterior descending this admission. 2. Unstable angina. 3. Hypertension. 4. Hyperlipidemia. HOSPITAL COURSE: Mrs. Luz presents with unstable anginal symptomatology, found to have critical disease of the LAD and LAD diagonal, underwent successful PTCA stent. Discharged home with no change in her medications as she is already on aspirin and Plavix. Will follow up with [facility] in 1 month. TRANSINT:[id number] Voice Confirmation ID: [id number] DOCUMENT ID: [id number] LAURA HIRSCH MD at 1118 CC: [id number] DICTATION DATE: 05/03/18 1126 MOLDED GOODS CONTROLS OPERATOR: 05/04/18 0039 DIS IN 05/03/18 [id number] [place] [address]
--- NOTE | 2018-05-05 11:18 | HP ---
PATIENT: ARTUR LUZ MEDICAL RECORD: [id number] ACCOUNT: [id number] LOCATION:[address] : 61 ADMISSION DATE: 05/02/18 PCP: JEFERSON STONE M.D. HISTORY AND PHYSICAL EXAMINATION DATE OF ADMISSION: 05/02/2018 ADMITTING DIAGNOSES: 1. Unstable angina. 2. Coronary artery disease. 3. Previous multivessel percutaneous transluminal coronary angioplasty stent. 4. Prior bypass surgery. 5. Hypertension. 6. Hyperlipidemia. HISTORY OF PRESENT ILLNESS: Mrs. Luz has been having increasing episodes of chest pain, chest discomfort compatible with angina for the past 3 weeks. This has gone in an escalating unstable fashion. She is now admitted for cardiac catheterization. REVIEW OF SYSTEMS: The patient reports easy bruising but reports no swollen glands. The patient reports no fever, no night sweats, no significant weight gain, no significant weight loss. No significant exercise tolerance. The patient reports no dry eyes, no irritation, no vision change. Patient reports no difficulty hearing and no ear pain. Patient reports no frequent nose bleeds or nose and sinus problems. Patient reports on arm pain on exertion. No shortness of breath while lying down. No history of heart murmur. Patient reports no cough, no wheezing or coughing up blood. Patient reports no abdominal pain, no vomiting. Normal appetite. No diarrhea and not vomiting blood. No nausea and no constipation. Patient reports no incontinence. No difficulty urinating. No hematuria. No increased frequency. Patient reports no muscle aches. No weakness, no arthralgias, no back pain. No swelling of the extremities. Patient reports no abnormal mole, no jaundice, no rashes. Reports no loss of consciousness. No weakness and no numbness. No seizures, dizziness, or headaches. The patient reports no depression, no sleep disturbance, feeling safe in a relationship and no alcohol abuse. Patient reports on fatigue. Reports no runny nose or sinus pressure. No itching, no hives, and no frequent sneezing. PHYSICAL EXAMINATION: GENERAL APPEARANCE: Well-nourished, well-developed, appears stated age. Level of distress, comfortable. PSYCHIATRIC: Mental status, alert, normal affect. Orientation, oriented to time, place and person. EYES: Lids and conjunctiva, noninjected. No discharge, no pallor. ENT: Lips, teeth, gums, normal dentition. Oropharynx, no cyanosis, no pallor. NECK: Carotid arteries, bilateral normal upstroke, no bruits, no thrills. JUGULAR VEINS: No jugular venous pressure or distention. CERVICAL LYMPH NODES: Nontender, nonenlarged. THYROID: Not enlarged. Nontender. No nodules. LUNGS: Respiratory effort, unlabored. CHEST: Normal curvature. No thoracic deformity. No chest wall tenderness. Percussion, resonant. Auscultation, clear. No wheezes, no rales, no rhonchi. CARDIOVASCULAR: Precordial exam, nondisplaced. No heaves or pericardial thrills. Rate and rhythm, regular. Heart sounds, normal S1, normal S2. No S3, HISTORY AND PHYSICAL [id number] ARTUR LUZ no gallop, no rub. Systolic murmur, not heard. Diastolic murmur, not heard. EXTREMITIES: No cyanosis, no edema. Peripheral pulses, full and equal in all extremities, except as noted. No bruits appreciated. ABDOMEN: Soft, nondistended. Normal aorta. No bruit. Nontender. No masses. Liver, nontender, no hepatomegaly. Spleen, nontender, no splenomegaly. MUSCULOSKELETAL: No joint tenderness. No joint swelling. No erythema. NEUROLOGICAL: Normal gait, normal strength, normal tone. SKIN: Warm and dry. OVERALL IMPRESSION: Anginal symptomatology in an unstable fashion. We will proceed with coronary angiography. Further care depends upon findings of the angiography. TRANSINT:[id number] Voice Confirmation ID: [id number] DOCUMENT ID: [id number] LAURA HIRSCH MD at 1118 CC: [id number] DICTATION DATE: 05/03/18927 HAND SPINNER: 05/03/18 1016 DIS IN 05/03/18 [place] [id number] [place] [address]
--- NOTE | 2018-05-06 09:23 | MORECARE ---
CASE MANAGEMENT DISCHARGE SUMMARY PATIENT: ARTUR LUZ UNIT: [id number] ADM DATE: 05/02/18 AGE: 53 : 61 SEX: F ROOM/BED: D.2641 AUTHOR: ENZO CHANDLER PHYSICIAN: REFERRING PHYSICIAN: LAURA HIRSCH MD DATE OF SERVICE: 05/06/18 Discharge Plan Patient Name: ARTUR [facility]Z [facility] [facility] 1965 Planned Disposition: Home Anticipated Discharge Date: 05/03/18 Discharge Date: 05/03/2018 Expected LOS: 1 Initial Reviewer: [email or web address] Initial Review Date: 05/06/2018 Generated: 05/06/18 10:23 am Patient Name: ARTUR LUZ Page [id number] at 0923 All edits/amendments must be made on the electronic document DICTATION DATE: 05/06/18922 FUEL DISTRIBUTION SYSTEM OPERATOR: COLEMAN 05/06/18922 RPT#: [id number] DC DATE:05/03/18 STATUS: DIS IN [facility] [address] [place] [address] END OF REPORT
== END 2018-05-03 15:16 | disposition home or self-care (01) ==
LOC: D.ER 19:52 → D.M2 20:56 → OBSVTIME 21:28 → D.M2 05-03 15:16
PROVIDERS: Family Medicine; ADMIT Internal Medicine Interventional Cardiology
DX: I25.110 Atherosclerotic heart disease of native coronary artery with unstable angina pectoris (principal); I10 Essential (primary) hypertension; E78.5 Hyperlipidemia, unspecified; T82.855A Stenosis of coronary artery stent, initial encounter; Y83.8 Other surgical procedures as the cause of abnormal reaction of the patient, or of later complication, without mention of misadventure at the time of the procedure
CPT/HCPCS: 92920; 93458; C9600

== ENCOUNTER 2019-01-08 07:47 | Outpatient (CLI) | payer MEDICARE ==
[~2019-01-08] VITALS: Ht 167.6 cm; Wt 53.6 kg
--- NOTE | ~2019-01-08 | HEMODYNAMI ---
PATIENT:ARTUR LUZ MEDICAL RECORD: [id number] : 61 LOCATION:D.CAT ADMISSION DATE: 01/08/19 Generatedon:01/08/201910:56 Patient name: ARTUR LUZ Patient #: [id number] SSN: [id number] : 1965 Date of study: 01/08/2019 Page: Of Hemodynamic Procedure Report Patient Data Patient Demographics Procedure consent was obtained First Name: ARTUR Gender: Female Last Name: NATTY : 1965 Middle Initial: D Age: 53 year(s) Patient #: [id number] Race: SSN: [id number] Additional ID: [id number] Contact details [address]: [address] [place] [address] [place] State: [place] City: [place] Zip code: [address] Past Medical History History of disease Date Diagnosis Comments CAD Allergies Allergen Reaction Date Comments Reported Other allergy 04/21/2015 Morphine, PCN, Stadol Other allergy 04/26/2016 stadol,pcn,morphine Penicillins 11/08/2016 Morphine 11/08/2016 Other allergy 01/20/2017 morphine, pcn, stadol Other allergy 07/04/2017 MORPHINE, PCN, STADOL Other allergy 05/03/2018 butorphanol tartrate Morphine 05/03/2018 Penicillins 05/03/2018 Other allergy 01/08/2019 MORPHINE, PCN, STADOL Admission Admission Data Admission Date: 01/08/2019 Admission Time: 7:47 Arrival Date: 01/08/2019 Arrival Time: 0:00 Height (in.): 66 BSA: 1.6 (m2) Height (cm.): 167.64 BMI: 19.21 (kg/m2) Weight (lbs.): 119.05 Weight (kg.): 54 Lab Results Lab Result Date: 01/08/2019 Lab Result Time: 0:00 Biochemistry Name Units Result Min Max BUN mg/dl 8 --(*---)-- 7 18 Creatinine mg/dl 1.2 --(---*)-- 0.6 1.3 eGFR ml/min 49 *-(----)-- 90 120 NONAFRICAN CBC Name Units Result Min Max Hematocrit % 41.7 -*(----)-- 42 54 Hemoglobin g/dl 14.1 --(*---)-- 13.5 17.5 Procedure Procedure Types Cath Procedure Diagnostic Procedure [facility] w/Coronaries w/Grafts FFR/IVUS FFR Initial PCI Procedure Coronary Atherectomy Atherectomy w/PTCA Coronary Initial Procedure Description Procedure Date Procedure Date: 01/08/2019 Procedure Start Time: 10:20 Procedure End Time: 10:53 Procedure Staff Name Function Jc Rice MD Performing Physician Ruma Ortega RT Scrub Tono Bates RN Nurse Liv Landry RN Corrugated Box Machine Operator Jan Fairbanks RT Monitor Indication Angina Procedure Data Cath Procedure Fluoroscopy Diagnostic fluoroscopy Total fluoroscopy Time: 8.6 time: 8.6 min min Diagnostic fluoroscopy Total fluoroscopy dose: 596 dose: 596 mGy mGy Contrast Material Contrast Material Type Amount (ml) Isovue 300 120 Entry Location Entry Primary Successful Side Size Upsize Upsize Entry Closure Succes sful Closure Location (Fr) 1 (Fr) 2 (Fr) Remarks Device Remarks Femoral Right 5 Fr 6 Fr Exoseal artery Short Estimated blood loss: 10 ml Diagnostic catheters Device Type Used For End Catheter Placement MULTIPACK Pigtail 5 Fr Procedure catheter MULTIPACK JL 4.0 5Fr Procedure catheter MULTIPACK 3DRC 5Fr Procedure catheter DIAGNOSTIC AR2 MOD 5 Fr Procedure catheter ([id number]) Procedure Complications No complications Procedure Medications Medication Administration Route Dosage 0.9% NaCl I.V. 100 ml/hr Oxygen etCO2 Nasal cannula 2 l/min Heparin Flush Bag added to field 2 bags (1000units/500ml NS) Lidocaine 2% added to field 20 Versed I.V. 2 mg Fentanyl I.V. 100 mcg Versed I.V. 2 mg Fentanyl I.V. 100 mcg Versed I.V. 1 mg Versed I.V. 1 mg Heparin Bolus I.V. 4000 units Fentanyl I.V. 50 mcg Fentanyl I.V. 50 mcg Hemodynamics Rest BSA: 1.6 (m2) HGB: 14.1 (g/dl) O2 Consumption: Estimated: 144.62 (ml/min) O2 Con sumption indexed: Estimated:90.39 (ml/min/m) Heart Rate: 54 (bpm) Snapshots Pre Cath Intra NCS Post Cath Vital Signs Time Heart Resp SPO2 etCO2 NIBP Rhythm Pain Sedation Rate (ipm) (%) (mmHg) (mmHg) Status Level (bpm) 9:26:39 55 18 100 43.3 105/59(72) NSR 0 (11) 10(A) , No pain 9:30:46 52 16 100 42.5 96/53(71) NSR 0 (11) 10(A) , No pain 9:34:52 60 10 99 43.3 95/51(70) NSR 0 (11) 10(A) , No pain 9:38:58 53 14 99 44.8 101/47(70) NSR 0 (11) 10(A) , No pain 9:43:06 59 15 98 39.4 89/51(63) NSR 0 (11) 10(A) , No pain 9:47:06 62 12 98 35.6 96/62(77) NSR 0 (11) 10(A) , No pain 9:51:13 56 16 98 23.5 86/45(57) NSR 0 (11) 10(A) , No pain 9:55:11 54 17 98 45.5 97/61(81) NSR 0 (11) 10(A) , No pain 9:59:17 52 16 98 22 90/50(62) NSR 0 (11) 10(A) , No pain 10:03:17 57 19 98 41.8 103/60(78) NSR 0 (11) 10(A) , No pain 10:07:24 54 19 98 44.8 91/50(58) NSR 0 (11) 10(A) , No pain 10:11:26 62 23 98 34.1 94/57(78) NSR 0 (11) 10(A) , No pain 10:15:32 57 15 97 43.3 81/47(59) NSR 0 (11) 10(A) , No pain 10:19:33 67 16 85 0 88/46(66) NSR 0 (11) 10(A) , No pain 10:23:33 72 10 98 44 103/63(85) NSR 0 (11) 10(A) , No pain 10:27:39 61 10 97 45.6 98/55(77) NSR 0 (11) 10(A) , No pain 10:31:47 61 19 98 37.2 90/48(65) NSR 0 (11) 10(A) , No pain 10:35:49 70 17 97 39.5 98/56(79) NSR 0 (11) 10(A) , No pain 10:39:56 68 18 97 42.5 84/47(61) NSR 0 (11) 10(A) , No pain 10:43:56 82 14 98 44.8 99/54(75) NSR 0 (11) 10(A) , No pain 10:48:02 75 17 97 37.9 85/52(64) NSR 0 (11) 10(A) , No pain 10:52:03 70 12 98 28.1 90/50(70) NSR 0 (11) 10(A) , No pain Medications Time Medication Route Dose Verified Delivered Reason Notes Effectiveness by by 9:27:46 0.9% NaCl I.V. 100 Tono Tono Per physician ml/hr Jana Bates RN RN 9:27:54 Oxygen etCO2 2 Tono Tono for low 02 sats Nasal l/min Jana Bates cannula RN RN 9:28:06 Heparin Flush added 2 Tono Tono used for Bag to bags Jana Bates procedure (1000units/500ml field RECINOS RN NS) 9:28:16 Lidocaine 2% added 20ml Tono Tono for local to vial Jana Bates anesthetic field RECINOS RN 10:13:28 Versed I.V. 2 mg Tono Tono for sedation Jana Bates RN RN 10:13:37 Fentanyl I.V. 100 Tono Tono for sedation mcg Jana Bates RN RN 10:21:25 Versed I.V. 2 mg Tono Tono for sedation Jana Bates RN RN 10:21:31 Fentanyl I.V. 100 Tono Tono for sedation mcg Jana Bates RN RN 10:22:41 Versed I.V. 1 mg Tono Tono for sedation Jana Bates RN RN 10:24:14 Versed I.V. 1 mg Tono Tono for sedation Lorigan Lorigan RN RN 10:38:02 Heparin Bolus I.V. 4000 Tono Tono for units Jana Bates anticoagulation RN RN 10:41:17 Fentanyl I.V. 50 Tono Tono for sedation mcg Jana Bates RN RN 10:43:18 Fentanyl I.V. 50 Tono Tono for sedation mcg Jana Bates RN software sales manager Log Time Note 9:05:59 Liv Landry RN sent for patient. Start room use. 9:09:48 Informed consent obtained and on chart 9:11:46 Procedure Status Elective Heart Cath (OP). 9:12:16 Time tracking: Regular hours (M-F 7:00 - 5:00) 9:12:21 Plan of Care:Hemodynamics will remain stable., Cardiac rhythm will remain stable., Comfort level will be maintained., Respiratory function will remain adequate., Patient/ family verbilizes understanding of procedure., Procedure tolerated without complication., Recovers from procedure without complications.. 9:12:35 H&P Date Dictated: 01/04/2019 Within 30 days and on chart., H&P Addendum completed by physician on day of procedure. (MUST COMPLETE FOR ALL OUTPATIENTS). 9:12:54 Patient allergic to Other allergyMORPHINE, PCN, STADOL 9:13:19 ACCPatient has been prescribed/administered the following anti-anginal medication within the last 2 weeks: Beta Layla 9:13:59 ACC Patient presents with Stable Angina CCS Anginal Class 4--Inability to carry out any physical activity w/o angina. Angina may occur at rest. 9:16:06 Patient Weight : 119.05 lbs 9:16:30 Patient Height : 66 inches 9:19:18 Arrival Date: 01/08/2019 12:00:00 AM 9:19:44 Indication : Angina 9:19:53 Patient received from Pre/Post Procedure Room to CCL 2 Alert and oriented. Tansferred to table in Supine position. 9:19:54 Warm blankets applied, and terese hugger turned on for patient comfort. 9:19:54 Correct patient and procedure confirmed by team. 9:19:55 ECG and BP/O2 sat monitors applied to patient. 9:25:24 Vital chart was started 9:25:25 Baseline sample Acquired. 9:25:29 Rhythm: sinus bradycardia 9:25:30 Full Disclosure recording started 9:25:31 Pre-procedure instructions explained to patient. 9:25:31 Pre-op teaching completed and patient verbalized understanding. 9:25:34 Family in patients room. 9:25:36 Patient NPO since Midnight. 9:25:38 Is patient on blood thinner?Yes 9:25:40 ACC The patient was administered the following blood thiners within the last 24 hours: ACCPlavix 9:25:45 Patient diabetic? No. 9:26:19 Patient not . Patient has had hysterectomy. 9:26:22 Previous problem with sedation/anesthesia? No ? 9:26:23 Snore? Yes 9:26:24 Sleep apnea? No 9:26:25 Deviated septum? No 9:26:26 Opens mouth fully? Yes 9:26:27 Sticks out tongue? Yes 9:26:29 Airway obstruction? Yes COPD 9:26:31 Dentures? No ? 9:26:37 Pre procedure: right dorsailis pedis pulse Doppler 9:26:42 Patient pain scale 0/10 ?. 9:26:49 IV patent on arrival in left hand with 0.9% NaCl at [facility]. 9:27:34 Lab Result : BUN 8 mg/dl 9:27:34 Lab Result : eGFR NONAFRICAN 49 ml/min 9:27:34 Lab Result : Creatinine 1.2 mg/dl 9:27:34 Lab Result : Hemoglobin 14.1 g/dl 9:27:34 Lab Result : Hematocrit 41.7 % 9:27:45 Lab results completed and on chart. 9:27:46 0.9% NaCl 100 ml/hr I.V. was administered by Tono Bates RN; Per physician; Verbal order read back and verified. 9:27:54 Oxygen 2 l/min etCO2 Nasal cannula was administered by Tono Bates RN; for low 02 sats; Verbal order read back and verified. 9:28:05 Stress Test: no; N/A ? 9:28:06 Heparin Flush Bag (1000units/500ml NS) 2 bags added to field was administered by Tono Bates RN; used for procedure; Verbal order read back and verified. 9:28:16 Lidocaine 2% 20ml vial added to field was administered by Tono Lorigan RN; for local anesthetic; Verbal order read back and verified. 9:28:16 Risk of Mortality: .5 9:28:21 Risk of blood transfusion: 1.8 9:28:25 Risk of PAPITO: .9 9:28:30 Right groin area was prepped with chlora-prep and draped in sterile fashion 9:28:31 Alarms reviewed by R. N. 9:28:31 Sharps counted by scrub and verified by R.N. 9:28:35 Use device set Femoral Dx 9:28:36 ACIST Syringe (77224) opened to sterile field. 9:28:36 Bag Decanter (2002S) opened to sterile field. 9:28:37 ACIST Hand Control (20628) opened to sterile field. 9:28:38 ACIST Manifold (02984) opened to sterile field. 9:28:39 Tegaderm 4 x 4 (1626W) opened to sterile field. 9:28:42 Medline Cath Pack ([id number]) opened to sterile field. 9:28:43 DIAGNOSTIC Multipack 5Fr catheter set (JC2482) opened to sterile field. 9:28:43 SHEATH 5FR Polacca (EQT324) opened to sterile field. 9:28:44 EMERALD Guide Wire (160-449) opened to sterile field. 9:42:45 Zero performed for pressure channel P1 10:11:56 --------ALL STOP TIME OUT------ 10:11:57 Final Timeout: patient, procedure, and site verified with staff and physician. All members of the team are in agreement. 10:11:58 Right groin site verified by team. 10:12:02 Fire Safety Assessment: A--An alcohol-based skin anteseptic being used preoperatively., C--Open oxygen or nitrous oxide is being used., D--An ESU, laser, or fiber-optic light is being used. 10:12:06 Physical assessment completed. ASA score P 3 - A patient with severe systemic disease as per Jc Rice MD. 10:12:10 3a) 45-59 Moderately reduced kidney function. 10:12:14 Maximum allowable contrast dose (3.7 X eGFR X 0.75)219 ml. 10:12:18 Sedation plan: IV Moderate Sedation Medication:Versed, Fentanyl 10:13:28 Versed 2 mg I.V. was administered by Tono Bates RN; for sedation; Verbal order read back and verified. 10::37 Fentanyl 100 mcg I.V. was administered by Tono Bates RN; for sedation; Verbal order read back and verified. 10::38 ECG and BP/O2 sat monitors applied to patient. 10:20:43 Procedure started. 10::49 Local anesthetic to right femoral artery with Lidocaine 2% by Jc Rice MD.INITIAL ACCESS ONLY 10::25 Versed 2 mg I.V. was administered by Tono Bates RN; for sedation; Verbal order read back and verified. 10::31 Fentanyl 100 mcg I.V. was administered by Tono Bates RN; for sedation; Verbal order read back and verified. 10:22:09 A 5 Fr sheath was inserted into the Right Femoral artery 10::30 A MULTIPACK Pigtail 5 Fr catheter was advanced over the wire and used for Procedure. 10::41 Versed 1 mg I.V. was administered by Tono Bates RN; for sedation; Verbal order read back and verified. 10:23:08 LV angiography performed. 10:23:10 LV gram done using AMANDA 10:23:16 EF : 55 % 10:23:19 LV hemodynamics recorded. 10::30 Injector settings: Ml/sec: 10, Volume: 20, 10:23:31 Catheter removed. 10:24:09 A MULTIPACK JL 4.0 5Fr catheter was advanced over the wire and used for Procedure. 10:24:14 Versed 1 mg I.V. was administered by Tono Bates RN; for sedation; Verbal order read back and verified. 10:24:26 LOW closed. 10:26:21 LCA angiography performed. 10:26:23 Catheter removed. 10::38 A MULTIPACK 3DRC 5Fr catheter was advanced over the wire and used for Procedure. 10:27:00 RCA closed. 10:27:07 Catheter removed. 10:27:12 A DIAGNOSTIC AR2 MOD 5 Fr catheter (044276V) was advanced over the wire and used for Procedure. 10:28:11 SVG to RCA angiography performed. 10:28:17 Catheter removed. 10:28:20 ACCDominant side:Co-Dominant 10:28:22 Use device set TAU PCI 10:28:24 SHEATH 6FR [place]acc[place] (IYE588) opened to sterile field. 10:28:28 INFLATOR Merit BasixCompak (IM3356) opened to sterile field. 10:28:41 Houstonia Verrata Plus pressure wire (25061G) opened to sterile field. 10:29:10 GUIDE 6FR XBLAD 3.5 catheter ([id number]) opened to sterile field. 10:29:44 Sheath upsized to a 6 Fr Short. 10:29:57 6 Fr XBLAD 3.5 guide catheter was inserted over the wire 10:30:49 FFR/IFR wire advanced. 10:32:52 Wire advanced across lesion. 10:33:41 mLAD lesion measured at 0.74 with IFR 10:35:42 Pre PCI Site: [place] mLAD has 80% stenosis. 10:35:49 ACC Pre-intervention MAINOR Flow is 3. 10:35:57 LASER ELCA 0.9 Rx atherectomy catheter (781486) opened to sterile field. 10:36:55 LASER catheter advanced. 10:37:50 Laser pass to mLAD with Fluence of 80 and Rate of 40. 10:38:02 Heparin Bolus 4000 units I.V. was administered by Tono Bates RN; for anticoagulation; Verbal order read back and verified. 10:39:43 Multiple laser passes to mLAD with Fluence of 80 and Rate of 40. 10:41:17 Fentanyl 50 mcg I.V. was administered by Tono Bates RN; for sedation; Verbal order read back and verified. 10:42:08 Laser catheter removed. 10:42:43 Inflate balloon Inflation number: 1 A EUPHORA 3.0 x 20 Balloon ([id number]) was prepped and advanced across the Mid LAD 80, then inflated to 15 SHERRI for 0:10 (min:sec) . 10:43:18 Fentanyl 50 mcg I.V. was administered by Tono Bates RN; for sedation; Verbal order read back and verified. 10:43:38 Multiple inflations made at 15 Atms to mLAD. 10:43:52 Multiple inflations made at 19 Atms to mLAD. 10:45:34 Post PCI Site: [place] mLAD has 0% stenosis. 10:45:37 ACC Post-intervention MAINOR Flow is 3. 10:45:59 Balloon removed over the wire. 10:46:00 EXOSEAL 6Fr (EX600) opened to sterile field. 10:46:00 Wire removed. 10:46:01 Guide catheter removed. 10:46:42 Sheath removed intact; hemostasis achieved with Exoseal to the Right Femoral artery. 10:46:45 Procedure ended.(Physican Out) 10:47:19 Laser total pulses delivered: 3600 10:47:23 Laser total treatment time: 1 minutes 30 seconds 10:48:30 Fluoroscopy time 08.60 minutes. 10:48:34 Flurop Dose total: 596 10:48:34 Fluoroscopy dose: 596 mGy 10:48:40 Dose Area Product 45030 mGy/cm. 10:48:43 Contrast amount:Isovue 300 120ml. 10:48:45 Maximum allowable dose exceeded? No. 10:48:47 Sharps counted by scrub and verified by R.N. 10:49:58 Insertion/operative site no bleeding no hematoma. 10:50:02 Post-op/insertion site Right Femoral artery dressed using a 4 x 4 and Tegaderm. 10:50:03 Post Procedure Pulses reassessed and unchanged 10:50:05 Post-procedure physical assessment completed. ASA score P 2 - A patient with mild systemic disease as per Jc Rice MD. 10:50:07 Post procedure rhythm: unchanged. 10:50:14 Estimated blood loss: 10 ml 10:50:16 Post procedure instruction explained to patient.Patient verbalizes understanding. 10:50:16 Patient needs reinforcement of post procedure teaching. 10:50:37 Procedure type changed to Cath procedure, Diagnostic procedure, LHC, C w/Coronaries w/Grafts, FFR/IVUS, FFR Initial, PCI procedure, Coronary Atherectomy, Atherectomy w/PTCA Coronary Initial 10:50:38 Procedure and supply charges have been captured, reviewed, submitted and are correct. 10:50:41 Procedure Complication : No complications 10:52:59 ACT drawn and resulted at high, out of range seconds. (normal therapeutic range 180-240 seconds). 10:53:34 Vital chart was stopped 10:53:42 [facility] Findings: MVD- PCI performed (see procedure note) 10:53:44 Operative report dictated upon procedure completion. 10:53:45 See physician's report for complete and final results. 10:53:48 Report given to Pre/Post Procedure Room. 10:53:51 Patient transfered to Pre/Post Procedure Room with Stretcher. 10:53:53 Procedure ended. 10:53:53 Full Disclosure recording stopped 10:55:52 End room use (Document Last) Intervention Summary Intervention Notes Time ActionType Lesion and Equipment Action# Pressure Duration Attributes Used 10:42:43 Inflate Mid LAD EUPHORA 1 15 00:10 balloon 3.0 x 20 Balloon ([id number]) Device Usage Item Name Manufacture Quantity Catalog Hospital Part Current Minima l Lot# / Number Charge Number Stock Stock Serial# Code ACIST Acist 1 86997 243918 279941 712054 20 Syringe Medical (76581) Systems Inc Bag Microtek 1 855116 15075 492628 5 Decanter Medical Inc. () ACIST Hand Acist 1 25706 289751 076340 100511 5 Control Medical (65722) Systems Inc ACIST Acist 1 48631 241174 348094 435884 5 Manifold Medical (71570) Systems Inc Tegaderm 4 3M 1 1626W 347301 947032 747311 5 x 4 (1626W) Medline Medline 1 [id number] 607923 97035 284989 5 Cath Pack ([id number]) DIAGNOSTIC Cardinal 1 CX5053 524076 51465 014850 30 Multipack Health 5Fr catheter set (DG8526) SHEATH 5FR Terumo 1 POB555 374481 307804 600278 5 Polacca (WCT246) EMERALD Cardinal 1 502-455 284295 184673 531542 5 Guide Wire Health (502-455) MULTIPACK Cardinal 1 760182 5 Pigtail 5 Health Fr catheter MULTIPACK Cardinal 1 976563 5 JL 4.0 5Fr Health catheter MULTIPACK Cardinal 1 611641 5 3DRC 5Fr Health catheter DIAGNOSTIC Cardinal 1 [id number] 383610 946269 041056 20 AR2 MOD 5 Health Fr catheter (470029P) SHEATH 6FR Terumo 1 DSZ929 051299 418086 736916 40 Polacca (FWY287) INFLATOR [facility] 1 IR1184 085747 768407 844036 15 [facility] NeighborGoods BasixCompak (KZ3643) Houstonia Houstonia 1 49136B 656175 646500299 336600 5 Verrata Plus pressure wire (60907N) GUIDE 6FR Cardinal 1 [id number] 654606 594082 020729 10 XBLAD 3.5 Health catheter (03941024) LASER ELCA Marian 1 110-004 657585 021399 156708 5 0.9 Rx Healthcare atherectomy (897358) catheter (130115) EUPHORA 3.0 Medtronic 1 [id number] 478873 290748 685127 5 [id number] x 20 Balloon ([id number]) EXOSEAL 6Fr Cardinal 1 EX600 434779 138359 336986 10 (EX600) Health Signature Audit [place] Stage Time Signature Unsigned Intra-Procedure 01/08/2019 Jan Fairbanks 10:54:15 AM RT(R) Intra-Procedure 01/08/2019 Tono 10:55:47 AM Jana RECINOS Intra-Procedure 01/08/2019 Jc Rice 10:56:31 AM Signatures Performing Physician : Signature : Jc Rice MD Date : Time : Nurse : Tono Bates Signature : RN Date : Time : Monitor : Jan Fairbanks RT Signature : Date : Time : [facility] [address] [place] [address]
[~2019-01-08 07:47] MED LIST changes: +BISOPROLOL-HCT1 EAC1 PO
[2019-01-08 08:26] VITALS: BP 112/64; Ht 167.6 cm; Wt 53.6 kg
[2019-01-08 08:30] LABS: BASOPHILS 0.1 % (0-2); EOSINOPHILS 0.4 % (0-7); HEMATOCRIT 41.7 % (36.0-48.0); HEMOGLOBIN 14.1 g/dL (12-16); IMMATURE GRANULOCYTES 0.1 % (0-5); LYMPHOCYTES 28.7 % (15-50); MCH 33.7 pg (26.0-34.0); MCHC 33.8 g/dL (31.0-37.0); MCV 99.5 fL (80.0-100.0); MEAN PLATELET VOLUME 10.3 fL (7.4-10.4); MONOCYTES 5.2 % (2-11); NEUTROPHILS 65.5 % (40-80); PLATELET COUNT 194 10x3/uL (130-400); RBC 4.19 10x6/uL (4.00-5.40); RDW 13.1 % (11.5-14.5); WBC 7.1 10x3/uL (4.8-10.8)
[2019-01-08 08:42] LABS: ANION GAP 7.4 mmol/L (8-16); CALCIUM 8.6 mg/dL (8.5-10.1); CARBON DIOXIDE 34.1 mmol/L (21.0-32.0); CHOL - HDL RATIO 3.1 ratio (2.3-4.1); CREATININE - SERUM 1.2 mg/dL (0.6-1.3); LDL-HDL RATIO 1.5 ratio (1.5-3.5); POTASSIUM - SERUM 3.5 mmol/L (3.5-5.1)
--- NOTE | 2019-01-08 11:05 | NUR ---
PT RECEIVED VIA STRETCHER FROM POUNCER MACHINE FOR RECOVERY. PT AWAKE AND ALERT, C/O BACK PAIN, NO CHEST PAIN OR DISCOMFORT. PT PLACED ON CARDIAC MONITORS, O2 ON AT 2L/NC. HR NSR RATE 59, BP 93/51, O2 SAT 99. R GROIN W 6 FR EXOCELE, DRESSING CDI NO BLEEDING OR HEMATOMA NOTED. LEG PINK AND WARM, PEDAL PULSES PALPABLE. IV PATENT INFUSING VIA ORDERS. CALL LIGHT IN REACH, S/O AT BEDSIDE.
--- NOTE | 2019-01-08 11:28 | NUR ---
PATIENT C/O BACK PAIN, ORDERS RECEIVED AND 1MG DILAUDID GIVEN SIVP PER Yair CORTEZ RN. R GROIN DRESING CDI NO BLEEDING OR SWELLING NOTED. LEG PINK AND WARM, PEDAL PULSES PALAPBLE. CALL LIGHT IN REACH, S/O AT BEDSIDE.
--- NOTE | 2019-01-08 12:20 | NUR ---
PT C/O BACK PAIN STILL IT IS SOME BETTER DOESN'T WANT ANYMORE PAIN MEDICINE AT THIS TIME. R GROIN SOFT, DRESSING REMAINS CDI NO BLEEDING OR HEMATOMA NOTED. HR 60, BP 95/54, OR SAT 100 ON 2L. CALL LIGHT IN REACH. PT PLACED ON BEDPAN UNABLE TO VOID AT THIS TIME.
--- NOTE | 2019-01-08 12:45 | NUR ---
PT RESTING W/O COMPLAINTS. VSS. GROIN SOFT, DRESSING CDI NO BLEEDING OR SWELLING NOTED. LEG PINK AND WARM, PEDAL PULSES PALPABLE. CALL LIGHT IN REACH, S/O AT BEDSIDE
--- NOTE | 2019-01-08 13:15 | NUR ---
PT RESTING W EYES CLOSED, BP 79/45, FLUIDS INCREASED, HOB LOWERED. BP CUFF CHANGED TO OTHER ARM, RETAKEN, 91/45. PT STATES "BP RUNS LOW SOMETIMES AFTER PAIN MEDICINE. GROIN REMAINS SOFT, DRESSING CDI NO BLEEDING OR HEMATOMA NOTED. CALL LIGHT IN REACH.
--- NOTE | 2019-01-08 13:45 | NUR ---
GROIN SOFT, SMALL AMOUNT OF BLEEDING NOTED ON DRESSING. FEMOSTOP PLACED SECURE, NO PRESSURE INFLATED IN BULB. WILL CONTINUE TO MONITOR. HR 63, BP 80/45, O2 SAT 99 ON ROOM AIR AFTER O2 REMOVED. IV PATENT INFUSING VIA ORDERS. CALL LIGHT IN REACH.
--- NOTE | 2019-01-08 14:07 | NUR ---
NO FURTHER BLEEDING NOTED ON DRESSING, SITE FEELS SOFT AROUND FEMOSTOP. LEG PINK AND WARM, PEDAL PULSES PALPABLE. VSS. CALL LIGHT IN REACH
--- NOTE | 2019-01-08 14:13 | NUR ---
FEMOSTOP REMOVED, AREA MARKED TO WATCH FOR ANY FURTHER BLEEDING. SITE SOFT. HOB ELEVATED SLIGHTLY. PT OFFERED DRINK AND SANDWICH, SHE REFUSED. WANTING TO GET UP AND WALK TO BR. EXPLAINED I WOULD LET HER UP ABOUT 230. CALL LIGHT IN REACH
--- NOTE | 2019-01-08 14:34 | NUR ---
IV REMOVED W CATH INTACT, MONITORS REMOVED AND PT UP TO DRESS WITH ASSIST. GROIN SOFT, NO MORE BLEEDING NOTED.
--- NOTE | 2019-01-08 14:40 | NUR ---
PT AMBULATED TO BR, VOIOING W/O DIFFICULITY. 1445 PT DISCHARGED VIA WC TO S/O WAITING IN PRIVATE VEHICLE. PT HAD ALL BELONGINGS AND DISCHARGE INFORMATION
--- NOTE | 2019-01-13 14:07 | OP ---
PATIENT NAME: ARTUR LZU MEDICAL RECORD: [id number] :61 LOCATION:D.CAT ADMISSION DATE: SURGEON: LAURA HIRSCH MD DATE OF OPERATION: 01/08/2019 DATE OF SERVICE: 01/08/2019 PROCEDURES: 1. PTCA, laser atherectomy LAD. 2. IFR LAD. 3. Left heart catheterization. 4. Selective coronary angiography. 5. Left ventriculogram. 6. LOW angiography. 7. Vein graft angiography. INDICATION: Angina and coronary artery disease. PROCEDURE IN DETAIL: After informed consent was obtained and after a detailed description of the risks, benefits as well as alternative therapies, the patient elected to proceed with angiogram and angioplasty. The right femoral area was prepped and draped in normal sterile fashion. Right femoral artery was cannulated via modified Seldinger technique with placement of 6-Swedish sheath. All catheters exchanged through this sheath. FINDINGS: Left ventriculogram was performed in a standard 30-degree AMANDA view, reveals good cardiac wall motion, ejection fraction 70%. SELECTIVE CORONARY ANGIOGRAPHY: 1. Left main is with no significant angiographic disease. 2. Left anterior descending has previously placed stents with greater than 75% in-stent restenosis and IFR was abnormal at 0.74. 3. The left circumflex has mild irregularities, but no flow-limiting stenosis. 4. Right coronary is totally occluded. 5. Vein graft to the right coronary is widely patent. Distal stent in the right coronary after the vein graft is widely patent. 6. LOW is closed at the LAD. Laser atherectomy, PTCA of the LAD; multiple passes were made with 0.9 laser catheter 80/40. Ballooning was undertaken with a 3.0 balloon taken to 19 atmospheres. Result was 0% residual stenosis. OVERALL IMPRESSION: Successful percutaneous transluminal coronary angioplasty, laser atherectomy of the left anterior descending for in-stent restenosis going from 75+ percent initial stenosis to 0% residual. TRANSINT:[id number] Voice Confirmation ID: [id number] DOCUMENT ID: [id number] OPERATIVE REPORT [id number] ARTUR LUZ JEFFREY MD at 1407 CC: [id number] DICTATION DATE: 01/08/19 1050 DIRECTOR PHARMACEUTICAL: 01/08/19 1134 DEP CLI 01/08/19 [facility] [address] [place] [address]
== END 2019-01-08 14:45 | disposition home or self-care (01) ==
LOC: D.CATH 07:47
PROVIDERS: ATTEND Internal Medicine Interventional Cardiology
DX: I25.110 Atherosclerotic heart disease of native coronary artery with unstable angina pectoris (principal); R06.02 Shortness of breath